=== PATIENT | male | born 1980 | race Caucasian/White ===

== ENCOUNTER 2019-04-18 05:38 | Outpatient (RCR) | payer MEDICARE, SELFPAY | END 2019-04-26 00:01 | LOC: ONCMED 05:38 | PROVIDERS: Family Provider Nurse Practitioner; Visit Provider Internal Medicine Hematology & Oncology | DX: C74.01 Malignant neoplasm of cortex of right adrenal gland (principal); C79.51 Secondary malignant neoplasm of bone; C78.7 Secondary malignant neoplasm of liver and intrahepatic bile duct; E89.6 Postprocedural adrenocortical (-medullary) hypofunction; R93.0 Abnormal findings on diagnostic imaging of skull and head, not elsewhere classified; F17.200 Nicotine dependence, unspecified, uncomplicated; Z90.5 Acquired absence of kidney; Z91.19 Patient's noncompliance with other medical treatment and regimen; Z93.1 Gastrostomy status; Z79.899 Other long term (current) drug therapy ==

== ENCOUNTER 2019-05-14 11:19 | Emergency (ER) | payer MEDICARE, SELFPAY ==
[2019-05-14 11:23] VITALS: BP 124/81; PULSE 99; RESP 20; TEMP 36.4; O2SAT 97; BMI 25.3
--- NOTE | 2019-05-14 11:30 | ED_ITS ---
Entered by Francien Ordonez, acting as scribe for May 14, 2019 11:19 HPI - Fever General: Chief Complaint: Fever Stated Complaint: Fever Time Seen by Provider: 05/14/19 11:52 Source: patient Mode of arrival: ambulatory Limitations: no limitations History of Present Illness: HPI Narrative: 38 yo male presents with fever, cough and congestion. pt states this started 3 days ago. pt states he has cancer and is suppose to be seeing oncology and getting chemo treatments but he has refused till he went to [place]. pt states he now has a follow up at our oncolog ist office next week. pt states he just overall feels like crap . pt denies any other symptoms at this time. MD elicited complaint: fever, weakness (tingling in L hand) and other (chest pain) Onset (ago): day(s) (3 days ago) Context: other (cancer) Exacerbating factors: exertion and other (cough) Relieving factors: nothing Associated symptoms: Reports abdominal pain, chest pain, cough, nasal congestion and other (fever at home 101.9); Deny back/flank pain, confusion, dysuria, extremity pain, headache(s) or night sweats Treatments prior to arrival fever: none Review of Systems Const: Denies: malaise or night sweats Eyes: Denies: change in vision or blurry vision ENMT: Reports: nasal congestion Card: Reports: chest pain Resp: Denies: shortness of breath, productive cough, non-productive cough or wheezing GI: Reports: abdominal pain : Denies: flank pain, difficulty urinating, painful urination, urinary frequency, urinary urgency, urinary incontinence or blood in urine Musc: Denies: neck pain, back pain, extremity pain, extremity swelling, joint pain or joint swelling Skin/Breast: Denies: rash, itching or redness Neuro: Denies: headache, numbness in extremities, weakness in extremities, changes in sensation, lack of coordination, difficulty walking, frequent falls, dizziness, vertigo or confusion Psych: Denies: anxiety, depression, loss of interest, visual hallucinations, auditory hallucinations, suicidal ideation or homicidal ideation Endo: Denies: excessive urination, excessive thirst, tired all the time or cold intolerance Papo/Lymph: Denies: easy bruising, easy bleeding, petechiae, enlarged lymph nodes or tender lymph nodes PFSH ED PFSH: Statuses (acute, chronic, etc) shown below reflect problem list status as previously entered and may not be historically accurate Medical History Cancer (Acute) Social History Smoking and tobacco status: current every day smoker Physical Exam Const: COMMON NORMALS: average body habitus, oriented x3 and alert GENERAL APPEARANCE: cooperative, comfortable, well kempt and well developed NUTRITIONAL APPEARANCE: obese ORIENTATION/CONSCIOUSNESS: Yes awake, Yes oriented to person and Yes oriented to place HENMT: COMMON NORMALS: normocephalic, head/scalp atraumatic, EAC's normal, TM's normal bilaterally, external nose normal, moist oral mucous membranes and oropharynx normal HEAD & SCALP: normocephalic and atraumatic NOSE: external nose normal EXTERNAL AUDITORY CANAL: EAC's normal TYMPANIC MEMBRANE: TM's normal bilaterally MOUTH: oral and palatal mucosa normal, lip normal and tongue normal THROAT: posterior oropharynx normal and tonsils normal Eye: COMMON NORMALS: PERRL, EOMs intact bilaterally, conjunctivae normal and no scleral icterus CONJUNCTIVA: Yes conjunctivae normal PUPIL: Yes PERRL Neck/C-Spine: COMMON NORMALS: full ROM, no lymphadenopathy, supple, no meningeal signs and thyroid normal THYROID: thyroid normal and asymmetrical Lymph: LYMPHATIC: no lymphadenopathy noted Resp: COMMON NORMALS: normal respiratory effort, no retractions, no use of accessory muscles and clear to auscultation bilaterally AUSCULTATION: clear to auscultation bilaterally Cardio: COMMON NORMALS: regular rate and regular rhythm RATE: regular rate RHYTHM: regular rhythm HEART SOUNDS: no murmurs : COMMON NORMALS: Yes no CVA tenderness BLADDER/KIDNEY EXAM: Yes no CVA tenderness Back/Pelvis: COMMON NORMALS: no CVA tenderness LUMBAR SPINE/LOWER BACK: Yes normal to inspection Extremity: COMMON NORMALS: no clubbing, cyanosis or edema, no calf tenderness and no pedal edema Neuro: COMMON NORMALS: oriented x3 SENSORIUM/ORIENTATION: Yes alert, Yes oriented to person and Yes oriented to place MENINGEAL SIGNS: Yes no meningeal signs Psych: APPEARANCE: Yes well kempt Skin: COMMON NORMALS: no rashes or lesions noted and skin turgor normal GENERAL SKIN EXAM: no rashes or lesions noted and turgor normal Course Vital Signs: Vital signs: Vital Signs Temperature 97.5 F L 05/14/19 11:23 Pulse Rate 85 05/14/19 15:00 Respiratory Rate 18 05/14/19 15:00 Blood Pressure 127/88 05/14/19 15:00 Pulse Oximetry 96 05/14/19 15:00 MDM - Fever Lab Data: Labs: Lab Results 05/14/19 05/14/19 05/14/19 Range/Units 13:18 13:18 13:18 WBC 6.7 (4.0-10.0) 10^3/ uL RBC 3.76 L (4.1-5.3) 10^6/u L Hgb 11.0 L (11.7-16.6) g/dL Hct 34.0 L (42.0-52.0) % MCV 90.4 (80-94) fL MCH 29.3 (28.0-34.0) pg MCHC 32.4 (30.0-36.0) g/dL RDW 14.0 (12.1-15.1) % Plt Count 135 (130-400) 10^3/c mm MPV 9.7 (7.4-10.4) fL Neut % (Auto) 68.5 % Lymph % (Auto) 17.7 % Traill % (Auto) 6.9 % Eos % (Auto) 6.2 % Baso % (Auto) 0.5 % Neut # (Auto) 4.6 (1.8-7.7) 10^3/u L Lymph # (Auto) 1.2 (0.8-4.8) 10^3/u L Traill # (Auto) 0.5 (0.2-0.9) 10^3/u L Eos # (Auto) 0.4 (0.0-0.8) 10^3/u L Baso # (Auto) 0.0 (0.0-0.1) 10^3/u L Nucleated RBC % (a uto) 0 % Nucleated RBCs # 0.0 /100WBC Sodium 130 L (136-145) mmol/L Potassium 4.4 (3.5-5.1) mmol/L Chloride 99 (98-107) mmol/L Carbon Dioxide 19 L (22-29) mmol/L Anion Gap 16.4 (5-19) BUN 20 (6-20) mg/dL Creatinine 1.0 (0.7-1.2) mg/dL GFR Calculation 83.2 L (90-130) mL/min Glucose 118 H (74-109) mg/dL Calcium 7.4 L (8.6-10.0) mg/Dl Total Bilirubin 0.2 (0.15-1.2) mg/dL AST 119 H (0-40) U/L ALT 58 H (0-41) U/L Alkaline Phosphata se 187 H (40-130) IU/L Total Protein 6.9 (6.6-8.7) g/dL Albumin 3.4 L (3.5-5.2) g/dL Globulin 3.5 (1.3-4.6) g/dL Lipase 32 (13-60) U/L Urine Color (Yellow) Urine Appearance (CLEAR) Urine pH (5-7) Ur Specific Gravit y (1.005-1.030) Urine Protein (Negative) Urine Glucose (UA) (Normal) Urine Ketones (Negative) Urine Occult Blood (Negative) Urine Nitrate (Negative) Urine Bilirubin (NEGATIVE) Urine Urobilinogen (Negative) mg/dL Ur Leukocyte Jesi ase (Negative) Urine RBC (0-2) /hpf Urine WBC (0-5) /hpf Ur Squamous Epith Cells (0-5) Amorphous Sediment Urine Bacteria (NONE) Hyaline Casts Coarse Granular Ca sts /lpf Urine Mucus Influenza Type A A g (Negative) POC Influenza B Ag (Negative) 05/14/19 05/14/19 Range/Units 13:23 13:43 WBC (4.0-10.0) 10^3/ uL RBC (4.1-5.3) 10^6/u L Hgb (11.7-16.6) g/dL Hct (42.0-52.0) % MCV (80-94) fL MCH (28.0-34.0) pg MCHC (30.0-36.0) g/dL RDW (12.1-15.1) % Plt Count (130-400) 10^3/c mm MPV (7.4-10.4) fL Neut % (Auto) % Lymph % (Auto) % Traill % (Auto) % Eos % (Auto) % Baso % (Auto) % Neut # (Auto) (1.8-7.7) 10^3/u L Lymph # (Auto) (0.8-4.8) 10^3/u L Traill # (Auto) (0.2-0.9) 10^3/u L Eos # (Auto) (0.0-0.8) 10^3/u L Baso # (Auto) (0.0-0.1) 10^3/u L Nucleated RBC % (a uto) % Nucleated RBCs # /100WBC Sodium (136-145) mmol/L Potassium (3.5-5.1) mmol/L Chloride (98-107) mmol/L Carbon Dioxide (22-29) mmol/L Anion Gap (5-19) BUN (6-20) mg/dL Creatinine (0.7-1.2) mg/dL GFR Calculation (90-130) mL/min Glucose (74-109) mg/dL Calcium (8.6-10.0) mg/Dl Total Bilirubin (0.15-1.2) mg/dL AST (0-40) U/L ALT (0-41) U/L Alkaline Phosphata se (40-130) IU/L Total Protein (6.6-8.7) g/dL Albumin (3.5-5.2) g/dL Globulin (1.3-4.6) g/dL Lipase (13-60) U/L Urine Color Yellow (Yellow) Urine Appearance Sl hazy (CLEAR) Urine pH 5 (5-7) Ur Specific Gravit y 1.020 (1.005-1.030) Urine Protein 1+ H (Negative) Urine Glucose (UA) Norm (Normal) Urine Ketones 1+ H (Negative) Urine Occult Blood 2+ H (Negative) Urine Nitrate Negative (Negative) Urine Bilirubin 1+ H (NEGATIVE) Urine Urobilinogen 4 H (Negative) mg/dL Ur Leukocyte Jesi ase Negative (Negative) Urine RBC 5-10 H (0-2) /hpf Urine WBC 10-15 H (0-5) /hpf Ur Squamous Epith Cells 10-15 H (0-5) Amorphous Sediment Trace Urine Bacteria 1+ H (NONE) Hyaline Casts 5-10 H Coarse Granular Ca sts 5-10 H /lpf Urine Mucus Trace Influenza Type A A g Positive H (Negative) POC Influenza B Ag Negative (Negative) Imaging Data^: CT Abd/Pel: Radiologist's impression: PROCEDURE INFORMATION: Exam: CT Abdomen And Pelvis With Contrast Exam date and time: 05/14/2019 1:04 PM Age: 38 years old Clinical indication: Abdominal pain, fever TECHNIQUE: Imaging protocol: Computed tomography of the abdomen and pelvis with intravenous contrast. Total DLP: 683.12 mGy-cm Radiation optimization: All CT scans at this facility use at least one of these dose optimization techniques: automated exposure control; mA and/or kV adjustment per patient size (includes targeted exams where dose is matched to clinical indication); or iterative reconstruction. Contrast material: VISIPAQUE; Contrast volume: 75 ml; Contrast route: IV; COMPARISON: CT ABDOMEN/PELVIS 12/14/2018 9:28 PM FINDINGS: Lungs: Calcified pulmonary granuloma in the right lower lobe. Minimal scarring or atelectasis in the left lower lobe. Liver: Multiple somewhat ill-defined, low-attenuation mass lesions are present in the liver compatible with metastatic disease. The largest appears to be in segment 1 and appears to have increased slightly in size, currently measuring approximately 5.3 cm worse previously it measured 5 cm in size. Gallbladder and bile ducts: Prior cholecystectomy. No biliary ductal dilatation allowing for that. Pancreas: No change since the prior exam. Spleen: Calcified granulomas present in a nonenlarged spleen. Adrenals: No left adrenal mass. A normal right adrenal gland is not visualized. This may have been removed given the fact that there are multiple clips in that location, but there is also a soft tissue mass in the typical location of the adrenal gland and therefore this may be an adrenal metastatic lesion versus local recurrence of malignancy. Correlate with whether not the patient has had a prior right adrenalectomy in the patient's surgical record. Kidneys and ureters: Prior right nephrectomy. No left renal mass, calculus, or hydronephrosis. Stomach and bowel: No acute osseous abnormality. Appendix: No ascites or pneumoperitoneum. Intraperitoneal space: No ascites or pneumoperitoneum. No abscess. Vasculature: No abdominal aortic aneurysm. No iliac or common femoral artery aneurysm. The mesenteric arteries are patent. There is mass effect upon the main portal vein, and near complete compression of the left portal vein, by the dominant metastatic deposit in segment 1. Lymph nodes: No enlarged lymph nodes. Bladder: The urinary bladder is small in volume. No bladder calculus. Reproductive: Unremarkable as visualized. Bones/joints: Lytic osseous metastatic deposits are present in the anterior right acetabulum and adjacent superior pubic ramus, posterior medial right ilium, and L4 vertebral body where the patient has had prior vertebral augmentation. No sign of progression of the osseous metastatic deposits. No change in a nonspecific sclerotic focus in the medial left ilium. Soft tissues: There is a soft tissue mass adjacent to the inferior margin of the left lobe of the liver. This mass currently measures approximately 7.9 cm in size whereas previously it measured 7 cm in size. This is compatible with enlargement of a neoplastic deposit. There is a partially calcified soft tissue mass and thickening of the adjacent posterior inferior diaphragm on the right. This is unchanged. This is likely related to neoplasm. CT/CT abdomen pelvis w con* [id number] IMPRESSION: 1. Progression of malignancy involving the liver, and left subhepatic space. 2. Osseous metastatic deposits appears stable. 3. 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 Condition: Stable Prescriptions: New Tamiflu 75 mg capsule 75 mg PO BID 5 Days Qty: 10 RF: 0 No Action Lysodren 500 mg tablet 2,500 mg PO BID RF: 0 alprazolam 1 mg tablet 1 mg PO BID RF: 0 morphine 30 mg tablet extended release 30 mg PO BID RF: 0 ondansetron 8 mg tablet,disintegrating 8 mg PO Q12H RF: 0 oxycodone-acetaminophen 10-325 mg tablet 1 tab PO Q6H PRN (Reason: Pain) RF: 0 morphine 15 mg tablet extended release 15 mg PO BID RF: 0 hydrocortisone 10 mg tablet 30 mg PO DAILY RF: 0 lorazepam 1 mg tablet 1 mg PO TID PRN (Reason: Nausea) RF: 0 sertraline 50 mg tablet 50 mg PO DAILY RF: 0 Discharge Orders: Discharge Order (Routine); Ordered 05/14/19 Ordered By: Chris Cisneros Referrals: Natividad Ying FNP [Primary Care Provider] - Activity Restrictions/Additional Instructions: Supportive care Tylenol and ibuprofen as needed follow-up with her oncologist as planned previously. Interventions: ED Discharge Assessment Last Done: 05/14/19 15:00 Discharge Date/Time: 05/14/19 14:55 Coding Level of Care Code ED [employer]ating Inspector for Chg Fwd Exam Problem Focused The documentation recorded by the José Luis green Bridget Annette, accurately reflects the service I personally performed and the decisions made by , Chris Cisneros, May 14, 2019 11:19
--- NOTE | 2019-05-14 12:46 | CTR_ITS ---
PROCEDURE INFORMATION: Exam: CT Abdomen And Pelvis With Contrast Exam date and time: 05/14/2019 1:04 PM Age: 38 years old Clinical indication: Abdominal pain, fever TECHNIQUE: Imaging protocol: Computed tomography of the abdomen and pelvis with intravenous contrast. Total DLP: 683.12 mGy-cm Radiation optimization: All CT scans at this facility use at least one of these dose optimization techniques: automated exposure control; mA and/or kV adjustment per patient size (includes targeted exams where dose is matched to clinical indication); or iterative reconstruction. Contrast material: VISIPAQUE; Contrast volume: 75 ml; Contrast route: IV; COMPARISON: CT ABDOMEN/PELVIS 12/14/2018 9:28 PM FINDINGS: Lungs: Calcified pulmonary granuloma in the right lower lobe. Minimal scarring or atelectasis in the left lower lobe. Liver: Multiple somewhat ill-defined, low-attenuation mass lesions are present in the liver compatible with metastatic disease. The largest appears to be in segment 1 and appears to have increased slightly in size, currently measuring approximately 5.3 cm worse previously it measured 5 cm in size. Gallbladder and bile ducts: Prior cholecystectomy. No biliary ductal dilatation allowing for that. Pancreas: No change since the prior exam. Spleen: Calcified granulomas present in a nonenlarged spleen. Adrenals: No left adrenal mass. A normal right adrenal gland is not visualized. This may have been removed given the fact that there are multiple clips in that location, but there is also a soft tissue mass in the typical location of the adrenal gland and therefore this may be an adrenal metastatic lesion versus local recurrence of malignancy. Correlate with whether not the patient has had a prior right adrenalectomy in the patient's surgical record. Kidneys and ureters: Prior right nephrectomy. No left renal mass, calculus, or hydronephrosis. Stomach and bowel: No acute osseous abnormality. Appendix: No ascites or pneumoperitoneum. Intraperitoneal space: No ascites or pneumoperitoneum. No abscess. Vasculature: No abdominal aortic aneurysm. No iliac or common femoral artery aneurysm. The mesenteric arteries are patent. There is mass effect upon the main portal vein, and near complete compression of the left portal vein, by the dominant metastatic deposit in segment 1. Lymph nodes: No enlarged lymph nodes. Bladder: The urinary bladder is small in volume. No bladder calculus. Reproductive: Unremarkable as visualized. Bones/joints: Lytic osseous metastatic deposits are present in the anterior right acetabulum and adjacent superior pubic ramus, posterior medial right ilium, and L4 vertebral body where the patient has had prior vertebral augmentation. No sign of progression of the osseous metastatic deposits. No change in a nonspecific sclerotic focus in the medial left ilium. Soft tissues: There is a soft tissue mass adjacent to the inferior margin of the left lobe of the liver. This mass currently measures approximately 7.9 cm in size whereas previously it measured 7 cm in size. This is compatible with enlargement of a neoplastic deposit. There is a partially calcified soft tissue mass and thickening of the adjacent posterior inferior diaphragm on the right. This is unchanged. This is likely related to neoplasm. CT/CT abdomen pelvis w con* [id number] IMPRESSION: 1. Progression of malignancy involving the liver, and left subhepatic space. 2. Osseous metastatic deposits appears stable. 3. 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 Radiation Dose CTDIVOL = (mGy): DLP = 683.12 (mGy-cm)
[2019-05-14] MEDS: ondansetron 2 mg/ML SDV 2 mL 4 MG IVP (13:18)
[2019-05-14] MEDS: morphine 4 mg/mL SDV 1 mL IVP (13:18)
[2019-05-14 13:22] LABS: Basophils % 0.5 %; Eosinophils # 0.4 10^3/uL (0.0-0.8); Eosinophils % 6.2 %; Lymphocytes # 1.2 10^3/uL (0.8-4.8); Lymphocytes % 17.7 %; Mean Corpuscular HGB Conc 32.4 g/dL (30.0-36.0); Mean Corpuscular Hemoglobin 29.3 pg (28.0-34.0); Mean Corpuscular Volume 90.4 fL (80-94); Mean Platelet Volume 9.7 fL (7.4-10.4); Monocytes # 0.5 10^3/uL (0.2-0.9); Monocytes % 6.9 %; Neutrophils # 4.6 10^3/uL (1.8-7.7); Neutrophils % 68.5 %; Nucleated Red Blood Cells % 0 %; Platelet Count 135 10^3/cmm (130-400); Red Blood Count 3.76 10^6/uL (4.1-5.3); White Blood Count 6.7 10^3/uL (4.0-10.0)
[2019-05-14 13:32] VITALS: BP 123/83; PULSE 79; O2SAT 96
[2019-05-14 13:37] LABS: Alanine Aminotransferase 58 U/L (0-41); Albumin Level 3.4 g/dL (3.5-5.2); Alkaline Phosphatase 187 IU/L (40-130); Anion Gap 16.4 (5-19); Aspartate Amino Transferase 119 U/L (0-40); Blood Urea Nitrogen 20 mg/dL (6-20); Calcium 7.4 mg/Dl (8.6-10.0); Carbon Dioxide 19 mmol/L (22-29); Chloride 99 mmol/L (98-107); Globulin 3.5 g/dL (1.3-4.6); Glomerular Filtration Rate 83.2 mL/min (90-130); Glucose 118 mg/dL (74-109); Potassium 4.4 mmol/L (3.5-5.1); Sodium 130 mmol/L (136-145); Total Bilirubin 0.2 mg/dL (0.15-1.2); Total Protein 6.9 g/dL (6.6-8.7)
[2019-05-14] MEDS: iodixanol 320 mg/mL 100mL Btl IV (13:51)
--- NOTE | 2019-05-14 13:57 | PC.NURSE ---
pt transported to CT by stretcher with tech
--- NOTE | 2019-05-14 14:01 | XRR_ITS ---
PROCEDURE INFORMATION: Exam: XR Chest, 1 View Exam date and time: 05/14/2019 2:02 PM Age: 38 years old Clinical indication: Fever, HX cancer TECHNIQUE: Imaging protocol: XR of the chest Views: 1 view. COMPARISON: [place] Chest 1 [place] [id number] 02/26/2019 6:16 PM FINDINGS: Tubes, catheters and devices: There is a left jugular port present with the catheter tip at/near the cavoatrial junction. Lungs: No focal peripheral lung consolidation, air bronchogram formation, or silhouette sign. Pleural space: No pleural effusion or pneumothorax. Heart/Mediastinum: The heart is not enlarged. The mediastinal contours are normal. Bones/joints: No acute osseous abnormality. XR/XR chest 1V portable [id number] IMPRESSION: No pneumonia.
--- NOTE | 2019-05-14 14:08 | PC.NURSE ---
pt returned from CT
[2019-05-14 14:15] VITALS: RESP 18
[2019-05-14] MEDS: HYDROmorphone 1 mg/mL INJ 1 mL IVP (14:15)
[2019-05-14 14:16] LABS: Influenza A by IFA Positive (Negative); Influenza B by IFA Negative (Negative)
[2019-05-14 14:17] LABS: Lipase 32 U/L (13-60)
[2019-05-14 14:22] LABS: Bilirubin Urine 1+ (NEGATIVE); Blood Urine 2+ (Negative); Glucose Urine UA Norm (Normal); Ketones Urine 1+ (Negative); Nitrate Urine Negative (Negative); Protein Urine 1+ (Negative); Urine Appearance SL Hazy (CLEAR); Urine Color Yellow (Yellow); Urobilinogen Urine 4 mg/dL (Negative); pH Urine 5 (5-7)
[2019-05-14 14:23] LABS: Add Urine Microscopic? YES; Leukocyte Esterase Urine Negative (Negative)
[2019-05-14 14:36] LABS: Mucus Urine TRACE
[2019-05-14 14:38] LABS: Amorphous Sediment Urine TRACE; Bacteria Urine 1+
[2019-05-14 14:39] LABS: Add Urine Culture? No
[2019-05-14 15:00] VITALS: BP 127/88; PULSE 85; RESP 18; O2SAT 96
== END 2019-05-14 14:55 | disposition home or self-care (01) ==
PROVIDERS: Emergency Provider Family Medicine; Family Provider Nurse Practitioner; PCP Nurse Practitioner
DX: J11.1 Influenza due to unidentified influenza virus with other respiratory manifestations (principal); C74.90 Malignant neoplasm of unspecified part of unspecified adrenal gland; C79.9 Secondary malignant neoplasm of unspecified site; F17.210 Nicotine dependence, cigarettes, uncomplicated
CPT/HCPCS: 36591; 71045; 74177; 80053; 81003; 83690; 85025; 87804; 96374; 99282; J1170; J1642; J2270; J2405; Q9967

== ENCOUNTER 2019-05-22 10:06 | Inpatient (IN) | payer MEDICARE, SELFPAY ==
[2019-05-22] VITALS (47 sets, daily range): BP systolic 91–109; BP diastolic 47–72; PULSE 88–125; RESP 20–40; TEMP 36.7–37.1; O2SAT 91–98; BMI 22.8
--- NOTE | 2019-05-22 10:08 | ED_ITS ---
Entered by Gómez Rivera, acting as scribe for Ute Webb HPI - SOB/Dyspnea General: Chief Complaint: Shortness of Breath/Dyspnea Stated Complaint: SOB; HX OF CA Time Seen by Provider: 05/22/19 10:07 History of Present Illness: HPI Narrative: 38 yo male presents with shortness of breath. Pt has a history of cancer. Pts o2 sats are staying in the low 90s even on 4 liters of o2. He states he woke up this way. He felt fine yesterday. Patient is a poor historian secondary to effort. He denies any other symptoms such as chest pain, abdominal pain or fever. MD elicited complaint: shortness of breath Pertinent past history: other (renal cancer) Onset (ago): day(s) Timing: constant Severity: moderate Exacerbating factors: exertion Relieving factors: nothing Known history of: other Associated symptoms: Deny abdominal pain, chest congestion, chest pain, diaphoresis, dizziness, extremity pain, fever(s), hemoptysis, nausea, orthopnea, palpitations, polydipsia, syncope or vomiting Treatment prior to arrival: oxygen and other (breathing treatments) Review of Systems General: Reports: other (negative unless marked) Const: Reports: malaise; Denies: fever, chills, body aches, fatigue or diaphoresis Eyes: Denies: change in vision or blurry vision ENMT: Denies: throat pain, painful swallowing, hoarseness, ear pain, ear discharge, Change in hearing or nasal discharge Card: Denies: chest pain, palpitations, irregular heart rhythm, syncope, pre- syncope, shortness of breath on exertion or shortness of breath when lying down Resp: Reports: shortness of breath, non-productive cough and wheezing; Denies: productive cough, coughing up blood or chest congestion GI: Denies: abdominal pain, nausea, vomiting, vomiting blood, coffee grounds in vomit, diarrhea, constipation, cramping, blood in stool or black tarry stool : Denies: flank pain, difficulty urinating, painful urination, urinary frequency, urinary urgency, decreased urine ouput, urinary incontinence or blood in urine Musc: Denies: neck pain, back pain, extremity pain, extremity swelling, joint pain, joint swelling, joint warmth or joint stiffness Skin/Breast: Denies: rash, skin tenderness or yellow skin Neuro: Denies: headache, numbness in extremities, weakness in extremities, changes in sensation, lack of coordination, difficulty walking, dizziness, vertigo or confusion Endo: Denies: excessive thirst, tired all the time, cold intolerance, excessive sweating, flushing or hot flashes Papo/Lymph: Denies: easy bruising, easy bleeding, petechiae or enlarged lymph nodes All/Imm: Denies: hives, throat swelling, tongue swelling, facial swelling or acute wheezing PFSH ED PFSH: Statuses (acute, chronic, etc) shown below reflect problem list status as previously entered and may not be historically accurate Medical History Adrenal insufficiency (Acute) Cancer (Acute) Social History Smoking and tobacco status: current every day smoker Physical Exam Const: COMMON NORMALS: no apparent distress, oriented x3, no limitations, healthy appearing and well nourished EXAM LIMITATIONS: no altered mental status GENERAL APPEARANCE: cooperative, well kempt and well developed ORIENTATION/CONSCIOUSNESS: Yes awake HENMT: COMMON NORMALS: normocephalic, head/scalp atraumatic, hearing grossly normal bilaterally, external ears normal, EAC's normal, external nose normal and moist oral mucous membranes HEAD & SCALP: normal to inspection, normocephalic and atraumatic FACE & SINUS: normal facial exam and face symmetric NOSE: external nose normal and nares normal EXTERNAL EAR: Yes external ears normal EXTERNAL AUDITORY CANAL: EAC's normal MOUTH: oral and palatal mucosa normal and tongue normal Eye: COMMON NORMALS: PERRL, EOMs intact bilaterally, conjunctivae normal and no scleral icterus GENERAL EYE: normal appearance of both eyes and normal light reflex CONJUNCTIVA: Yes conjunctivae normal SCLERA: sclerae normal CORNEA: Yes corneas normal PUPIL: Yes PERRL DIRECT OPHTHALMOSCOPY: Yes normal light reflex Neck/C-Spine: COMMON NORMALS: full ROM, no lymphadenopathy, supple, no meningeal signs and no JVD GENERAL: Yes normal visual inspection and Yes trachea midline CERVICAL SPINE: Yes cervical ROM normal Chest: COMMONS NORMALS: inspection of chest normal and palpation of chest normal Resp: COMMON NORMALS: normal respiratory effort, no retractions, no use of accessory muscles and clear to auscultation bilaterally EFFORT & INSPECTION: Yes able to speak in complete sentences AUSCULTATION: clear to auscultation bilaterally Cardio: COMMON NORMALS: no JVD, regular rate, regular rhythm, S1 normal heart sound, S2 normal heart sound, no gallops, no clicks, no murmurs and no rub JUGULAR VENOUS DISTENTION: no JVD RATE: regular rate RHYTHM: regular rhythm HEART SOUNDS: S1 normal and S2 normal GI: COMMON NORMALS: soft to palpation, non-tender, no hepatosplenomegaly and no masses INSPECTION: Yes normal to inspection PALPATION: Yes soft and Yes no hepatosplenomegaly : COMMON NORMALS: Yes no CVA tenderness BLADDER/KIDNEY EXAM: Yes no CVA tenderness Back/Pelvis: COMMON NORMALS: no CVA tenderness, thoracic and lumbar spine normal to inspection, no thoracic nor lumbar tenderness and thoraco-lumbar ROM normal Extremity: COMMON NORMALS: normal to inspection, full ROM, normal capillary refill, no joint enlargement, no clubbing, cyanosis or edema and no calf tenderness Neuro: COMMON NORMALS: oriented x3, CN's II-XII intact bilaterally, moves all extremities, no focal motor deficits and no sensory deficits noted MENINGEAL SIGNS: Yes no meningeal signs Psych: COMMON NORMALS: mental status grossly normal, thought process normal, cooperative, affect normal, speech normal and activity/motor behavior normal APPEARANCE: Yes well kempt SPEECH: Yes normal speech THOUGHT PROCESS: normal thought process Skin: COMMON NORMALS: no rashes or lesions noted, skin turgor normal, no jaundice, no petechiae and no mottling GENERAL SKIN EXAM: no rashes or lesions noted and turgor normal Course Vital Signs: Vital signs: Vital Signs Pulse Rate 113 H 05/22/19 10:40 Respiratory Rate 26 H 05/22/19 10:26 Blood Pressure 91/47 05/22/19 10:07 Pulse Oximetry 97 05/22/19 10:48 MDM - SOB/Dyspnea MDM Narrative: Medical decision making narrative: Soledad Duong is a 38-year-old male who comes in with the complaint of shortness of breath. It is noted that he is tachycardic and hypotensive and he feels febrile although he is not febrile my measurement. Patient states he was in normal state of health yesterday. Patient has known adrenal cancer is unclear what his last treatment was he is on sure. Patient has known adrenal insufficiency. Differentials long would include adrenal crisis, infection, pulmonary realism, pneumothorax, pneumonia among others. Differentials quite extensive. We will institute therapy with IV fluids and stabilization of his blood pressure as well as try to establish a definitive cause. Discharge -patient comes in hypotensive and tachycardic. His CT scan shows no sign of PE. I have replaced his magnesium and his calcium. He has had replacement of his fluids with saline. He is currently on Levophed but his heart rate is improved and his blood pressure is improved. The case was reviewed with Dr. Santos and he is agreeable to admission. Further care be d ictated by him. Lab Data: Attestation: I reviewed the patient's lab results. Labs: Lab Results 05/22/19 05/22/19 05/22/19 Range/Units 10:18 10:24 10:24 WBC 13.4 H (4.0-10.0) 10^3/ uL RBC 3.89 L (4.1-5.3) 10^6/u L Hgb 11.5 L (11.7-16.6) g/dL Hct 34.4 L (42.0-52.0) % MCV 88.4 (80-94) fL MCH 29.6 (28.0-34.0) pg MCHC 33.4 (30.0-36.0) g/dL RDW 13.7 (12.1-15.1) % Plt Count 248 (130-400) 10^3/c mm MPV 8.8 (7.4-10.4) fL Neut % (Auto) 74.3 % Lymph % (Auto) 19.0 % Lincoln % (Auto) 3.9 % Eos % (Auto) 2.1 % Baso % (Auto) 0.1 % Neut # (Auto) 9.9 H (1.8-7.7) 10^3/u L Lymph # (Auto) 2.5 (0.8-4.8) 10^3/u L Lincoln # (Auto) 0.5 (0.2-0.9) 10^3/u L Eos # (Auto) 0.3 (0.0-0.8) 10^3/u L Baso # (Auto) 0.0 (0.0-0.1) 10^3/u L Nucleated RBC % (a uto) 0 % Nucleated RBCs # 0.0 /100WBC PT 15.10 H (10.5-13.3) SECO NDS INR 1.15 (0.8-1.2) APTT 34.3 (23.9-36.7) SECO NDS Specimen Type Arterial Sample Site Radial, right ABG pH 7.41 (7.35-7.45) ABG pCO2 26.1 L (35-45) mmHg ABG pO2 58.1 L (80.0-100.0) mmH g ABG HCO3 16.6 L (22-26) mmol/L ABG Base Excess -6.6 L (-2.0-2.0) mmol/ L Angel Test N/a Hematocrit 36.8 L (42-52) % O2 Delivery Device Nc O2 Liters/Min 4.0 % Roll Up Machine Operator ID monro Sodium (136-145) mmol/L Potassium (3.5-5.1) mmol/L Chloride (98-107) mmol/L Carbon Dioxide (22-29) mmol/L Anion Gap (5-19) BUN (6-20) mg/dL Creatinine (0.7-1.2) mg/dL GFR Calculation (90-130) mL/min Glucose (74-109) mg/dL Lactic Acid (0.5-2.2) mmol/L Calcium (8.5-10.5) mg/dL Magnesium (1.7-2.3) mg/dL Total Bilirubin (0.15-1.2) mg/dL AST (0-40) U/L ALT (0-41) U/L Alkaline Phosphata se (40-130) IU/L Troponin T Baselin e (0-15) ng/mL Troponin T 120 Min [place] (0-15) ng/mL Delta Troponin T (0-10) ABS# Total Protein (6.6-8.7) g/dL Albumin (3.5-5.2) g/dL Globulin (1.3-4.6) g/dL Urine Color (Yellow) Urine Appearance (CLEAR) Urine pH (5-7) Ur Specific Gravit y (1.005-1.030) Urine Protein (Negative) Urine Glucose (UA) (Normal) Urine Ketones (Negative) Urine Occult Blood (Negative) Urine Nitrate (Negative) Urine Bilirubin (NEGATIVE) Urine Urobilinogen (Negative) mg/dL Ur Leukocyte Jesi ase (Negative) Urine RBC (0-2) /hpf Urine WBC (0-5) /hpf Ur Squamous Epith Cells (0-5) Urine Bacteria (NONE) Hyaline Casts Urine Mucus Influenza Type A A g (Negative) POC Influenza B Ag (Negative) 05/22/19 05/22/19 05/22/19 Range/Units 10:24 10:24 10:24 WBC (4.0-10.0) 10^3/ uL RBC (4.1-5.3) 10^6/u L Hgb (11.7-16.6) g/dL Hct (42.0-52.0) % MCV (80-94) fL MCH (28.0-34.0) pg MCHC (30.0-36.0) g/dL RDW (12.1-15.1) % Plt Count (130-400) 10^3/c mm MPV (7.4-10.4) fL Neut % (Auto) % Lymph % (Auto) % Lincoln % (Auto) % Eos % (Auto) % Baso % (Auto) % Neut # (Auto) (1.8-7.7) 10^3/u L Lymph # (Auto) (0.8-4.8) 10^3/u L Lincoln # (Auto) (0.2-0.9) 10^3/u L Eos # (Auto) (0.0-0.8) 10^3/u L Baso # (Auto) (0.0-0.1) 10^3/u L Nucleated RBC % (a uto) % Nucleated RBCs # /100WBC PT (10.5-13.3) SECO NDS INR (0.8-1.2) APTT (23.9-36.7) SECO NDS Specimen Type Sample Site ABG pH (7.35-7.45) ABG pCO2 (35-45) mmHg ABG pO2 (80.0-100.0) mmH g ABG HCO3 (22-26) mmol/L ABG Base Excess (-2.0-2.0) mmol/ L Angel Test Hematocrit (42-52) % O2 Delivery Device O2 Liters/Min % Roll Up Machine Operator ID Sodium 131 L (136-145) mmol/L Potassium 3.6 (3.5-5.1) mmol/L Chloride 99 (98-107) mmol/L Carbon Dioxide 16 L (22-29) mmol/L Anion Gap 19.6 H (5-19) BUN 17 (6-20) mg/dL Creatinine 1.8 H (0.7-1.2) mg/dL GFR Calculation 42.2 L (90-130) mL/min Glucose 79 (74-109) mg/dL Lactic Acid (0.5-2.2) mmol/L Calcium 7.2 L (8.5-10.5) mg/dL Magnesium 1.1 L (1.7-2.3) mg/dL Total Bilirubin 1.4 H (0.15-1.2) mg/dL AST 32 (0-40) U/L ALT 12 (0-41) U/L Alkaline Phosphata se 194 H (40-130) IU/L Troponin T Baselin e 11 (0-15) ng/mL Troponin T 120 Min [place] (0-15) ng/mL Delta Troponin T (0-10) ABS# Total Protein 7.2 (6.6-8.7) g/dL Albumin 3.6 (3.5-5.2) g/dL Globulin 3.6 (1.3-4.6) g/dL Urine Color (Yellow) Urine Appearance (CLEAR) Urine pH (5-7) Ur Specific Gravit y (1.005-1.030) Urine Protein (Negative) Urine Glucose (UA) (Normal) Urine Ketones (Negative) Urine Occult Blood (Negative) Urine Nitrate (Negative) Urine Bilirubin (NEGATIVE) Urine Urobilinogen (Negative) mg/dL Ur Leukocyte Jesi ase (Negative) Urine RBC (0-2) /hpf Urine WBC (0-5) /hpf Ur Squamous Epith Cells (0-5) Urine Bacteria (NONE) Hyaline Casts Urine Mucus Influenza Type A A g (Negative) POC Influenza B Ag (Negative) 05/22/19 05/22/19 05/22/19 Range/Units 10:24 10:45 12:21 WBC (4.0-10.0) 10^3/ uL RBC (4.1-5.3) 10^6/u L Hgb (11.7-16.6) g/dL Hct (42.0-52.0) % MCV (80-94) fL MCH (28.0-34.0) pg MCHC (30.0-36.0) g/dL RDW (12.1-15.1) % Plt Count (130-400) 10^3/c mm MPV (7.4-10.4) fL Neut % (Auto) % Lymph % (Auto) % Lincoln % (Auto) % Eos % (Auto) % Baso % (Auto) % Neut # (Auto) (1.8-7.7) 10^3/u L Lymph # (Auto) (0.8-4.8) 10^3/u L Lincoln # (Auto) (0.2-0.9) 10^3/u L Eos # (Auto) (0.0-0.8) 10^3/u L Baso # (Auto) (0.0-0.1) 10^3/u L Nucleated RBC % (a uto) % Nucleated RBCs # /100WBC PT (10.5-13.3) SECO NDS INR (0.8-1.2) APTT (23.9-36.7) SECO NDS Specimen Type Sample Site ABG pH (7.35-7.45) ABG pCO2 (35-45) mmHg ABG pO2 (80.0-100.0) mmH g ABG HCO3 (22-26) mmol/L ABG Base Excess (-2.0-2.0) mmol/ L Angel Test Hematocrit (42-52) % O2 Delivery Device O2 Liters/Min % Roll Up Machine Operator ID Sodium (136-145) mmol/L Potassium (3.5-5.1) mmol/L Chloride (98-107) mmol/L Carbon Dioxide (22-29) mmol/L Anion Gap (5-19) BUN (6-20) mg/dL Creatinine (0.7-1.2) mg/dL GFR Calculation (90-130) mL/min Glucose (74-109) mg/dL Lactic Acid 2.1 (0.5-2.2) mmol/L Calcium (8.5-10.5) mg/dL Magnesium (1.7-2.3) mg/dL Total Bilirubin (0.15-1.2) mg/dL AST (0-40) U/L ALT (0-41) U/L Alkaline Phosphata se (40-130) IU/L Troponin T Baselin e (0-15) ng/mL Troponin T 120 Min [place] 13.14 (0-15) ng/mL Delta Troponin T 2.14 (0-10) ABS# Total Protein (6.6-8.7) g/dL Albumin (3.5-5.2) g/dL Globulin (1.3-4.6) g/dL Urine Color (Yellow) Urine Appearance (CLEAR) Urine pH (5-7) Ur Specific Gravit y (1.005-1.030) Urine Protein (Negative) Urine Glucose (UA) (Normal) Urine Ketones (Negative) Urine Occult Blood (Negative) Urine Nitrate (Negative) Urine Bilirubin (NEGATIVE) Urine Urobilinogen (Negative) mg/dL Ur Leukocyte Jesi ase (Negative) Urine RBC (0-2) /hpf Urine WBC (0-5) /hpf Ur Squamous Epith Cells (0-5) Urine Bacteria (NONE) Hyaline Casts Urine Mucus Influenza Type A A g Negative (Negative) POC Influenza B Ag Negative (Negative) 05/22/19 Range/Units 12:45 WBC (4.0-10.0) 10^3/ uL RBC (4.1-5.3) 10^6/u L Hgb (11.7-16.6) g/dL Hct (42.0-52.0) % MCV (80-94) fL MCH (28.0-34.0) pg MCHC (30.0-36.0) g/dL RDW (12.1-15.1) % Plt Count (130-400) 10^3/c mm MPV (7.4-10.4) fL Neut % (Auto) % Lymph % (Auto) % Lincoln % (Auto) % Eos % (Auto) % Baso % (Auto) % Neut # (Auto) (1.8-7.7) 10^3/u L Lymph # (Auto) (0.8-4.8) 10^3/u L Lincoln # (Auto) (0.2-0.9) 10^3/u L Eos # (Auto) (0.0-0.8) 10^3/u L Baso # (Auto) (0.0-0.1) 10^3/u L Nucleated RBC % (a uto) % Nucleated RBCs # /100WBC PT (10.5-13.3) SECO NDS INR (0.8-1.2) APTT (23.9-36.7) SECO NDS Specimen Type Sample Site ABG pH (7.35-7.45) ABG pCO2 (35-45) mmHg ABG pO2 (80.0-100.0) mmH g ABG HCO3 (22-26) mmol/L ABG Base Excess (-2.0-2.0) mmol/ L Angel Test Hematocrit (42-52) % O2 Delivery Device O2 Liters/Min % Roll Up Machine Operator ID Sodium (136-145) mmol/L Potassium (3.5-5.1) mmol/L Chloride (98-107) mmol/L Carbon Dioxide (22-29) mmol/L Anion Gap (5-19) BUN (6-20) mg/dL Creatinine (0.7-1.2) mg/dL GFR Calculation (90-130) mL/min Glucose (74-109) mg/dL Lactic Acid (0.5-2.2) mmol/L Calcium (8.5-10.5) mg/dL Magnesium (1.7-2.3) mg/dL Total Bilirubin (0.15-1.2) mg/dL AST (0-40) U/L ALT (0-41) U/L Alkaline Phosphata se (40-130) IU/L Troponin T Baselin e (0-15) ng/mL Troponin T 120 Min [place] (0-15) ng/mL Delta Troponin T (0-10) ABS# Total Protein (6.6-8.7) g/dL Albumin (3.5-5.2) g/dL Globulin (1.3-4.6) g/dL Urine Color Straw (Yellow) Urine Appearance Clear (CLEAR) Urine pH 5 (5-7) Ur Specific Gravit y 1.005 (1.005-1.030) Urine Protein Neg (Negative) Urine Glucose (UA) Norm (Normal) Urine Ketones Negative (Negative) Urine Occult Blood Neg (Negative) Urine Nitrate Negative (Negative) Urine Bilirubin Neg (NEGATIVE) Urine Urobilinogen Norm (Negative) mg/dL Ur Leukocyte Jesi ase Negative (Negative) Urine RBC None (0-2) /hpf Urine WBC None (0-5) /hpf Ur Squamous Epith Cells 5-10 H (0-5) Urine Bacteria None (NONE) Hyaline Casts 0-4 H Urine Mucus 1+ Influenza Type A A g (Negative) POC Influenza B Ag (Negative) Imaging Data^: CT Chest: Radiologist's impression: [address] [address] [address] Scan Report Signed Patient: Lit Souza Unit #: [id number] : 1980 Age/Sex: 38 / M ADM Date: 05/22/19 Loc: ER Room/Bed: Attending Dr: Ordering Provider/Ordering MD: Ute Webb DO Date of Service: 05/22/19 Procedure(s): CT angio chest PE prot [id number] Accession Number(s): [id number] Report Number: [id number] PROCEDURE INFORMATION: Exam: CT Angiography Chest With Contrast Exam date and time: 05/22/2019 10:17 AM Age: 38 years old Clinical indication: Shortness of breath; Chest pain; Type not specified; Prior surgery; Surgery date: 1-6 months; Surgery type: Port; Additional info: Dyspnea/renal ca/pleuritic cp TECHNIQUE: Imaging protocol: Computed tomographic angiography of the chest with intravenous contrast. 3D rendering: MIP and/or 3D reconstructed images were created by the technologist. Total DLP: 658.52 mGy-cm Radiation optimization: All CT scans at this facility use at least one of these dose optimization techniques: automated exposure control; mA and/or kV adjustment per patient size (includes targeted exams where dose is matched to clinical indication); or iterative reconstruction. Contrast material: Omnipaque 350; Contrast volume: 95 ml; Contrast route: IV; COMPARISON: CT chest w con* [id number] 08/25/2017 11:[address] abdomen pelvis w con* [id number] 05/14/2019 2:16:14 PM FINDINGS: Tubes, catheters and devices: The RIGHT internal jugular venous portacatheter tip is in the mid SVC. Pulmonary arteries: Normal. No pulmonary emboli. Aorta: Unremarkable. No aortic aneurysm. No aortic dissection. Thyroid: The bilateral thyroid lobes are unremarkable. Lungs: Occluded left lower lobe bronchus. Left lower lobe medial and posterior basilar segment consolidation. Endobronchial mucous plugging of the right lower lobe posterior basilar segment. RIGHT middle and lower lobe, left upper lobe calcified pulmonary parenchymal granulomas. Pleural space: Unremarkable. No pneumothorax. No pleural effusion. Heart: Normal. No pericardial effusion. Mediastinum: Subcarinal and right hilar granulomatous kelley calcifications are present. Liver: Left and right lobe intrahepatic masses, stable. Mild geographic hypoattenuation of the right lobe of the liver is present consistent with hepatic steatosis. Adrenals: Soft tissue mass right adrenal fossa appears comparable to prior chest CT study. Kidneys and ureters: Additional soft tissue mass right renal fossa partially imaged, comparable to prior CT abdomen study. Stomach and bowel: Moderate ascending colonic wall thickening. Intraperitoneal space: Subhepatic/omental mass, stable. Lymph nodes: Left pulmonary hilar lymph nodes measuring up to 9.6 mm short axis, previously 8.7 mm. Right pulmonary hilar lymph node measuring 9.4 mm short axis, stable. Left abdominal para-aortic lymphadenopathy, stable. Bones/joints: Healed right posterior 10th rib fracture. Lateral resection right 11th rib. Degenerative disk disease is present at lower thoracic spine disk levels. Soft tissues: Moderate bilateral gynecomastia. Other findings: Cam hepatis mass, stable. CT/CT angio chest PE protcl [id number] IMPRESSION: 1. Occluded left lower lobe bronchus. This could represent bronchial mucus plugging or neoplasia. Bronchoscopy recommended. 2. Left lower lobe medial and posterior basilar segment consolidation (postobstructive). Pneumonitis is difficult to exclude. Clinical correlation is recommended. 3. No pulmonary embolism identified. 4. No thoracic aortic aneurysm or dissection identified. 5. Endobronchial mucous plugging right lower lobe posterior basilar segment. 6. Moderate ascending colonic wall thickening. The finding is consistent with nonspecific colitis. Clinical correlation with the patient's specific symptomatology is recommended. 7. Soft tissue mass right adrenal fossa appears comparable to prior chest CT study. 8. Additional soft tissue mass right renal fossa partially imaged, comparable to prior CT abdomen study. 9. Subhepatic/omental mass, stable. 10. Left abdominal para-aortic lymphadenopathy, stable. 11. Cam hepatis mass, stable. 12. Left and right lobe intrahepatic masses, stable. 13. Fatty infiltration of the liver. Radiation Dose CTDIVOL = (mGy): DLP = 658.52 (mGy-cm) Dictated By: Geoffrey Montes MD Signed By: Geoffrey Montes MD Signed Date/Time: 05/22/19 1245 DD/ 1244 EKG Data^: EKG 1: EKG Interpretation Date: 05/22/19 EKG interpretation time: 10:49 Interpretation: Normal sinus rhythm at 100 low beats a minute, nonspecific ST and T wave changes, normal MT, normal QTC. Discharge Plan Discharge Admit Provider: Ariel Lopez Coding Level of Care Code ED Baler Operator for Chg Fwd Exam Problem Focused The documentation recorded by the Miguel green Kialy, accurately reflects the service I personally performed and the decisions made by Jon lind Eli N
--- NOTE | 2019-05-22 10:11 | CTR_ITS ---
PROCEDURE INFORMATION: Exam: CT Angiography Chest With Contrast Exam date and time: 05/22/2019 10:17 AM Age: 38 years old Clinical indication: Shortness of breath; Chest pain; Type not specified; Prior surgery; Surgery date: 1-6 months; Surgery type: Port; Additional info: Dyspnea/renal ca/pleuritic cp TECHNIQUE: Imaging protocol: Computed tomographic angiography of the chest with intravenous contrast. 3D rendering: MIP and/or 3D reconstructed images were created by the technologist. Total DLP: 658.52 mGy-cm Radiation optimization: All CT scans at this facility use at least one of these dose optimization techniques: automated exposure control; mA and/or kV adjustment per patient size (includes targeted exams where dose is matched to clinical indication); or iterative reconstruction. Contrast material: Omnipaque 350; Contrast volume: 95 ml; Contrast route: IV; COMPARISON: CT chest w con* [id number] 08/25/2017 11:[address] abdomen pelvis w con* [id number] 05/14/2019 2:16:14 PM FINDINGS: Tubes, catheters and devices: The RIGHT internal jugular venous portacatheter tip is in the mid SVC. Pulmonary arteries: Normal. No pulmonary emboli. Aorta: Unremarkable. No aortic aneurysm. No aortic dissection. Thyroid: The bilateral thyroid lobes are unremarkable. Lungs: Occluded left lower lobe bronchus. Left lower lobe medial and posterior basilar segment consolidation. Endobronchial mucous plugging of the right lower lobe posterior basilar segment. RIGHT middle and lower lobe, left upper lobe calcified pulmonary parenchymal granulomas. Pleural space: Unremarkable. No pneumothorax. No pleural effusion. Heart: Normal. No pericardial effusion. Mediastinum: Subcarinal and right hilar granulomatous kelley calcifications are present. Liver: Left and right lobe intrahepatic masses, stable. Mild geographic hypoattenuation of the right lobe of the liver is present consistent with hepatic steatosis. Adrenals: Soft tissue mass right adrenal fossa appears comparable to prior chest CT study. Kidneys and ureters: Additional soft tissue mass right renal fossa partially imaged, comparable to prior CT abdomen study. Stomach and bowel: Moderate ascending colonic wall thickening. Intraperitoneal space: Subhepatic/omental mass, stable. Lymph nodes: Left pulmonary hilar lymph nodes measuring up to 9.6 mm short axis, previously 8.7 mm. Right pulmonary hilar lymph node measuring 9.4 mm short axis, stable. Left abdominal para-aortic lymphadenopathy, stable. Bones/joints: Healed right posterior 10th rib fracture. Lateral resection right 11th rib. Degenerative disk disease is present at lower thoracic spine disk levels. Soft tissues: Moderate bilateral gynecomastia. Other findings: Cam hepatis mass, stable. CT/CT angio chest PE protcl [id number] IMPRESSION: 1. Occluded left lower lobe bronchus. This could represent bronchial mucus plugging or neoplasia. Bronchoscopy recommended. 2. Left lower lobe medial and posterior basilar segment consolidation (postobstructive). Pneumonitis is difficult to exclude. Clinical correlation is recommended. 3. No pulmonary embolism identified. 4. No thoracic aortic aneurysm or dissection identified. 5. Endobronchial mucous plugging right lower lobe posterior basilar segment. 6. Moderate ascending colonic wall thickening. The finding is consistent with nonspecific colitis. Clinical correlation with the patient's specific symptomatology is recommended. 7. Soft tissue mass right adrenal fossa appears comparable to prior chest CT study. 8. Additional soft tissue mass right renal fossa partially imaged, comparable to prior CT abdomen study. 9. Subhepatic/omental mass, stable. 10. Left abdominal para-aortic lymphadenopathy, stable. 11. Cam hepatis mass, stable. 12. Left and right lobe intrahepatic masses, stable. 13. Fatty infiltration of the liver. Radiation Dose CTDIVOL = (mGy): DLP = 658.52 (mGy-cm)
--- NOTE | 2019-05-22 10:11 | XRR_ITS ---
PROCEDURE INFORMATION: Exam: XR Chest, 1 View Exam date and time: 05/22/2019 11:20 AM Age: 38 years old Clinical indication: Prior surgery; Surgery date: 6+ months; Surgery type: Unsure of all surg HX; Patient HX: PT has a HX of renal CA, in extreme pain, HX from family, cough xseveral days, pain has increased today. TECHNIQUE: Imaging protocol: XR of the chest Views: Frontal portable upright view of the chest. COMPARISON: CR (CHEST, ) 05/14/2019 2:05 PM FINDINGS: Lungs: The lungs are clear bilaterally. The pulmonary vasculature is normal. Pleural space: No pleural effusion. No pneumothorax. Heart/Mediastinum: The heart is normal in size and contour. Mediastinum: Stable. Vasculature: The LEFT internal jugular venous portacatheter tip is in the cavoatrial junction. Bones/joints: Stable. Other findings: The gallbladder is likely surgically absent, with metallic clips overlying the gallbladder fossa. XR/XR chest 1V portable [id number] IMPRESSION: 1. No acute cardiopulmonary abnormality identified. 2. Prior cholecystectomy.
--- NOTE | 2019-05-22 10:12 | ECG_ITS ---
Measurements Intervals [place] Rate: 111 P: 35 ME: 113 QRS: 37 QRSD: 86 T: 61 QT: 390 QTc: 530 SINUS TACHYCARDIA WITH SHORT ME INTERVAL NONSPECIFIC ST & T-WAVE ABNORMALITY ABNORMAL RHYTHM ECG Compared to ECG 02/26/2019 18:34:09 Short ME interval now present T-wave abnormality now present Sinus rhythm no longer present Prolonged QT interval no longer present Electronically Signed On 05-22-2019 18:53:31 SENIOR SAFETY SUPPORT MANAGER by Yvonne Ann M.D. [id number]
[2019-05-22] MEDS: ipratropium-albuterol 3 mL Neb 9 ML INHALATION (10:25)
[2019-05-22 10:30] LABS: ABG PCO2 26.1 mmHg (35-45); ABG PH Result 7.41 (7.35-7.45); Arterial Blood Gas Hematocrit 36.8 % (42-52); Base Excess ABG -6.6 mmol/L (-2.0-2.0); Blood Gas Sample Type Arterial; HCO3 ABG 16.6 mmol/L (22-26); PO2 ABG 58.1 mmHg (80.0-100.0)
[2019-05-22 10:31] LABS: Blood Gas Sample Site Radial, right; Oxygen Device NC
[2019-05-22 10:34] LABS: Basophils % 0.1 %; Eosinophils # 0.3 10^3/uL (0.0-0.8); Eosinophils % 2.1 %; Hematocrit 34.4 % (42.0-52.0); Hemoglobin 11.5 g/dL (11.7-16.6); Lymphocytes # 2.5 10^3/uL (0.8-4.8); Mean Corpuscular HGB Conc 33.4 g/dL (30.0-36.0); Mean Corpuscular Hemoglobin 29.6 pg (28.0-34.0); Mean Corpuscular Volume 88.4 fL (80-94); Mean Platelet Volume 8.8 fL (7.4-10.4); Monocytes # 0.5 10^3/uL (0.2-0.9); Monocytes % 3.9 %; Neutrophils # 9.9 10^3/uL (1.8-7.7); Neutrophils % 74.3 %; Nucleated Red Blood Cells % 0 %; Platelet Count 248 10^3/cmm (130-400); Red Blood Count 3.89 10^6/uL (4.1-5.3); Red Cell Distribution Width 13.7 % (12.1-15.1); White Blood Count 13.4 10^3/uL (4.0-10.0)
[2019-05-22] MEDS: ondansetron 2 mg/ML SDV 2 mL 4 MG IVP ×2 (10:36→20:02)
[2019-05-22] MEDS: hydrocortisone 100 mg/2 mL SDV 150 MG IVP (10:37)
[2019-05-22 10:45] LABS: INR 1.15 (0.8-1.2)
[2019-05-22 10:46] LABS: Partial Thromboplastin Time 34.3 SECONDS (23.9-36.7)
[2019-05-22 10:56] LABS: Alanine Aminotransferase 12 U/L (0-41); Albumin Level 3.6 g/dL (3.5-5.2); Alkaline Phosphatase 194 IU/L (40-130); Anion Gap 19.6 (5-19); Aspartate Amino Transferase 32 U/L (0-40); Blood Urea Nitrogen 17 mg/dL (6-20); Calcium 7.2 mg/dL (8.5-10.5); Carbon Dioxide 16 mmol/L (22-29); Chloride 99 mmol/L (98-107); Globulin 3.6 g/dL (1.3-4.6); Glomerular Filtration Rate 42.2 mL/min (90-130); Glucose 79 mg/dL (74-109); Potassium 3.6 mmol/L (3.5-5.1); Sodium 131 mmol/L (136-145); Total Bilirubin 1.4 mg/dL (0.15-1.2); Total Protein 7.2 g/dL (6.6-8.7)
[2019-05-22 10:58] LABS: Troponin(5th) Baseline 11 ng/mL (0-15)
[2019-05-22] MEDS: iohexol 350 mg/mL 100 mL Btl IV (11:14)
[2019-05-22 11:30] LABS: Influenza A by IFA Negative (Negative); Influenza B by IFA Negative (Negative)
[2019-05-22 12:22] LABS: Magnesium 1.1 mg/dL (1.7-2.3)
[2019-05-22 12:43] LABS: Troponin 5 2HR 13.14 ng/mL (0-15); Troponin 5 2HR Delta 2.14 ABS# (0-10)
[2019-05-22 13:21] LABS: Bilirubin Urine Neg (NEGATIVE); Blood Urine Neg (Negative); Glucose Urine UA Norm (Normal); Ketones Urine Negative (Negative); Leukocyte Esterase Urine Negative (Negative); Nitrate Urine Negative (Negative); Protein Urine Neg (Negative); Specific Gravity, Urine 1.005 (1.005-1.030); Urine Appearance Clear (CLEAR); Urine Color Straw (Yellow); Urobilinogen Urine Norm (Negative); pH Urine 5 (5-7)
[2019-05-22 13:22] LABS: Add Urine Culture? No; Hyaline Casts Urine 0-4; Mucus Urine 1+
[2019-05-22 13:34] LABS: Lactic Sepsis W/Reflex 2.1 mmol/L (0.5-2.2)
--- NOTE | 2019-05-22 13:42 | P.HP_ITS ---
Providers/Chief Complaint Admitting Physician: Ariel Lopez Primary Care Provider: JASS Roblero Chief Complaint: sepsis History of Present Illness Lit Souza is a 38 year old male with metastatic adrenal cancer, status post right adrenalectomy and nephrectomy, with mets to right hip, with recent progression of metastatic disease in the liver, on chronic hydrocortisone due to adrenal insufficiency, was recently assessed in ER due to malaise, found to have influenza due to which was started on Tamiflu. He reportedly got somewhat better, then this morning was having quite a bit of trouble breathing, having diffuse body ache, became less alert, moaning in pain and so was brought for evaluation to emergency department. In ER he is hypotensive, 91/47, with sinus tachycardia of 113, leukocytosis of 13.4, tachypnea of 26, saturating 92% on 4 L nasal cannula, complaining of diffuse ache everywhere, worse all over his back. On my assessment he is mostly moaning, providing minimal history and answering few questions. His and daughter are providing most of the information. They report he has been having minimal cough. Has not had any recurrent fevers. There is been no nausea or vomiting, no diarrhea, no new rash. Due to hypotension with adrenal insufficiency he received 150 mg hydrocortisone. Received 30 mg/kg IV fluid bolus due to suspected septic shock. Lactic acid was 2. Blood cultures ordered. UA is unremarkable. Influenza reassessed and negative. CTA assessed due to hypoxia, without finding of PE, but with occluded left lower lobe bronchus, as well as endobronchial mucous plugging in right lower lobe posterior basilar segment. Concomitant left lower lobe consolidation posterior basilar segment of left lower lobe, suspected postobstructive. Moderate ascending colonic wall thickening possibly due to nonspecific colitis, although he has had no GI symptoms, and per discussion with family does appear to be a chronic finding. Incidentally noted soft tissue mass right adrenal fossa comparable to prior chest CT. Mass of right renal fossa comparable to prior. Subhepatic/omental mass stable. Left abdominal periaortic lymp hadenopathy, mass compressing left alex hepatis vein also seen on prior CT present again. Left and right lobe intrahepatic masses. Incidental fatty infiltration of the liver. Due to concern for postobstructive pneumonia, possibly with metastatic disease imaging was discussed with pulmonology by ER physician, with findings thought to be secondary to pneumonia, endobronchial mucous plugging, without metastatic disease at this time. Treatment of pneumonia, chest physical therapy and pulmonary toilet were recommended. He is started on vancomycin and Primaxin. Blood pressure still soft despite fluid resuscitation, hydrocortisone. Received replacement for hypomagnesemia and hypocalcemia. Continue to monitor in intensive care unit, so far has not yet started on pressors. Review of Systems Const: Reports: malaise and other (Diffuse body ache); Denies: fever, chills or body aches Eyes: Denies: change in vision or eye redness ENMT: Denies: throat pain, oral sores/lesions or ear pain Card: Denies: chest pain, edema, pre-syncope or shortness of breath on exertion Resp: Reports: shortness of breath and non-productive cough; Denies: productive cough, change in phlegm color or coughing up blood GI: Reports: other (Last BM yesterday, normal); Denies: abdominal pain, nausea, vomiting, diarrhea, constipation, blood in stool or black tarry stool : Denies: flank pain, difficulty urinating, urinary frequency or blood in urine Musc: Denies: back pain, joint swelling or redness Skin/Breast: Denies: rash, sores or new lesion Neuro: Denies: headache, numbness in extremities, weakness in extremities, dizziness, confusion or seizure-like activity Endo: Denies: excessive urination or excessive thirst Papo/Lymph: Denies: easy bleeding or purpura All/Imm: Denies: hives, throat swelling or tongue swelling Medications/Allergies Home Medications Medication Instructions Recorded Confirmed Last Taken Type pantoprazole 40 mg PO BID 05/22/19 05/22/19 Unknown History Allergies Allergy/AdvReac Type Severity Reaction Status Date / Time Penicillins Allergy Unknown Verified 05/22/19 13:43 PFSH Acute PFSH: Statuses (acute, chronic, etc) shown below reflect problem list status as previously entered and may not be historically accurate Medical History Adrenal insufficiency (Acute) Cancer (Acute) 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 (Acute) Smoking addiction (Acute) Surgical History History of right nephrectomy (Acute) Hx of cholecystectomy (Acute) Hx of total adrenalectomy (Acute) Family History Grandmother Kidney malignant neoplasm Social History Smoking and tobacco status: current every day smoker cigarettes Packs smoked per day: 1 Alcohol intake: never Substance/Drug Use: current Substance/Drug use type: Marijuana Household members: spouse and children Marital status: Current occupational status: disabled Vitals/I&O/Wt Last Vital Signs Pulse 113 H 05/22/19 10:40 Resp 26 H 05/22/19 10:26 BP 91/47 05/22/19 10:07 Pulse Ox 97 05/22/19 10:48 Weight last 48 hrs Weight 76.204 kg Physical Exam Const: COMMON NORMALS: oriented x3 OTHER: In moderate to severe distress, moaning, providing very limited history, answering limited questions. and daughter at bedside. He is diffusely tender. HENMT: COMMON NORMALS: oropharynx normal Neck/C-Spine: COMMON NORMALS: no JVD Resp: EFFORT & INSPECTION: Yes labored AUSCULTATION: rhonchi Cardio: COMMON NORMALS: no JVD, regular rhythm, S1 normal heart sound, S2 normal heart sound and no murmurs RATE: tachycardic RHYTHM: regular rhythm HEART SOUNDS: S1 normal and S2 normal GI: COMMON NORMALS: normal to inspection, nondistended, normoactive bowel sounds, soft to palpation and non-tender PALPATION: Yes soft and Yes tender (Diffusely, but he is also tender all over) Extremity: COMMON NORMALS: no joint enlargement and no pedal edema Neuro: COMMON NORMALS: oriented x3 and moves all extremities Skin: COMMON NORMALS: no rashes or lesions noted GENERAL SKIN EXAM: no rashes or lesions noted OTHER: Multiple tattoos. Data : 05/22/19 10:24 05/22/19 10:24 Micro: Microbiology 05/22/19 10:27 Blood Culture - Preliminary Blood SPECIMEN COLLECTED 05/22/19 10:24 Blood Culture - Preliminary Blood SPECIMEN COLLECTED A&P Assessment and plan (1) Septic shock: Severe sepsis with leukocytosis of 13.4, sinus tachycardia 113, tachypnea 26, pulmonary source. Some thickening of ascending colon, however, no GI symptoms, and per discussion with family this finding is chronic. Lactic acid is 2.1. Septic shock with hypotension despite initial fluid resuscitation. Continue renally dose Primaxin, vancomycin. Follow blood cultures. Maintain mean arterial pressure 65 mmHg or above. Pressors as needed. Discussed with patient family they are okay with him being admitted currently to our ICU. Continue hydrocortisone. Status: Acute Code(s): A41.9 - Sepsis, unspecified organism; R65.21 - Severe sepsis with septic shock (2) Adrenal insufficiency: Received 150 mg hydrocortisone. Continue 75 mg every 6 hours. Wean down once hemodynamically stable. At home takes 30 mg hydrocortisone daily. Status: Acute Code(s): E27.40 - Unspecified adrenocortical insufficiency (3) Acute kidney injury: At noon 1.8. Recently normal baseline. Hypotensive on presentation, suspect prerenal injury, versus now possibly ATN. Monitor I&O. Maintain blood pressure. reports he occasionally takes ibuprofen, although he denies taking any recently. Status: Acute Code(s): N17.9 - Acute kidney failure, unspecified (4) Postobstructive pneumonia: With occluded left lower lobe bronchus, suspected secondary to mucous plugging per discussion of ER physician with pulmonology, with resultant left lower lobe medial and posterior basilar consolidation, postobstructive pneumonia. Similarly endobronchial mucous plugging right lower lobe posterior basilar segment. No obvious appearance of metastatic disease there. Suspected bacterial superinfection after recent influenza A infection for which he says he completed a course of Tamiflu. Vancomycin, Primaxin. Collect sputum cultures if possible. Chest PT, pulmonary toilet. Status: Acute Code(s): J18.9 - Pneumonia, unspecified organism (5) Hypomagnesemia: Received replacement. Recheck, replace as needed. Status: Acute Code(s): E83.42 - Hypomagnesemia (6) Hypocalcemia: Received replacement, recheck, replace as needed. Status: Acute Code(s): E83.51 - Hypocalcemia (7) Generalized pain: Suspected secondary to adrenal crisis, septic shock, as well as metastatic malignancy. Will check CK. Status: Acute Code(s): R52 - Pain, unspecified (8) 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: 2 weeks ago was seen by oncologist and [place]. It appears due to increase in size of cancer, recently with progression of metastatic disease previous chemotherapy was deemed not effective, and they will be looking into other options. Continue follow-up. Status: Acute Code(s): C79.70 - Secondary malignant neoplasm of unspecified adrenal gland (9) Smoking addiction: Currently smokes about 1 pack/day. We will add nicotine patch, gum for cravings. Discussed smoking cessation once he is more stable. Status: Acute Code(s): F17.200 - Nicotine dependence, unspecified, uncomplicated Additional A&P Information Recent influenza A infection: On 05/14. Had a course of Tamiflu. Noted transient improvement before current episode of illness. Port in left chest Attestations Medical Necessity Statement*: Admission of over 2 midnights is continued for assessment of management of septic shock, postobstructive pneumonia, acute kidney injury, electrolyte normalities, with adrenal insufficiency, in a patient with metastatic malignancy. Critical Care Time: In addition to noncritical issues 25 minutes critical care time spent on assessment and management of severe sepsis and septic shock, adrenal insufficiency, acute kidney injury, electrolyte abnormality. Goals of care discussed, and at this time patient is okay for intubation and other aggressive interventions if needed. Critical Care Time (min): 25 Coding Level of Care Code Acute Density Control Puncher for [facility] Fwd Diagnoses Septic shock A41.9; R65.21 Adrenal insufficiency E27.40 Acute kidney injury N17.9 Postobstructive pneumonia J18.9 Hypomagnesemia E83.42 Hypocalcemia E83.51 Generalized pain R52 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 C79.70 Smoking addiction F17.200
[2019-05-22] MEDS: magnesium sulfate premix 2 GM/50 ML PIGGYBACK IV (13:54)
[2019-05-22 14:13] LABS: Creatine Phosphokinase 85 U/L (39-308)
[2019-05-22 14:52] LABS: Acetaminophen < 5.0 ug/mL (10-30)
[2019-05-22 14:54] LABS: Barbiturates Screen Urine Negative (Negative); Benzodiazepines Screen Urine Negative (Negative); Cocaine Screen Urine Negative (Negative); PCP Screen Urine Negative (Negative); THC Screen Urine Negative (Negative)
[2019-05-22 15:05] LABS: Reflex Lactate Order REFLEX LACTIC ORDERD
[2019-05-22] MEDS: sodium chloride 0.9% 1,000 ML 150 ML IV (15:16)
[2019-05-22] MEDS: enoxaparin 40 mg/0.4 mL Syringe SUBCUT (15:17)
[2019-05-22] MEDS: nicotine 21 mg Patch 1 PATCH TRANSDERMA (15:17)
[2019-05-22] MEDS: hydrocortisone 100 mg/2 mL SDV 75 MG IVP ×2 (15:31→21:36)
[2019-05-22 15:54] LABS: Amphetamines Screen Urine Positive (Negative)
--- NOTE | 2019-05-22 16:12 | ECG_ITS ---
Measurements Intervals [place] Rate: 107 P: [place]: 0 QRS: 52 QRSD: 93 T: 59 QT: 405 QTc: 541 SINUS TACHYCARDIA NONSPECIFIC T-WAVE ABNORMALITY ABNORMAL RHYTHM ECG Compared to ECG 02/26/2019 18:34:09 T-wave abnormality now present Sinus rhythm no longer present Prolonged QT interval no longer present Electronically Signed On 05-22-2019 18:55:57 SWATCH FOLDER by Yvonne Ann M.D. [id number]
--- NOTE | 2019-05-22 16:22 | PC.NURSE ---
Levophed weaned down and turned off at 1600. 1615 vitals are: 102/57, MAP 72, 101 HR, 96%. Will monitor closely.
[2019-05-22] MEDS: morphine 4 mg/mL SDV 1 mL IVP (20:03)
[2019-05-23] VITALS (26 sets, daily range): BP systolic 91–110; BP diastolic 49–72; PULSE 91–104; RESP 17–32; TEMP 36.7–37.3; O2SAT 94–100
[2019-05-23] MEDS: sodium chloride 0.9% 1,000 ML 150 ML IV ×4 (00:02→20:28)
[2019-05-23] MEDS: morphine 4 mg/mL SDV 1 mL IVP ×3 (02:12→19:39)
[2019-05-23 04:43] LABS: Basophils % 0.2 %; Hematocrit 28.5 % (42.0-52.0); Hemoglobin 9.4 g/dL (11.7-16.6); Lymphocytes # 1.5 10^3/uL (0.8-4.8); Lymphocytes % 6.1 %; Mean Corpuscular Hemoglobin 29.7 pg (28.0-34.0); Mean Corpuscular Volume 89.9 fL (80-94); Mean Platelet Volume 9.4 fL (7.4-10.4); Monocytes % 4.2 %; Neutrophils # 20.2 10^3/uL (1.8-7.7); Neutrophils % 84.7 %; Nucleated Red Blood Cells % 0 %; Platelet Count 210 10^3/cmm (130-400); Red Blood Count 3.17 10^6/uL (4.1-5.3); Red Cell Distribution Width 14.2 % (12.1-15.1); White Blood Count 23.8 10^3/uL (4.0-10.0)
[2019-05-23 05:00] LABS: INR 1.38 (0.8-1.2)
[2019-05-23] MEDS: hydrocortisone 100 mg/2 mL SDV 75 MG IVP ×4 (05:06→22:19)
[2019-05-23 05:10] LABS: Alanine Aminotransferase 19 U/L (0-41); Albumin Level 2.7 g/dL (3.5-5.2); Alkaline Phosphatase 210 IU/L (40-130); Anion Gap 17.2 (5-19); Aspartate Amino Transferase 442 U/L (0-40); Blood Urea Nitrogen 14 mg/dL (6-20); Calcium 6.3 mg/dL (8.5-10.5); Carbon Dioxide 17 mmol/L (22-29); Chloride 104 mmol/L (98-107); Globulin 3.6 g/dL (1.3-4.6); Glomerular Filtration Rate 61.5 mL/min (90-130); Glucose 102 mg/dL (74-109); Magnesium 1.4 mg/dL (1.7-2.3); Potassium 5.2 mmol/L (3.5-5.1); Sodium 133 mmol/L (136-145); Total Bilirubin 1.4 mg/dL (0.15-1.2); Total Protein 6.3 g/dL (6.6-8.7)
--- NOTE | 2019-05-23 06:00 | US_ITS ---
WS: [id number] RIGHT UPPER QUADRANT ULTRASOUND Liver Doppler analysis. HISTORY: Duplex portal vein, mesenteric veins. (Portal vein compress) COMPARISON: CT 05/22/2019 Liver: 15.8 cm in length. Heterogeneous appearance of the liver. There are multiple hypoechoic masses throughout the liver. These masses or adenopathy are hypoechoic but there are some areas of increase d echogenicity also. These are better seen on the CT but the largest of variable echogenicity is in t he caudate lobe measuring 6.0 x 7.4 cm. No bile duct dilatation. Gallbladder: Prior cholecystectomy. CBD: 6.3 mm Pancreas: Normal size and echogenicity. Right kidney: Prior RIGHT nephrectomy. Aorta and IVC: Unremarkable. No ascites. Portal vein is patent with normal monophasic flow. Hepatic veins are also patent. Only very limited e valuation of the hepatic veins. Monophasic flow also within the splenic vein. US/US abdomen limited [id number] IMPRESSION: 1. Prior cholecystectomy. 2. Diffuse hepatic metastasis. 3. Limited evaluation of the portal and hepatic veins. Normal wave flows and p atent veins as visualized.
[2019-05-23] MEDS: ondansetron 2 mg/ML SDV 2 mL 4 MG IVP ×2 (06:40→20:40)
[2019-05-23] MEDS: nicotine 21 mg Patch 1 PATCH TRANSDERMA (09:31)
[2019-05-23] MEDS: magnesium sulfate premix 2 GM/50 ML PIGGYBACK IV (09:31)
[2019-05-23] MEDS: sertraline 50 mg Tablet 25 MG PO (09:32)
[2019-05-23] MEDS: pantoprazole DR 40 mg Tablet PO ×2 (09:32→17:30)
[2019-05-23] MEDS: morphine ER (12 HR) 30 mg tablet PO (09:33)
[2019-05-23] MEDS: enoxaparin 40 mg/0.4 mL Syringe SUBCUT (14:50)
--- NOTE | 2019-05-23 18:14 | PC.RESP ---
Patient given Smoking Cessation information.
--- NOTE | 2019-05-23 19:02 | PM.PN ---
Subjective Subjective: Interval history: Today he is feeling better. He is more alert. This morning denies any pain apart from some discomfort in epigastrium. He denies overdosing with his hydrocodone. Reports that he normally hides his pills since they get stolen. He says that he only has been taking about 1 a day. Reports that other pills are hidden. Does admit to smoking methamphetamine several days ago, regretting his choice, stating I do not know what I was thinking . Vitals/I&O/Wt Last Vital Signs Temp 99.0 F 05/23/19 14:00 Pulse 97 05/23/19 18:00 Resp 17 05/23/19 18:00 BP 109/58 05/23/19 18:00 Pulse Ox 97 05/23/19 18:00 05/23/19 05/23/19 05/23/19 06:59 14:59 22:59 Intake Total 1000 / 2150 1100 / 1100 222 / 1322 Output Total 1200 / 1650 1999 / 1999 Balance -200 / 500 1100 / 1100 -1778 / -678 Weight last 48 hrs Weight 83.461 kg Weight 76.204 kg Physical Exam Const: COMMON NORMALS: oriented x3 OTHER: In moderate to severe distress, moaning, providing very limited history, answering limited questions. and daughter at bedside. He is diffusely tender. HENMT: COMMON NORMALS: oropharynx normal Neck/C-Spine: COMMON NORMALS: no JVD Resp: EFFORT & INSPECTION: Yes labored AUSCULTATION: rhonchi Cardio: COMMON NORMALS: no JVD, regular rhythm, S1 normal heart sound, S2 normal heart sound and no murmurs RATE: tachycardic RHYTHM: regular rhythm HEART SOUNDS: S1 normal and S2 normal GI: COMMON NORMALS: normal to inspection, nondistended, normoactive bowel sounds, soft to palpation and non-tender PALPATION: Yes soft and Yes tender (Diffusely, but he is also tender all over) Extremity: COMMON NORMALS: no joint enlargement and no pedal edema Neuro: COMMON NORMALS: oriented x3 and moves all extremities Skin: COMMON NORMALS: no rashes or lesions noted GENERAL SKIN EXAM: no rashes or lesions noted OTHER: Multiple tattoos. Data : 05/23/19 03:53 05/23/19 03:53 Micro: Microbiology 05/22/19 10:27 Blood Culture - Preliminary Blood NEGATIVE TO DATE 05/22/19 10:24 Blood Culture - Preliminary Blood NEGATIVE TO DATE A&P Assessment and plan (1) Septic shock: Requiring temporary pressor support yesterday, weaned off soon after arrival in the ICU. Blood pressure soft, however, above 60 mmHg mean. Continues on scheduled hydrocortisone. Discussed imaging with pulmonology, mucous plugging too distal for access by bronchoscopy. Continue treatment of pneumonia, chest physical therapy. On review of imaging there is concern for aspiration, which he would be at risk of given his initial encephalopathy, as well as significant doses of morphine and amphetamine use several days ago. At this time continue Primaxin, vancomycin. Continue chest PT. Monitor blood pressures, maintain mean arterial pressure above 65 mmHg. With acute liver injury secondary to hypotension. Due to consideration of hydrocodone use is started on N-acetylcysteine. Status: Acute Code(s): A41.9 - Sepsis, unspecified organism; R65.21 - Severe sepsis with septic shock (2) Adrenal insufficiency: Received 150 mg hydrocortisone. Continue 75 mg every 6 hours. Wean down once hemodynamically stable. At home takes 30 mg hydrocortisone daily. Status: Acute Code(s): E27.40 - Unspecified adrenocortical insufficiency (3) Acute kidney injury: Creatinine today is better, up to 1.3. Suspected secondary to hypotension prior to admission. At noon 1.8. Recently normal baseline. Hypotensive on presentation, suspect prerenal injury, versus now possibly ATN. Monitor I&O. Maintain blood pressure. reports he occasionally takes ibuprofen, although he denies taking any recently. Status: Acute Code(s): N17.9 - Acute kidney failure, unspecified (4) Postobstructive pneumonia: With occluded left lower lobe bronchus, suspected secondary to mucous plugging per discussion of ER physician with pulmonology, with resultant left lower lobe medial and posterior basilar consolidation, postobstructive pneumonia. Similarly endobronchial mucous plugging right lower lobe posterior basilar segment. Per discussion with pulmonology today on review of images this is too distal to axis by bronchoscopy. No obvious appearance of metastatic disease there. Suspected bacterial superinfection after recent influenza A infection for which he says he completed a course of Tamiflu. Vancomycin, Primaxin. Collect sputum cultures if possible. Chest PT, pulmonary toilet. Status: Acute Code(s): J18.9 - Pneumonia, unspecified organism (5) Hypomagnesemia: Received replacement. Replace as needed. Status: Acute Code(s): E83.42 - Hypomagnesemia (6) Hypocalcemia: Received replacement. Replace as needed. Status: Acute Code(s): E83.51 - Hypocalcemia (7) Generalized pain: Suspected secondary to adrenal crisis, septic shock, as well as metastatic malignancy. CK not elevated. 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 It appears due to increase in size of cancer, recently with progression of metastatic disease previous chemotherapy was deemed not effective, and they will be looking into other options. Continue follow-up. Status: Acute Code(s): C79.70 - Secondary malignant neoplasm of unspecified adrenal gland (9) Smoking addiction: Currently smokes about 1 pack/day. We will add nicotine patch, gum for cravings. Discuss smoking cessation once he is more stable. Status: Acute Code(s): F17.200 - Nicotine dependence, unspecified, uncomplicated (10) Hyperkalemia: Mild hyperkalemia today, 5.3. Recheck this evening. Change diet to low potassium. Monitor renal function. This is been improving. Status: Acute Code(s): E87.5 - Hyperkalemia (11) Shock liver: With worsening AST today. INR up to 1.38, worse compared to yesterday. Suspect discharge liver secondary to hypotension on presentation, septic shock, adrenal crisis. Due to him taking chronic hydrocodone at home started on N-acetylcysteine. Today also admitted to smoking methamphetamine several days ago. We will reassess liver parameters. Status: Acute Code(s): K72.00 - Acute and subacute hepatic failure without coma Additional A&P Information Recent influenza A infection: On 05/14. Had a course of Tamiflu. Noted transient improvement before current episode of illness. Port in left chest Methamphetamine abuse: Counseled against further use. Patient verbalized understanding. Monitor for withdrawal symptoms. Attestations Medical Necessity Statement*: Continue admission versus management of septic shock, adrenal crisis, postobstructive pneumonia, acute kidney injury, acute liver injury. 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
[2019-05-23 20:32] LABS: Alanine Aminotransferase 11 U/L (0-41); Albumin Level 2.4 g/dL (3.5-5.2); Alkaline Phosphatase 138 IU/L (40-130); Anion Gap 16.9 (5-19); Aspartate Amino Transferase 109 U/L (0-40); Blood Urea Nitrogen 16 mg/dL (6-20); Calcium 6.1 mg/dL (8.5-10.5); Carbon Dioxide 16 mmol/L (22-29); Chloride 105 mmol/L (98-107); Globulin 3.6 g/dL (1.3-4.6); Glomerular Filtration Rate 74.5 mL/min (90-130); Glucose 162 mg/dL (74-109); Potassium 3.9 mmol/L (3.5-5.1); Sodium 134 mmol/L (136-145); Total Bilirubin 0.6 mg/dL (0.15-1.2)
[2019-05-23 23:46] LABS: Vancomycin Trough 11.6 ug/mL (10-15)
[2019-05-24] VITALS (17 sets, daily range): BP systolic 93–106; BP diastolic 52–73; PULSE 77–92; RESP 12–29; TEMP 36.8–36.9; O2SAT 93–99
[2019-05-24] MEDS: morphine 4 mg/mL SDV 1 mL IVP ×4 (04:16→19:34)
[2019-05-24 05:11] LABS: Basophils % 0.1 %; Hematocrit 24.3 % (42.0-52.0); Lymphocytes # 0.9 10^3/uL (0.8-4.8); Lymphocytes % 5.9 %; Mean Corpuscular HGB Conc 32.9 g/dL (30.0-36.0); Mean Corpuscular Hemoglobin 30.4 pg (28.0-34.0); Mean Corpuscular Volume 92.4 fL (80-94); Mean Platelet Volume 9.6 fL (7.4-10.4); Monocytes # 0.5 10^3/uL (0.2-0.9); Monocytes % 3.1 %; Neutrophils # 13.1 10^3/uL (1.8-7.7); Nucleated Red Blood Cells % 0 %; Platelet Count 139 10^3/cmm (130-400); Red Blood Count 2.63 10^6/uL (4.1-5.3); Red Cell Distribution Width 14.2 % (12.1-15.1)
[2019-05-24] MEDS: hydrocortisone 100 mg/2 mL SDV 75 MG IVP ×4 (05:19→21:48)
[2019-05-24 05:20] LABS: INR 1.47 (0.8-1.2)
[2019-05-24] MEDS: sodium chloride 0.9% 1,000 ML 150 ML IV ×3 (05:20→17:55)
[2019-05-24 05:32] LABS: Alanine Aminotransferase 10 U/L (0-41); Albumin Level 2.2 g/dL (3.5-5.2); Alkaline Phosphatase 134 IU/L (40-130); Anion Gap 14.8 (5-19); Aspartate Amino Transferase 67 U/L (0-40); Blood Urea Nitrogen 12 mg/dL (6-20); Carbon Dioxide 17 mmol/L (22-29); Chloride 105 mmol/L (98-107); Globulin 3.5 g/dL (1.3-4.6); Glomerular Filtration Rate 83.2 mL/min (90-130); Glucose 130 mg/dL (74-109); Potassium 3.8 mmol/L (3.5-5.1); Sodium 133 mmol/L (136-145); Total Bilirubin 0.5 mg/dL (0.15-1.2); Total Protein 5.7 g/dL (6.6-8.7)
[2019-05-24 05:33] LABS: Calcium 5.8 mg/dL (8.5-10.5)
--- NOTE | 2019-05-24 06:20 | PC.NURSE ---
SHIFT SUMMARY PT HAS REMAINED ALERT AND ORIENTATED. PT HAS RECEIVED MORPHINE 2X 4 MG. PT COMPLAINS OF PAIN ALL OVER. PT SEEMED TO REST MOST OF THE NIGHT, RESPIRATIONS EVEN AND UNLABORED. PT HAS HAD ADEQUATE URINE OUTPUT. IV REMAINS PATENT. DR MONTALVO WAS MADE AWARE OF CALCIUM LEVEL THIS MORNING.
[2019-05-24] MEDS: morphine ER (12 HR) 30 mg tablet PO (07:52)
[2019-05-24] MEDS: ondansetron 2 mg/ML SDV 2 mL 4 MG IVP ×3 (07:53→22:02)
[2019-05-24] MEDS: pantoprazole DR 40 mg Tablet PO (08:20)
[2019-05-24] MEDS: sertraline 50 mg Tablet 25 MG PO (08:20)
[2019-05-24] MEDS: nicotine 21 mg Patch 1 PATCH TRANSDERMA (08:20)
--- NOTE | 2019-05-24 13:31 | PM.PN ---
Subjective Subjective: Interval history: Complain of pain again, mostly gastric, but also pain all over. Vitals/I&O/Wt Last Vital Signs Temp 98.2 F 05/24/19 08:00 Pulse 92 05/24/19 12:00 Resp 19 H 05/24/19 12:00 BP 101/66 05/24/19 12:00 Pulse Ox 98 05/24/19 12:00 05/23/19 05/24/19 05/24/19 22:59 06:59 14:59 Intake Total 1562 / 2662 2391.5 / 5053.5 900 / 900 Output Total 1999 1900 / 3900 Balance -438 / 662 491.5 / 1153.5 900 / 900 Weight last 48 hrs Weight 83.461 kg Weight 83.461 kg Weight 83.461 kg Physical Exam Const: COMMON NORMALS: oriented x3 OTHER: Not in distress. Diffuse tenderness. HENMT: COMMON NORMALS: oropharynx normal Neck/C-Spine: COMMON NORMALS: no JVD Resp: EFFORT & INSPECTION: Yes labored AUSCULTATION: rhonchi Cardio: COMMON NORMALS: no JVD, regular rhythm, S1 normal heart sound, S2 normal heart sound and no murmurs RATE: tachycardic RHYTHM: regular rhythm HEART SOUNDS: S1 normal and S2 normal GI: COMMON NORMALS: normal to inspection, nondistended, normoactive bowel sounds and soft to palpation PALPATION: Yes soft and Yes tender (Epigastrium) Extremity: COMMON NORMALS: no joint enlargement and no pedal edema Neuro: COMMON NORMALS: oriented x3 and moves all extremities Skin: COMMON NORMALS: no rashes or lesions noted GENERAL SKIN EXAM: no rashes or lesions noted OTHER: Multiple tattoos. Data : 05/24/19 04:28 05/24/19 04:28 Micro: Microbiology 05/22/19 10:27 Blood Culture - Preliminary Blood NEGATIVE TO DATE 05/22/19 10:24 Blood Culture - Preliminary Blood NEGATIVE TO DATE A&P Assessment and plan (1) Septic shock: Has been off pressors, blood pressure still soft, but proving. Perhaps may be able to wean down hydrocortisone soon. Chest physical therapy was attempted, however, in too much discomfort, so did not write well. Requested flutter valve instead. Continue to encourage cough. On review of imaging there is concern for aspiration, which he would be at risk of given his initial encephalopathy, as well as significant doses of morphine and amphetamine use several days ago. Continue Primaxin, vancomycin. With acute liver injury secondary to hypotension. Due to consideration of hydrocodone use receiving N-acetylcysteine. Status: Acute Code(s): A41.9 - Sepsis, unspecified organism; R65.21 - Severe sepsis with septic shock (2) Adrenal insufficiency: Received 150 mg hydrocortisone. Continue 75 mg every 6 hours. Wean down once hemodynamically stable. At home takes 30 mg hydrocortisone daily. Status: Acute Code(s): E27.40 - Unspecified adrenocortical insufficiency (3) Acute kidney injury: Acute kidney injury resolving. Suspected secondary to hypotension prior to admission. Recently normal baseline. Monitor I&O. Maintain blood pressure. reports he occasionally takes ibuprofen, although he denied taking any recently. Status: Acute Code(s): N17.9 - Acute kidney failure, unspecified (4) Postobstructive pneumonia: With occluded left lower lobe bronchus, suspected secondary to mucous plugging, postobstructive pneumonia. Similarly endobronchial mucous plugging right lower lobe posterior basilar segment. Per discussion with pulmonology on review of images this is too distal to axis by bronchoscopy. No obvious appearance of metastatic disease there. Suspected bacterial superinfection after recent influenza A infection for which he says he completed a course of Tamiflu. Vancomycin, Primaxin. Collect sputum cultures if possible. Did not tolerate vest chest PT. Ordered flutter valve. Status: Acute Code(s): J18.9 - Pneumonia, unspecified organism (5) Hypomagnesemia: Received replacement. Replace as needed. Status: Acute Code(s): E83.42 - Hypomagnesemia (6) Hypocalcemia: Received additional replacement. Level also apparently lowered due to hypoalbuminemia. Doubt TLS. Will check phosphorus. Status: Acute Code(s): E83.51 - Hypocalcemia (7) Generalized pain: Suspected secondary to adrenal crisis, septic shock, as well as metastatic malignancy. We will recheck CK. His pain appears to be focused in epigastrium. Will check lipase, troponin series. 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 It appears due to increase in size of cancer, recently with progression of metastatic disease previous chemotherapy was deemed not effective, and they will be looking into other options. Continue follow-up. Status: Acute Code(s): C79.70 - Secondary malignant neoplasm of unspecified adrenal gland (9) Smoking addiction: Currently smokes about 1 pack/day. We will add nicotine patch, gum for cravings. Discuss smoking cessation once he is more stable. Status: Acute Code(s): F17.200 - Nicotine dependence, unspecified, uncomplicated (10) Hyperkalemia: Resolved. Denies changed to low potassium. Monitor renal function. Status: Acute Code(s): E87.5 - Hyperkalemia (11) Shock liver: Liver parameters improved, however, INR still elevated, and albumin is lower today. Complete N-acetylcysteine infusion due to hydrocodone use at home. Status: Acute Code(s): K72.00 - Acute and subacute hepatic failure without coma Additional A&P Information Recent influenza A infection: On 05/14. Had a course of Tamiflu. Noted transient improvement before current episode of illness. Port in left chest Methamphetamine abuse: Counseled against further use. Patient verbalized understanding. Monitor for withdrawal symptoms. Attestations Medical Necessity Statement*: Continue admission for assessment of adrenal insufficiency, sepsis, pneumonia, shock liver. Coding Level of Care Code Acute Blood Bank Technologist for [facility] Fwd Diagnoses Septic shock A41.9; R65.21 Adrenal insufficiency E27.40 Acute kidney injury N17.9 Postobstructive pneumonia J18.9 Hypomagnesemia E83.42 Hypocalcemia E83.51 Generalized pain R52 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 C79.70 Smoking addiction F17.200 Hyperkalemia E87.5 Shock liver K72.00
[2019-05-24 14:22] LABS: Creatine Phosphokinase 54 U/L (39-308); Lipase 29 U/L (13-60); Phosphorus 2.1 mg/dL (2.5-4.5)
[2019-05-24 14:29] LABS: Troponin(5th) Baseline 6 ng/mL (0-15)
[2019-05-24] MEDS: enoxaparin 40 mg/0.4 mL Syringe SUBCUT (14:46)
[2019-05-24 17:15] LABS: Troponin 5 2HR Delta 0 ABS# (0-10)
--- NOTE | 2019-05-24 19:33 | ECG_ITS ---
Measurements Intervals [place] Rate: 81 P: 37 [place]: 149 QRS: 20 QRSD: 106 T: 85 QT: 400 QTc: 467 SINUS RHYTHM NONSPECIFIC T-WAVE ABNORMALITY Compared to ECG 05/22/2019 12:31:49 Sinus tachycardia no longer present T-wave abnormality still present Electronically Signed On 05-24-2019 16:23:20 [employer] SALES CONSULTANT by Solomon Nunes M.D. [id number]
[2019-05-24 20:28] LABS: Troponin 5 6HR Delta 0 ng/L (0-12)
[2019-05-25] VITALS (19 sets, daily range): BP systolic 90–106; BP diastolic 53–69; PULSE 70–90; RESP 12–20; TEMP 36.4–36.9; O2SAT 93–100
[2019-05-25] MEDS: morphine 4 mg/mL SDV 1 mL IVP ×4 (00:21→19:41)
[2019-05-25] MEDS: sodium chloride 0.9% 1,000 ML 150 ML IV ×3 (00:22→21:03)
[2019-05-25] MEDS: hydrocortisone 100 mg/2 mL SDV 75 MG IVP ×2 (04:10→10:34)
[2019-05-25] MEDS: morphine ER (12 HR) 30 mg tablet PO ×2 (05:27→17:07)
[2019-05-25] MEDS: ondansetron 2 mg/ML SDV 2 mL 4 MG IVP ×3 (05:31→19:42)
--- NOTE | 2019-05-25 06:12 | PC.NURSE ---
SHIFT SUMMARY PT HAS BEEN ALERT AND ORIENTATED. PT LUNGS REMAIN COARSE. PT HAS RECEIVED PAIN MEDS THEY WERE AVAILABLE ALONG WITH [facility]. PT HAS REFUSED TO LET STAFF TURN THEM, PT STATES HE SHIFTS HIS WEIGHT. PT PORT REMAINS FLUSHABLE AND DRAWS BACK. PT HAS NOT HAD ANY OTHER COMPLAINTS, HAS HAD ADEQUATE URINE OUTPUT AND ORAL INTAKE.
[2019-05-25 06:21] LABS: Basophils % 0.2 %; Eosinophils % 0.1 %; Hematocrit 21.8 % (42.0-52.0); Lymphocytes # 1.1 10^3/uL (0.8-4.8); Lymphocytes % 8.9 %; Mean Corpuscular HGB Conc 32.1 g/dL (30.0-36.0); Mean Corpuscular Hemoglobin 29.2 pg (28.0-34.0); Mean Corpuscular Volume 90.8 fL (80-94); Mean Platelet Volume 9.6 fL (7.4-10.4); Monocytes # 0.4 10^3/uL (0.2-0.9); Monocytes % 3.1 %; Neutrophils # 10.1 10^3/uL (1.8-7.7); Neutrophils % 85.5 %; Nucleated Red Blood Cells % 0 %; Platelet Count 160 10^3/cmm (130-400); Red Cell Distribution Width 14.5 % (12.1-15.1); White Blood Count 11.9 10^3/uL (4.0-10.0)
[2019-05-25 06:29] LABS: INR 1.26 (0.8-1.2)
[2019-05-25 06:35] LABS: Alanine Aminotransferase 16 U/L (0-41); Albumin Level 1.9 g/dL (3.5-5.2); Alkaline Phosphatase 244 IU/L (40-130); Anion Gap 12.6 (5-19); Aspartate Amino Transferase 52 U/L (0-40); Blood Urea Nitrogen 10 mg/dL (6-20); Carbon Dioxide 19 mmol/L (22-29); Chloride 112 mmol/L (98-107); Globulin 3.7 g/dL (1.3-4.6); Glomerular Filtration Rate 83.2 mL/min (90-130); Glucose 103 mg/dL (74-109); Potassium 3.6 mmol/L (3.5-5.1); Sodium 140 mmol/L (136-145); Total Bilirubin 0.4 mg/dL (0.15-1.2); Total Protein 5.6 g/dL (6.6-8.7)
[2019-05-25 07:05] LABS: Calcium 5.6 mg/dL (8.5-10.5)
[2019-05-25] MEDS: pantoprazole DR 40 mg Tablet PO ×2 (08:47→17:07)
[2019-05-25] MEDS: nicotine 21 mg Patch 1 PATCH TRANSDERMA (08:47)
[2019-05-25] MEDS: sertraline 50 mg Tablet 25 MG PO (08:47)
--- NOTE | 2019-05-25 13:13 | PC.CHAP ---
Pastoral Care Encounter/Spiritual Assessment Type of Contact [] Declined shared services representative visit [] Patient/Family/Request visit [] Outpatient visit [] Follow-up visit [] Physician referral [] Code/Alert [x] Routine visit [] Staff referral [] Actively dying [] Patient sleeping [] Family support [] [] Out of room [] Palliative care [] [] Receiving care in room [] Pre-surgical visit [] Trauma [] Long length of stay [x] ICU visit [] Other: Relational/Emotional Strength [x] Patient feels connected with others/family/visitors/staff [] Distress [] Loneliness/isolation [] Abandonment Spirituality of Patient [x] Person of Shira [] Attends Druze of their Shira [x] Believes in Prayer [] Reads Bible or Baptism materials [] There are Spiritual issues to be addressed [employer] Operator Interventions [x] Prayer [x] Active listening [x] Non-anxious presence [x] Spiritual/emotional support [] Crisis/trauma care [] Spiritual counseling [] Bereavement support [] Provided bereavement packet [] Provided Bible/devotional materials [] Provided toy/stuffed animal, coloring book to patient or family member [] Completed spiritual assessment [] Provided Communion [] Anointing/[place] [] Salvation [] Other: Impact on Illness or Injury [] Angry [] Fearful [] Anxious [] Often cries [] Exhaustion [] Unable to work [] Unable to attend episcopal [] Unable to walk/stand [] Unable to read [] Unable to drive [] Unable to eat/drink [] Unable to sleep [] Unable to be with family [] Other: Summary The shared services representative visited the patient and prayed for him. Time spent with patient 10 mins.
--- NOTE | 2019-05-25 13:14 | PC.SOCIAL ---
Pg 2 of IMM Pg 2 of IMM was explained to and signed by patient, copy was provided, and form was placed in chart. He verbalized understanding and had no questions.
[2019-05-25] MEDS: enoxaparin 40 mg/0.4 mL Syringe SUBCUT (14:34)
--- NOTE | 2019-05-25 15:29 | P.PN_ITS ---
Subjective Subjective: Interval history: Complaining of some generalized ache. Abdominal pain on the right side, otherwise abdomen feels better. Vitals/I&O/Wt Last Vital Signs Temp 98.2 F 05/25/19 08:00 Pulse 70 05/25/19 14:00 Resp 12 05/25/19 14:34 BP 98/59 05/25/19 14:00 Pulse Ox 100 05/25/19 14:34 05/25/19 05/25/19 05/25/19 06:59 14:59 22:59 Intake Total 1307.5 / 3777.5 1820 / 1820 Output Total 900 / 1750 Balance 407.5 / 2027.5 1820 / 1820 Weight last 48 hrs Weight 83.461 kg Weight 83.461 kg Physical Exam Const: COMMON NORMALS: oriented x3 OTHER: Not in distress. Diffuse tenderness. HENMT: COMMON NORMALS: oropharynx normal Neck/C-Spine: COMMON NORMALS: no JVD Resp: EFFORT & INSPECTION: Yes labored AUSCULTATION: rhonchi Cardio: COMMON NORMALS: no JVD, regular rhythm, S1 normal heart sound, S2 normal heart sound and no murmurs RATE: tachycardic RHYTHM: regular rhythm HEART SOUNDS: S1 normal and S2 normal GI: COMMON NORMALS: normal to inspection, nondistended, normoactive bowel sounds and soft to palpation PALPATION: Yes soft and Yes tender (Epigastrium) Extremity: COMMON NORMALS: no joint enlargement and no pedal edema Neuro: COMMON NORMALS: oriented x3 and moves all extremities Skin: COMMON NORMALS: no rashes or lesions noted GENERAL SKIN EXAM: no rashes or lesions noted OTHER: Multiple tattoos. Data : 05/25/19 05:52 05/25/19 05:52 Micro: Microbiology 05/24/19 18:00 MRSA Culture - Final Nose A&P Assessment and plan (1) Septic shock: Resolving. Still on 25 mg every 6 hours hydrocortisone, blood pressures are better. Will attempt titration, decreased currently down to 50 mg every 6 hours. Continue to reassess. Off pressors. Perhaps may be able to wean down hydrocortisone soon. Continue antibiotics. With acute liver injury secondary to hypotension. Due to consideration of hydrocodone use receiving N-acetylcysteine. If blood pressures remain stable may transfer out of ICU. Status: Acute Code(s): A41.9 - Sepsis, unspecified organism; R65.21 - Severe sepsis with septic shock (2) Adrenal insufficiency: Received 150 mg hydrocortisone. Continue 75 mg every 6 hours. Wean down once hemodynamically stable. At home takes 30 mg hydrocortisone daily. Status: Acute Code(s): E27.40 - Unspecified adrenocortical insufficiency (3) Acute kidney injury: Acute kidney injury resolving. Suspected secondary to hypotension prior to admission. Recently normal baseline. Monitor I&O. Maintain blood pressure. reports he occasionally takes ibuprofen, although he denied taking any recently. Status: Acute Code(s): N17.9 - Acute kidney failure, unspecified (4) Postobstructive pneumonia: Improving. Chest physical therapy was attempted, however, in too much discomfort. Re quested flutter valve instead. Continue to encourage cough. Concern for aspiration, which he would be at risk of given his initial encephalopathy, as well as significant doses of morphine and amphetamine use several days prior to admission. With occluded left lower lobe bronchus, suspected secondary to mucous plugging, postobstructive pneumonia. Similarly endobronchial mucous plugging right lower lobe posterior basilar segment. Per discussion with pulmonology on review of images this is too distal to access by bronchoscopy. No obvious appearance of metastatic disease there. Suspected bacterial superinfection after recent influenza A infection for which he says he completed a course of Tamiflu. Continue Primaxin. MRSA negative by PCR. Will discontinue vancomycin. Collect sputum cultures if possible. Flutter valve. Status: Acute Code(s): J18.9 - Pneumonia, unspecified organism (5) Hypomagnesemia: Received replacement. Replace as needed. Status: Acute Code(s): E83.42 - Hypomagnesemia (6) Hypocalcemia: Received additional replacement. Level also apparently lowered due to hypoalbuminemia. Doubt TLS. Will check phosphorus. Status: Acute Code(s): E83.51 - Hypocalcemia (7) Generalized pain: Suspected secondary to adrenal crisis, septic shock, as well as metastatic malignancy. CK normal. Troponin unremarkable. Lipase is low. Right side abdominal pain suspected secondary to metastatic disease as well as acute liver injury secondary to shock liver. 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 It appears due to increase in size of cancer, recently with progression of metastatic disease previous chemotherapy was deemed not effective, and they will be looking into other options. Continue follow-up. Status: Acute Code(s): C79.70 - Secondary malignant neoplasm of unspecified adrenal gland (9) Smoking addiction: Currently smokes about 1 pack/day. We will add nicotine patch, gum for cravings. Discuss smoking cessation once he is more stable. Status: Acute Code(s): F17.200 - Nicotine dependence, unspecified, uncomplicated (10) Hyperkalemia: Resolved. Denies changed to low potassium. Monitor renal function. Status: Acute Code(s): E87.5 - Hyperkalemia (11) Shock liver: Liver parameters improved, however, INR still elevated, and albumin is lower today. Complete N-acetylcysteine infusion due to hydrocodone use at home. Status: Acute Code(s): K72.00 - Acute and subacute hepatic failure without coma Additional A&P Information Recent influenza A infection: On 05/14. Had a course of Tamiflu. Noted transient improvement before current episode of illness. Port in left chest Methamphetamine abuse: Counseled against further use. Patient verbalized understanding. Monitor for withdrawal symptoms. Attestations Medical Necessity Statement*: Continue admission for assessment management of adrenal insufficiency, aspiration pneumonia. Coding Level of Care Code Acute Dry Cell Battery Assembler for [facility] [facility] Diagnoses Septic shock A41.9; R65.21 Adrenal insufficiency E27.40 Acute kidney injury N17.9 Postobstructive pneumonia J18.9 Hypomagnesemia E83.42 Hypocalcemia E83.51 Generalized pain R52 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 C79.70 Smoking addiction F17.200 Hyperkalemia E87.5 Shock liver K72.00
[2019-05-25] MEDS: hydrocortisone 100 mg/2 mL SDV 50 MG IVP ×2 (17:07→23:09)
[2019-05-26] VITALS (22 sets, daily range): BP systolic 95–111; BP diastolic 57–69; PULSE 78–90; RESP 13–24; TEMP 36.6–37.2; O2SAT 91–98
[2019-05-26] MEDS: morphine 4 mg/mL SDV 1 mL IVP ×5 (04:01→23:47)
[2019-05-26] MEDS: sodium chloride 0.9% 1,000 ML 150 ML IV ×3 (04:16→23:43)
[2019-05-26 04:34] LABS: Basophils % 0.4 %; Eosinophils % 0.1 %; Hematocrit 22.1 % (42.0-52.0); Lymphocytes # 1.6 10^3/uL (0.8-4.8); Lymphocytes % 19.7 %; Mean Corpuscular HGB Conc 31.7 g/dL (30.0-36.0); Mean Corpuscular Hemoglobin 29.2 pg (28.0-34.0); Mean Corpuscular Volume 92.1 fL (80-94); Mean Platelet Volume 9.4 fL (7.4-10.4); Monocytes # 0.5 10^3/uL (0.2-0.9); Monocytes % 5.7 %; Neutrophils % 73.6 %; Nucleated Red Blood Cells % 0 %; Platelet Count 171 10^3/cmm (130-400); Red Cell Distribution Width 14.9 % (12.1-15.1); White Blood Count 8.1 10^3/uL (4.0-10.0)
[2019-05-26] MEDS: hydrocortisone 100 mg/2 mL SDV 50 MG IVP ×3 (04:41→20:12)
[2019-05-26 04:51] LABS: Alanine Aminotransferase 13 U/L (0-41); Albumin Level 1.8 g/dL (3.5-5.2); Alkaline Phosphatase 147 IU/L (40-130); Anion Gap 13.3 (5-19); Aspartate Amino Transferase 25 U/L (0-40); Blood Urea Nitrogen 7 mg/dL (6-20); Carbon Dioxide 20 mmol/L (22-29); Chloride 113 mmol/L (98-107); Globulin 3.6 g/dL (1.3-4.6); Glomerular Filtration Rate 93.9 mL/min (90-130); Glucose 107 mg/dL (74-109); Magnesium 1.5 mg/dL (1.7-2.3); Potassium 3.3 mmol/L (3.5-5.1); Sodium 143 mmol/L (136-145); Total Bilirubin 0.4 mg/dL (0.15-1.2); Total Protein 5.4 g/dL (6.6-8.7)
[2019-05-26 04:53] LABS: Calcium 5.8 mg/dL (8.5-10.5)
[2019-05-26] MEDS: magnesium sulfate premix 2 GM/50 ML PIGGYBACK IV (08:50)
[2019-05-26] MEDS: morphine ER (12 HR) 30 mg tablet PO (08:51)
[2019-05-26] MEDS: pantoprazole DR 40 mg Tablet PO ×2 (08:51→19:16)
[2019-05-26] MEDS: nicotine 21 mg Patch 1 PATCH TRANSDERMA (08:51)
--- NOTE | 2019-05-26 13:23 | PM.PN ---
Subjective Subjective: Interval history: Lit reported he was feeling a little bit better this morning. Still with pain but controlled. Medications: Reviewed: Yes Vitals/I&O/Wt Last Vital Signs Temp 97.9 F 05/26/19 04:00 Pulse 82 05/26/19 12:00 Resp 14 05/26/19 12:00 BP 109/69 05/26/19 12:00 Pulse Ox 95 05/26/19 12:00 05/25/19 05/26/19 05/26/19 22:59 06:59 14:59 Intake Total 1100 / 2920 2200 / 5120 240 / 240 Output Total 900 / 900 1800 / 2700 Balance 200 / 2020 400 / 2420 240 / 240 Weight last 48 hrs Weight 83.461 kg Physical Exam Narrative: EXAM NARRATIVE: General exam is a tired appearing white male Cardiovascular regular rate and rhythm without murmur Lungs clear Abdomen is soft, generalized tenderness. Positive bowel sounds Extremities no cyanosis clubbing or edema Data : 05/26/19 04:20 05/26/19 04:20 Micro: Microbiology 05/24/19 18:00 MRSA Culture - Final Nose A&P Assessment and plan (1) Septic shock: Significantly improved. Currently still on IV hydrocortisone as this may be consistent with adrenal crisis. Currently on Primaxin secondary to concern of pneumonia Received N-acetylcysteine secondary to possible hydrocodone use Status: Acute Code(s): A41.9 - Sepsis, unspecified organism; R65.21 - Severe sepsis with septic shock (2) Adrenal insufficiency: Reduce IV hydrocortisone. Consider transfer out of the ICU Status: Acute Code(s): E27.40 - Unspecified adrenocortical insufficiency (3) Acute kidney injury: Continues to improve Status: Acute Code(s): N17.9 - Acute kidney failure, unspecified (4) Postobstructive pneumonia: Improving. Currently on Primaxin. Recently had influenza, for which he received Tamiflu Status: Acute Code(s): J18.9 - Pneumonia, unspecified organism (5) Hypomagnesemia: Replaced Status: Acute Code(s): E83.42 - Hypomagnesemia (6) Hypocalcemia: Normal when corrected for albumin Status: Acute Code(s): E83.51 - Hypocalcemia (7) Generalized pain: Secondary to his underlying malignancy. This is been chronic when he is on morphine. 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 Will need outpatient oncology follow-up Status: Acute Code(s): C79.70 - Secondary malignant neoplasm of unspecified adrenal gland (9) Smoking addiction: Smoking cessation Status: Acute Code(s): F17.200 - Nicotine dependence, unspecified, uncomplicated (10) Hyperkalemia: Resolved. Mild hypokalemia currently. Status: Acute Code(s): E87.5 - Hyperkalemia (11) Shock liver: Completed N-acetylcysteine secondary to hydrocodone use at home Status: Acute Code(s): K72.00 - Acute and subacute hepatic failure without coma Additional A&P Information Port left chest Methamphetamine use Attestations Medical Necessity Statement*: Needs continued hospitalization for adjustment of medication, continued IV antibiotics secondary to pneumonia. Coding Level of Care Code Acute Manufacturing Engineer Machining for [facility] Diagnoses Septic shock A41.9; R65.21 Adrenal insufficiency E27.40 Acute kidney injury N17.9 Postobstructive pneumonia J18.9 Hypomagnesemia E83.42 Hypocalcemia E83.51 Generalized pain R52 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 C79.70 Smoking addiction F17.200 Hyperkalemia E87.5 Shock liver K72.00
[2019-05-26] MEDS: enoxaparin 40 mg/0.4 mL Syringe SUBCUT (14:42)
[2019-05-26] MEDS: ondansetron 2 mg/ML SDV 2 mL 4 MG IVP (17:59)
--- NOTE | 2019-05-26 18:29 | PC.NURSE ---
Transfer to floor Pt transferred via wheelchair by nurse. Pt oriented to room and call light within reach. All belongings sent with pt.
--- NOTE | 2019-05-26 18:36 | PC.NURSE ---
Prn transfer note Patient arrived via wheelchair from ICU. He denies needs at this time
[2019-05-26] MEDS: LORazepam 1 mg Tablet PO (19:21)
[2019-05-27] VITALS (12 sets, daily range): BP systolic 102–150; BP diastolic 62–80; PULSE 59–84; RESP 16–20; TEMP 36.7–37.2; O2SAT 78–98
[2019-05-27] MEDS: LORazepam 1 mg Tablet PO (02:55)
[2019-05-27] MEDS: hydrocortisone 100 mg/2 mL SDV 50 MG IVP ×2 (03:59→12:19)
[2019-05-27 07:13] LABS: Basophils % 0.5 %; Eosinophils # 0.1 10^3/uL (0.0-0.8); Eosinophils % 0.7 %; Hematocrit 24.1 % (42.0-52.0); Hemoglobin 7.7 g/dL (11.7-16.6); Lymphocytes # 1.9 10^3/uL (0.8-4.8); Lymphocytes % 22.3 %; Mean Corpuscular Hemoglobin 29.1 pg (28.0-34.0); Mean Corpuscular Volume 90.9 fL (80-94); Mean Platelet Volume 9.6 fL (7.4-10.4); Monocytes # 0.8 10^3/uL (0.2-0.9); Monocytes % 9.3 %; Neutrophils # 5.6 10^3/uL (1.8-7.7); Neutrophils % 66.6 %; Nucleated Red Blood Cells % 0 %; Platelet Count 181 10^3/cmm (130-400); Red Blood Count 2.65 10^6/uL (4.1-5.3); Red Cell Distribution Width 14.6 % (12.1-15.1); White Blood Count 8.5 10^3/uL (4.0-10.0)
[2019-05-27 07:30] LABS: Alanine Aminotransferase 10 U/L (0-41); Albumin Level 2.1 g/dL (3.5-5.2); Alkaline Phosphatase 173 IU/L (40-130); Anion Gap 13.2 (5-19); Aspartate Amino Transferase 18 U/L (0-40); Blood Urea Nitrogen 9 mg/dL (6-20); Carbon Dioxide 21 mmol/L (22-29); Chloride 112 mmol/L (98-107); Globulin 3.8 g/dL (1.3-4.6); Glomerular Filtration Rate 93.9 mL/min (90-130); Glucose 95 mg/dL (74-109); Magnesium 1.6 mg/dL (1.7-2.3); Potassium 3.2 mmol/L (3.5-5.1); Sodium 143 mmol/L (136-145); Total Bilirubin 0.3 mg/dL (0.15-1.2); Total Protein 5.9 g/dL (6.6-8.7)
[2019-05-27 07:47] LABS: Calcium 5.8 mg/dL (8.5-10.5); Phosphorus 0.8 mg/dL (2.5-4.5)
[2019-05-27] MEDS: morphine ER (12 HR) 30 mg tablet PO (08:53)
[2019-05-27] MEDS: morphine 4 mg/mL SDV 1 mL IVP ×4 (10:33→23:00)
--- NOTE | 2019-05-27 12:15 | PC.SOCIAL ---
IMM updated Pg 2 of IMM was updated with patient and copy was provided. He verbalized understanding and had no questions. Initialed, dated, and timed copy in chart.
[2019-05-27] MEDS: magnesium sulfate premix 2 GM/50 ML PIGGYBACK IV (12:23)
[2019-05-27] MEDS: ondansetron 2 mg/ML SDV 2 mL 4 MG IVP ×2 (12:26→22:20)
[2019-05-27] MEDS: sodium chloride 0.9% 1,000 ML 150 ML IV ×2 (12:50→23:04)
--- NOTE | 2019-05-27 14:03 | P.PN_ITS ---
Subjective Subjective: Interval history: Lit reports he is doing okay. He still feels pretty weak. Pain is about the same. He is able to tolerate some p.o. Medications: Reviewed: Yes Vitals/I&O/Wt Last Vital Signs Temp 98.5 F 05/27/19 10:25 Pulse 59 L 05/27/19 10:25 Resp 16 05/27/19 10:33 BP 114/75 05/27/19 10:25 Pulse Ox 98 05/27/19 10:33 05/26/19 05/27/19 05/27/19 22:59 06:59 14:59 Intake Total 1640 / 2980 1320 / 4300 120 / 120 Output Total 1900 / 1900 400 / 2300 475 / 475 Balance -260 / 1080 920 / 2000 -355 / -355 Weight last 48 hrs Weight 93.667 kg Weight 83.461 kg Physical Exam Narrative: EXAM NARRATIVE: General exam is a tired appearing white male. He awakens easily and makes conversation Cardiovascular regular rate and rhythm without murmur Lungs clear Abdomen is soft, generalized tenderness. Positive bowel sounds Extremities no cyanosis clubbing or edema Data : 05/27/19 06:46 05/27/19 06:46 Micro: Microbiology 05/22/19 10:27 Blood Culture - Final Blood NO GROWTH AFTER 5 DAYS 05/22/19 10:24 Blood Culture - Final Blood NO GROWTH AFTER 5 DAYS A&P Assessment and plan (1) Septic shock: Significantly improved. Currently still on IV hydrocortisone as this may be consistent with adrenal crisis. Transition to oral hydrocortisone today Currently on Primaxin secondary to concern of pneumonia Received N-acetylcysteine secondary to possible hydrocodone use. Status: Acute Code(s): A41.9 - Sepsis, unspecified organism; R65.21 - Severe sepsis with septic shock (2) Adrenal insufficiency: Improved. Transition to oral hydrocortisone today Status: Acute Code(s): E27.40 - Unspecified adrenocortical insufficiency (3) Acute kidney injury: Resolved Status: Acute Code(s): N17.9 - Acute kidney failure, unspecified (4) Postobstructive pneumonia: Improving. Currently on Primaxin. Recently had influenza, for which he received Tamiflu Status: Acute Code(s): J18.9 - Pneumonia, unspecified organism (5) Hypomagnesemia: Replaced today Status: Acute Code(s): E83.42 - Hypomagnesemia (6) Hypocalcemia: Normal when corrected for albumin Status: Acute Code(s): E83.51 - Hypocalcemia (7) Generalized pain: Secondary to his underlying malignancy. This is been chronic when he is on morphine. 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 Will need outpatient oncology follow-up Status: Acute Code(s): C79.70 - Secondary malignant neoplasm of unspecified adrenal gland (9) Smoking addiction: Smoking cessation Status: Acute Code(s): F17.200 - Nicotine dependence, unspecified, uncomplicated (10) Hyperkalemia: Now hypokalemic. Replace with phosphorus secondary to hypophosphatemia as well y. Status: Acute Code(s): E87.5 - Hyperkalemia (11) Shock liver: Completed N-acetylcysteine secondary to hydrocodone use at home Status: Acute Code(s): K72.00 - Acute and subacute hepatic failure without coma Additional A&P Information Port left chest Methamphetamine use Attestations Medical Necessity Statement*: Needs continued hospitalization for adjustment of medications secondary to adrenal crisis, continued IV antibiotics secondary to sepsis. Coding Level of Care Code Acute Adult School Teacher for g Fwd Diagnoses Septic shock A41.9; R65.21 Adrenal insufficiency E27.40 Acute kidney injury N17.9 Postobstructive pneumonia J18.9 Hypomagnesemia E83.42 Hypocalcemia E83.51 Generalized pain R52 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 C79.70 Smoking addiction F17.200 Hyperkalemia E87.5 Shock liver K72.00
--- NOTE | 2019-05-27 14:10 | PC.NURSE ---
1025: While administering medications and performing rounding, patient states that he fell while in the bathroom around 15 minutes ago. He states that he had went in to use the restroom. He denies any injuries and no injuries noted upon assessment. Patient c/o pain in his back that was present prior to his fall. Patient denies loss of consciousness and states he just got back up and went to bed. This RN performed assessment and checked VS. Dr. Galindo was immediately notified.
[2019-05-27] MEDS: enoxaparin 40 mg/0.4 mL Syringe SUBCUT (14:47)
[2019-05-27] MEDS: hydrocortisone 10 mg Tablet 30 MG PO (17:24)
[2019-05-27] MEDS: pantoprazole DR 40 mg Tablet PO (17:24)
[2019-05-28] VITALS (17 sets, daily range): BP systolic 102–136; BP diastolic 64–88; PULSE 71–85; RESP 14–22; TEMP 36.3–37.1; O2SAT 95–97
[2019-05-28] MEDS: morphine 4 mg/mL SDV 1 mL IVP ×5 (02:55→21:13)
[2019-05-28 07:01] LABS: Basophils % 0.6 %; Eosinophils # 0.2 10^3/uL (0.0-0.8); Eosinophils % 3.4 %; Hematocrit 22.1 % (42.0-52.0); Hemoglobin 7.1 g/dL (11.7-16.6); Lymphocytes # 2.4 10^3/uL (0.8-4.8); Lymphocytes % 35.9 %; Mean Corpuscular HGB Conc 32.1 g/dL (30.0-36.0); Mean Corpuscular Hemoglobin 29.2 pg (28.0-34.0); Mean Corpuscular Volume 90.9 fL (80-94); Mean Platelet Volume 9.6 fL (7.4-10.4); Monocytes # 0.6 10^3/uL (0.2-0.9); Neutrophils # 3.4 10^3/uL (1.8-7.7); Neutrophils % 50.4 %; Nucleated Red Blood Cells % 0 %; Platelet Count 170 10^3/cmm (130-400); Red Blood Count 2.43 10^6/uL (4.1-5.3); Red Cell Distribution Width 14.4 % (12.1-15.1); White Blood Count 6.8 10^3/uL (4.0-10.0)
[2019-05-28 07:07] LABS: Anion Gap 12.1 (5-19); Blood Urea Nitrogen 7 mg/dL (6-20); Carbon Dioxide 23 mmol/L (22-29); Chloride 109 mmol/L (98-107); Glomerular Filtration Rate 93.9 mL/min (90-130); Glucose 81 mg/dL (74-109); Magnesium 1.3 mg/dL (1.7-2.3); Osmolality Calculated 287 mOsm/kg (285-295); Potassium 3.1 mmol/L (3.5-5.1); Sodium 141 mmol/L (136-145)
[2019-05-28 07:16] LABS: Calcium 5.5 mg/dL (8.5-10.5)
[2019-05-28 07:33] LABS: Slide Review Slide Review Perform
[2019-05-28] MEDS: pantoprazole DR 40 mg Tablet PO ×2 (08:20→17:46)
[2019-05-28] MEDS: morphine ER (12 HR) 30 mg tablet PO ×2 (09:37→20:30)
[2019-05-28] MEDS: potassium chloride premix 40 MEQ/100 ML PREMIX 25 MEQ IV ×2 (10:15→14:25)
[2019-05-28] MEDS: magnesium sulfate premix 2 GM/50 ML PIGGYBACK IV (10:15)
[2019-05-28] MEDS: ondansetron 2 mg/ML SDV 2 mL 4 MG IVP ×3 (10:29→23:08)
--- NOTE | 2019-05-28 10:34 | P.PN_ITS ---
Subjective Subjective: Interval history: Lit reports he does feel very weak. He is still a little dizzy, and has difficulty getting around. He reports he has been able to eat a little bit. Medications: Reviewed: Yes Vitals/I&O/Wt Last Vital Signs Temp 98.1 F 05/28/19 07:00 Pulse 79 05/28/19 07:00 Resp 14 05/28/19 09:37 BP 109/70 05/28/19 07:00 Pulse Ox 96 05/28/19 07:00 05/27/19 05/28/19 05/28/19 22:59 06:59 14:59 Intake Total 1429.0909 / 1808.1818 100 / 1908.1818 240 / 240 Output Total 1999 / 2474 1300 / 3775 950 / 950 Balance -570.9091 / -666.8182 -1200 / -1866.8182 -710 / -710 Weight last 48 hrs Weight 126.053 kg Weight 93.667 kg Physical Exam Narrative: EXAM NARRATIVE: General exam no apparent distress, tired appearing Cardiovascular regular rate and rhythm without murmur Lungs clear Abdomen is soft with positive bowel sounds. Pain improved Extremities no cyanosis clubbing or edema Data : 05/28/19 06:29 05/28/19 06:29 Micro: Microbiology 05/22/19 10:27 Blood Culture - Final Blood NO GROWTH AFTER 5 DAYS 05/22/19 10:24 Blood Culture - Final Blood NO GROWTH AFTER 5 DAYS A&P Assessment and plan (1) Septic shock: Significantly improved. Transition to oral hydrocortisone and blood pressure remained stable. Abdominal pain improved. Currently on Primaxin secondary to concern of pneumonia Received N-acetylcysteine secondary to possible hydrocodone use. Status: Acute Code(s): A41.9 - Sepsis, unspecified organism; R65.21 - Severe sepsis with septic shock (2) Adrenal insufficiency: Now on double his usual dose of hydrocortisone Status: Acute Code(s): E27.40 - Unspecified adrenocortical insufficiency (3) Acute kidney injury: Resolved Status: Acute Code(s): N17.9 - Acute kidney failure, unspecified (4) Postobstructive pneumonia: Continue Primaxin Recently had influenza, for which he received Tamiflu Status: Acute Code(s): J18.9 - Pneumonia, unspecified organism (5) Hypomagnesemia: Supplement today Status: Acute Code(s): E83.42 - Hypomagnesemia (6) Hypocalcemia: Low when adjusted for albumin. Supplement today Status: Acute Code(s): E83.51 - Hypocalcemia (7) Generalized pain: Secondary to his underlying malignancy. This is been chronic when he is on morphine. 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 Will need outpatient oncology follow-up Status: Acute Code(s): C79.70 - Secondary malignant neoplasm of unspecified adrenal gland (9) Smoking addiction: Smoking cessation Status: Acute Code(s): F17.200 - Nicotine dependence, unspecified, uncomplicated (10) Hyperkalemia: Now hypokalemic. Versus currently normal and this will not be supplemented today. Status: Acute Code(s): E87.5 - Hyperkalemia (11) Shock liver: Completed N-acetylcysteine secondary to hydrocodone use at home Status: Acute Code(s): K72.00 - Acute and subacute hepatic failure without coma Additional A&P Information Anemia. He is symptomatic with shortness of breath, weakness, dizziness. Hemoglobin has drifted down to 7.1. Will transfuse. Port left chest Methamphetamine use Attestations Medical Necessity Statement*: Due to pneumonia, blood transfusionNeeds continued hospitalization Coding Level of Care Code Acute Chronic Disease Epidemiologist for Chg Fwd Diagnoses Septic shock A41.9; R65.21 Adrenal insufficiency E27.40 Acute kidney injury N17.9 Postobstructive pneumonia J18.9 Hypomagnesemia E83.42 Hypocalcemia E83.51 Generalized pain R52 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 C79.70 Smoking addiction F17.200 Hyperkalemia E87.5 Shock liver K72.00
[2019-05-28] MEDS: hydrocortisone 10 mg Tablet 30 MG PO ×2 (11:14→17:45)
[2019-05-28] MEDS: enoxaparin 40 mg/0.4 mL Syringe SUBCUT (14:24)
[2019-05-28] MEDS: sodium chloride 0.9% 100 ML 50 ML (14:26)
[2019-05-28] MEDS: LORazepam 1 mg Tablet PO (22:24)
[2019-05-29] VITALS (13 sets, daily range): BP systolic 105–137; BP diastolic 60–84; PULSE 70–80; RESP 16–22; TEMP 36.5–37; O2SAT 95–98
[2019-05-29] MEDS: morphine 4 mg/mL SDV 1 mL IVP ×5 (01:23→22:21)
[2019-05-29 06:42] LABS: Basophils % 0.3 %; Eosinophils # 0.3 10^3/uL (0.0-0.8); Eosinophils % 5.3 %; Hematocrit 25.5 % (42.0-52.0); Hemoglobin 8.4 g/dL (11.7-16.6); Lymphocytes % 33.1 %; Mean Corpuscular HGB Conc 32.9 g/dL (30.0-36.0); Mean Corpuscular Hemoglobin 29.6 pg (28.0-34.0); Mean Corpuscular Volume 89.8 fL (80-94); Mean Platelet Volume 9.4 fL (7.4-10.4); Monocytes # 0.5 10^3/uL (0.2-0.9); Monocytes % 7.9 %; Neutrophils # 3.3 10^3/uL (1.8-7.7); Neutrophils % 52.8 %; Nucleated Red Blood Cells % 0 %; Platelet Count 168 10^3/cmm (130-400); Red Blood Count 2.84 10^6/uL (4.1-5.3); Red Cell Distribution Width 14.2 % (12.1-15.1); White Blood Count 6.2 10^3/uL (4.0-10.0)
--- NOTE | 2019-05-29 07:00 | XRR_ITS ---
PROCEDURE INFORMATION: Exam: XR Chest, 1 View Exam date and time: 05/29/2019 6:23 AM Age: 38 years old Clinical indication: Condition or disease; Lung condition and disease; Pneumonia; Other: Not specified; Prior surgery; Surgery date: 6+ months; Surgery type: Port; Additional info: Pneumonia follow up TECHNIQUE: Imaging protocol: XR of the chest Views: 1 view. COMPARISON: CR XR chest 1V portable [id number] 05/22/2019 11:09 AM FINDINGS: Tubes, catheters and devices: Mediport/chest port via the left jugular approach with the tip projecting over the atrium. Lungs: mild opacity in the left retrocardiac region-atelectasis versus infiltrate. Pleural space: Unremarkable. No pleural effusion. No pneumothorax. Heart/Mediastinum: Unremarkable. No cardiomegaly. Bones/joints: Unremarkable. XR/XR chest 1V portable [id number] IMPRESSION: 1. Mediport/chest port via the left jugular approach with the tip projecting over the atrium. 2. Mild opacity in the left retrocardiac region-atelectasis versus infiltrate.
[2019-05-29 07:12] LABS: Alanine Aminotransferase 6 U/L (0-41); Albumin Level 2.1 g/dL (3.5-5.2); Alkaline Phosphatase 195 IU/L (40-130); Anion Gap 13.7 (5-19); Aspartate Amino Transferase 20 U/L (0-40); Blood Urea Nitrogen 9 mg/dL (6-20); Carbon Dioxide 23 mmol/L (22-29); Chloride 107 mmol/L (98-107); Globulin 3.3 g/dL (1.3-4.6); Glomerular Filtration Rate 93.9 mL/min (90-130); Glucose 98 mg/dL (74-109); Magnesium 1.6 mg/dL (1.7-2.3); Potassium 3.7 mmol/L (3.5-5.1); Sodium 140 mmol/L (136-145); Total Bilirubin 0.3 mg/dL (0.15-1.2); Total Protein 5.4 g/dL (6.6-8.7)
[2019-05-29 07:35] LABS: Calcium 5.7 mg/dL (8.5-10.5); Slide Review Slide Review Perform
[2019-05-29] MEDS: pantoprazole DR 40 mg Tablet PO ×2 (09:32→18:29)
[2019-05-29] MEDS: hydrocortisone 10 mg Tablet 30 MG PO ×2 (09:32→18:29)
--- NOTE | 2019-05-29 10:01 | DCPLANNER ---
Pg 2 of IM updated and reviewed with pt. No questions, copy provided.
[2019-05-29] MEDS: sodium chloride 0.9% 1,000 ML 75 ML IV (10:43)
[2019-05-29] MEDS: morphine ER (12 HR) 30 mg tablet PO ×2 (10:43→20:52)
[2019-05-29] MEDS: magnesium sulfate premix 2 GM/50 ML PIGGYBACK IV (12:25)
--- NOTE | 2019-05-29 13:53 | PC.CHAP ---
Pastoral Care Encounter/Spiritual Assessment Type of Contact [] Declined rip machine operator visit [] Patient/Family/Request visit [] Outpatient visit [] Follow-up visit [] Physician referral [] Code/Alert [] Routine visit [] Staff referral [] Actively dying [x] Patient sleeping [] Family support [] [] Out of room [] Palliative care [] [] Receiving care in room [] Pre-surgical visit [] Trauma [] Long length of stay [] ICU visit [] Other: Relational/Emotional Strength [] Patient feels connected with others/family/visitors/staff [] Distress [] Loneliness/isolation [] Abandonment Spirituality of Patient [] Person of Shira [] Attends Episcopal of their Shira [] Believes in Prayer [] Reads Bible or Jew materials [] There are Spiritual issues to be addressed Graphic Editor Interventions [] Prayer [] Active listening [] Non-anxious presence [] Spiritual/emotional support [] Crisis/trauma care [] Spiritual counseling [] Bereavement support [] Provided bereavement packet [] Provided Bible/devotional materials [] Provided toy/stuffed animal, coloring book to patient or family member [] Provided Communion [] Anointing/[place] [] Salvation [] Completed spiritual assessment [] Other: Impact on Illness or Injury [] Angry [] Fearful [] Anxious [] Often cries [] Exhaustion [] Unable to work [] Unable to attend pentecostalism [] Unable to walk/stand [] Unable to read [] Unable to drive [] Unable to eat/drink [] Unable to sleep [] Unable to be with family [] Patient intubated [] Other: Summary pt, was sleeping, will need a follow up visit Time spent with patient 5 min.
--- NOTE | 2019-05-29 14:19 | PM.PN ---
Subjective Subjective: Interval history: Lit reports he feels a little bit better. Does have more energy. Medications: Reviewed: Yes Vitals/I&O/Wt Last Vital Signs Temp 98.6 F 05/29/19 11:24 Pulse 78 05/29/19 11:24 Resp 16 05/29/19 12:22 BP 111/71 05/29/19 11:24 Pulse Ox 97 05/29/19 11:24 05/28/19 05/29/19 05/29/19 22:59 06:59 14:59 Intake Total 1030 / 2070 1100 / 3170 360 / 360 Output Total 950 / 2675 650 / 3325 Balance 80 / -605 450 / -155 360 / 360 Weight last 48 hrs Weight 125.702 kg Weight 126.053 kg Physical Exam Narrative: EXAM NARRATIVE: General exam no apparent distress, tired appearing Cardiovascular regular rate and rhythm without murmur Lungs a few expiratory wheezes Abdomen is soft with positive bowel sounds. Pain improved Extremities no cyanosis clubbing or edema Data : 05/29/19 06:20 05/29/19 06:20 Other data: Chest x-ray showed left retrocardiac infiltrate versus atelectasis. No effusion. A&P Assessment and plan (1) Septic shock: Significantly improved. Now on oral hydrocortisone Abdominal pain improved. Currently on Primaxin secondary to concern of pneumonia Received N-acetylcysteine secondary to possible hydrocodone use. Status: Acute Code(s): A41.9 - Sepsis, unspecified organism; R65.21 - Severe sepsis with septic shock (2) Adrenal insufficiency: Now on double his usual dose of hydrocortisone. Blood pressure stable Status: Acute Code(s): E27.40 - Unspecified adrenocortical insufficiency (3) Acute kidney injury: Resolved Status: Acute Code(s): N17.9 - Acute kidney failure, unspecified (4) Postobstructive pneumonia: Continue Primaxin Recently had influenza, for which he received Tamiflu Status: Acute Code(s): J18.9 - Pneumonia, unspecified organism (5) Hypomagnesemia: Supplement again today Status: Acute Code(s): E83.42 - Hypomagnesemia (6) Hypocalcemia: Low when adjusted for albumin. Supplement today Status: Acute Code(s): E83.51 - Hypocalcemia (7) Generalized pain: Secondary to his underlying malignancy. This is been chronic when he is on morphine. 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 Will need outpatient oncology follow-up Status: Acute Code(s): C79.70 - Secondary malignant neoplasm of unspecified adrenal gland (9) Smoking addiction: Smoking cessation Status: Acute Code(s): F17.200 - Nicotine dependence, unspecified, uncomplicated (10) Hyperkalemia: Following this became hypokalemic. This is now resolved. Status: Acute Code(s): E87.5 - Hyperkalemia (11) Shock liver: Completed N-acetylcysteine secondary to hydrocodone use at home Status: Acute Code(s): K72.00 - Acute and subacute hepatic failure without coma Additional A&P Information Anemia. Hemoglobin now 8.4 posttransfusion. He is asymptomatic. Port left chest Methamphetamine use Possible discharge tomorrow Physical therapy consultation. Attestations Medical Necessity Statement*: Needs continued hospitalization for IV antibiotics secondary to pneumonia. Coding Level of Care Code Acute Seafood Processor for g Fwd Diagnoses Septic shock A41.9; R65.21 Adrenal insufficiency E27.40 Acute kidney injury N17.9 Postobstructive pneumonia J18.9 Hypomagnesemia E83.42 Hypocalcemia E83.51 Generalized pain R52 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 C79.70 Smoking addiction F17.200 Hyperkalemia E87.5 Shock liver K72.00
[2019-05-29] MEDS: enoxaparin 40 mg/0.4 mL Syringe SUBCUT (15:57)
[2019-05-29] MEDS: ondansetron 2 mg/ML SDV 2 mL 4 MG IVP (17:58)
[2019-05-30] VITALS (13 sets, daily range): BP systolic 93–142; BP diastolic 57–76; PULSE 53–72; RESP 16–20; TEMP 36.4–37.1; O2SAT 94–98
[2019-05-30] MEDS: morphine 4 mg/mL SDV 1 mL IVP ×4 (01:51→18:19)
[2019-05-30] MEDS: sodium chloride 0.9% 1,000 ML 75 ML IV ×2 (02:28→14:42)
[2019-05-30] MEDS: LORazepam 1 mg Tablet PO (03:35)
[2019-05-30 04:33] LABS: Basophils % 0.5 %; Eosinophils # 0.3 10^3/uL (0.0-0.8); Eosinophils % 5.4 %; Hematocrit 26.9 % (42.0-52.0); Hemoglobin 8.7 g/dL (11.7-16.6); Lymphocytes # 1.6 10^3/uL (0.8-4.8); Lymphocytes % 25.6 %; Mean Corpuscular HGB Conc 32.3 g/dL (30.0-36.0); Mean Corpuscular Hemoglobin 30.2 pg (28.0-34.0); Mean Corpuscular Volume 93.4 fL (80-94); Mean Platelet Volume 9.7 fL (7.4-10.4); Monocytes # 0.4 10^3/uL (0.2-0.9); Monocytes % 6.8 %; Neutrophils # 3.9 10^3/uL (1.8-7.7); Neutrophils % 61.2 %; Nucleated Red Blood Cells % 0 %; Platelet Count 176 10^3/cmm (130-400); Red Blood Count 2.88 10^6/uL (4.1-5.3); Red Cell Distribution Width 14.5 % (12.1-15.1); White Blood Count 6.3 10^3/uL (4.0-10.0)
[2019-05-30 04:51] LABS: Anion Gap 12.9 (5-19); Blood Urea Nitrogen 8 mg/dL (6-20); Carbon Dioxide 23 mmol/L (22-29); Chloride 103 mmol/L (98-107); Glomerular Filtration Rate 107.6 mL/min (90-130); Glucose 113 mg/dL (74-109); Osmolality Calculated 277 mOsm/kg (285-295); Potassium 3.9 mmol/L (3.5-5.1); Sodium 135 mmol/L (136-145)
[2019-05-30 04:53] LABS: Calcium 5.4 mg/dL (8.5-10.5)
--- NOTE | 2019-05-30 05:09 | PC.NURSE ---
Multiple attempts at education of pain medication this shift. Patient is requesting more pain medication before it is due. Patient BP is low at this time 93/58. Has been notified of pain and requests for something else were made. See Physician notification please. Pain medication is due in another hour, was ordered to hold Morphine d/t low BP reading. Patient is sleeping when making hourly rounding with no outward s/s of pain at those times.
[2019-05-30] MEDS: TRAMadol 50 mg Tablet PO (05:28)
[2019-05-30 05:48] LABS: Slide Review Slide Review Perform
[2019-05-30] MEDS: hydrocortisone 10 mg Tablet 30 MG PO ×2 (07:57→17:39)
[2019-05-30] MEDS: pantoprazole DR 40 mg Tablet PO ×2 (07:57→17:39)
--- NOTE | 2019-05-30 12:30 | PC.CHAP ---
Pastoral Care Encounter/Spiritual Assessment Type of Contact [] Declined sap business objects developer visit [] Patient/Family/Request visit [] Outpatient visit [x] Follow-up visit [] Physician referral [] Code/Alert [] Routine visit [] Staff referral [] Actively dying [] Patient sleeping [] Family support [] [] Out of room [] Palliative care [] [] Receiving care in room [] Pre-surgical visit [] Trauma [] Long length of stay [] ICU visit [x] Other:This was a follow up visit Relational/Emotional Strength [x] Patient feels connected with others/family/visitors/staff [] Distress [] Loneliness/isolation [] Abandonment Spirituality of Patient [] Person of Shira [] Attends Moravian of their Shira [x] Believes in Prayer [] Reads Bible or Moravian materials [] There are Spiritual issues to be addressed Gluing Machine Adjuster Interventions [x] Prayer [x] Active listening [x] Non-anxious presence [x] Spiritual/emotional support [] Crisis/trauma care [] Spiritual counseling [] Bereavement support [] Provided bereavement packet [] Provided Bible/devotional materials [] Provided toy/stuffed animal, coloring book to patient or family member [] Provided Communion [] Anointing/[place] [] Salvation [x] Completed spiritual assessment [] Other: Impact on Illness or Injury [] Angry [] Fearful [] Anxious [] Often cries [] Exhaustion [] Unable to work [] Unable to attend episcopalian [] Unable to walk/stand [] Unable to read [] Unable to drive [] Unable to eat/drink [] Unable to sleep [x] Unable to be with family [] Patient intubated [] Other: Summary Pt stated he was feeling some what better but not great. He wants to go home. Gluing Machine Adjuster Edie Dobson Time spent with patient 15 minutes
--- NOTE | 2019-05-30 13:21 | PM.PN ---
Subjective Subjective: Interval history: Lit reports he is feeling a little bit better. Still very tired. Medications: Reviewed: Yes Vitals/I&O/Wt Last Vital Signs Temp 98.6 F 05/30/19 11:23 Pulse 53 L 05/30/19 11:23 Resp 16 05/30/19 11:43 BP 115/73 05/30/19 11:23 Pulse Ox 95 05/30/19 11:23 05/29/19 05/30/19 05/30/19 22:59 06:59 14:59 Intake Total 1162.5 / 1622.5 527.5 / 2150.0 Output Total 1600 / 1600 250 / 1850 990 / 990 Balance -437.5 / 22.5 277.5 / 300.0 -990 / -990 Weight last 48 hrs Weight 126.144 kg Weight 126.144 kg Weight 125.702 kg Physical Exam Narrative: EXAM NARRATIVE: General exam no apparent distress, tired appearing Cardiovascular regular rate and rhythm without murmur Lungs a few expiratory wheezes Abdomen is soft with positive bowel sounds. Pain improved Extremities no cyanosis clubbing or edema Data : 05/30/19 04:09 05/30/19 04:09 A&P Assessment and plan (1) Septic shock: Significantly improved. Now on oral hydrocortisone Abdominal pain improved. Currently on Primaxin secondary to concern of pneumonia Received N-acetylcysteine secondary to possible hydrocodone use. Status: Acute Code(s): A41.9 - Sepsis, unspecified organism; R65.21 - Severe sepsis with septic shock (2) Adrenal insufficiency: Now on double his usual dose of hydrocortisone. Blood pressure stable Status: Acute Code(s): E27.40 - Unspecified adrenocortical insufficiency (3) Acute kidney injury: Resolved Status: Acute Code(s): N17.9 - Acute kidney failure, unspecified (4) Postobstructive pneumonia: Continue Primaxin Recently had influenza, for which he received Tamiflu Status: Acute Code(s): J18.9 - Pneumonia, unspecified organism (5) Hypomagnesemia: Will place on oral supplementation Status: Acute Code(s): E83.42 - Hypomagnesemia (6) Hypocalcemia: Low when adjusted for albumin. Supplement today and start oral treatment as well. Repeat levels tomorrow. Status: Acute Code(s): E83.51 - Hypocalcemia (7) Generalized pain: Secondary to his underlying malignancy. This is been chronic when he is on morphine. 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 Will need outpatient oncology follow-up Status: Acute Code(s): C79.70 - Secondary malignant neoplasm of unspecified adrenal gland (9) Smoking addiction: Smoking cessation Status: Acute Code(s): F17.200 - Nicotine dependence, unspecified, uncomplicated (10) Hyperkalemia: Following this became hypokalemic. This is now resolved. Status: Acute Code(s): E87.5 - Hyperkalemia (11) Shock liver: Completed N-acetylcysteine secondary to hydrocodone use at home Status: Acute Code(s): K72.00 - Acute and subacute hepatic failure without coma Additional A&P Information Anemia. Hemoglobin now 8.7, now stable Port left chest Methamphetamine use Likely discharge tomorrow Physical therapy consultation. Attestations Medical Necessity Statement*: Needs continued hospital stay for further adjustment of medications to correct calcium. Coding Level of Care Code Acute Paralegal Specialist for Chg Fwd Diagnoses Septic shock A41.9; R65.21 Adrenal insufficiency E27.40 Acute kidney injury N17.9 Postobstructive pneumonia J18.9 Hypomagnesemia E83.42 Hypocalcemia E83.51 Generalized pain R52 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 C79.70 Smoking addiction F17.200 Hyperkalemia E87.5 Shock liver K72.00
[2019-05-30] MEDS: enoxaparin 40 mg/0.4 mL Syringe SUBCUT (14:42)
[2019-05-30] MEDS: calcium carbonate 500 mg Chew Tablet 1000 MG PO ×2 (14:42→21:55)
[2019-05-30] MEDS: oxyCODONE-APAP 5-325 mg Tablet 1 TAB PO ×2 (15:40→21:55)
--- NOTE | 2019-05-30 16:33 | PC.PT ---
PT note: attempted evaluation and exercise instruction x 2. pt not interested, states I get around fine left pt written HEP. no further attempts will be made unless pt requests service. Thank You
[2019-05-30] MEDS: magnesium oxide 400 mg tablet PO (17:39)
[2019-05-31] VITALS (14 sets, daily range): BP systolic 95–138; BP diastolic 57–82; PULSE 57–72; RESP 14–24; TEMP 36.6–36.9; O2SAT 95–99
[2019-05-31] MEDS: morphine 4 mg/mL SDV 1 mL IVP ×5 (01:44→22:41)
[2019-05-31 05:34] LABS: Anion Gap 14.1 (5-19); Blood Urea Nitrogen 8 mg/dL (6-20); Carbon Dioxide 23 mmol/L (22-29); Chloride 106 mmol/L (98-107); Glomerular Filtration Rate 125.5 mL/min (90-130); Glucose 89 mg/dL (74-109); Magnesium 1.3 mg/dL (1.7-2.3); Osmolality Calculated 283 mOsm/kg (285-295); Potassium 4.1 mmol/L (3.5-5.1); Sodium 139 mmol/L (136-145)
[2019-05-31 05:51] LABS: Calcium 5.7 mg/dL (8.5-10.5)
[2019-05-31] MEDS: pantoprazole DR 40 mg Tablet PO ×2 (08:03→18:07)
[2019-05-31] MEDS: hydrocortisone 10 mg Tablet 30 MG PO ×2 (08:03→18:07)
[2019-05-31] MEDS: nicotine 21 mg Patch 1 PATCH TRANSDERMA (08:03)
[2019-05-31] MEDS: magnesium oxide 400 mg tablet PO (08:03)
[2019-05-31] MEDS: calcium carbonate 500 mg Chew Tablet 1000 MG PO (08:03)
[2019-05-31] MEDS: sodium chloride 0.9% 1,000 ML 75 ML IV (08:04)
[2019-05-31] MEDS: magnesium sulfate premix 4 GM/100 ML PREMIX IV (09:25)
[2019-05-31] MEDS: ondansetron 2 mg/ML SDV 2 mL 4 MG IVP ×2 (09:25→18:50)
--- NOTE | 2019-05-31 10:42 | PC.SOCIAL ---
IMM update Pg 2 of IMM was updated with patient and a copy was provided. He verbalized understanding and had no questions. Initialed, dated, and timed copy in chart.
[2019-05-31] MEDS: oxyCODONE-APAP 5-325 mg Tablet 1 TAB PO ×2 (11:14→16:43)
[2019-05-31 11:39] LABS: Ionized Calcium 0.9 mmol/L (1.1-1.4)
[2019-05-31 12:26] LABS: Albumin Level 1.8 g/dL (3.5-5.2); Phosphorus 2.3 mg/dL (2.5-4.5)
[2019-05-31] MEDS: enoxaparin 40 mg/0.4 mL Syringe SUBCUT (14:26)
[2019-05-31] MEDS: calcium carb-vit d 500mg-200unit 1 Tablet 2 EACH PO ×2 (14:26→21:45)
[2019-05-31 15:04] LABS: Parathyroid Hormone 131.1 pg/mL (15-65)
[2019-05-31 15:10] LABS: Calcium 5.5 mg/dL (8.5-10.5)
--- NOTE | 2019-05-31 15:30 | PC.NURSE ---
Reported calcium of 5.[address] Galindo at this time.
--- NOTE | 2019-05-31 16:43 | P.PN_ITS ---
Subjective Subjective: Interval history: Lit reports he feels about the same. Still weak. He is able to eat. Does not feel as dizzy when he gets up. Medications: Reviewed: Yes Vitals/I&O/Wt Last Vital Signs Temp 97.9 F 05/31/19 15:00 Pulse 67 05/31/19 15:00 Resp 14 05/31/19 15:00 BP 107/57 05/31/19 15:00 Pulse Ox 97 05/31/19 15:00 05/31/19 05/31/19 05/31/19 06:59 14:59 22:59 Intake Total 1400 / 3107.5 240 / 240 Output Total 1250 / 3190 2400 / 2400 Balance 150 / -82.5 -2160 / -2160 Weight last 48 hrs Weight 124.783 kg Weight 126.144 kg Weight 126.144 kg Physical Exam Narrative: EXAM NARRATIVE: General exam no apparent distress Cardiovascular regular rate and rhythm without murmur Lungs improved aeration. No wheezes heard today Abdomen is soft with positive bowel sounds. Pain improved Extremities no cyanosis clubbing or edema Data : 05/30/19 04:09 05/31/19 04:05 A&P Assessment and plan (1) Septic shock: Significantly improved. Now on oral hydrocortisone twice his home dose Abdominal pain improved. Currently on Primaxin secondary to concern of pneumonia Received N-acetylcysteine secondary to possible hydrocodone use initially Status: Acute Code(s): A41.9 - Sepsis, unspecified organism; R65.21 - Severe sepsis with septic shock (2) Adrenal insufficiency: Now on double his usual dose of hydrocortisone. Blood pressure stable Status: Acute Code(s): E27.40 - Unspecified adrenocortical insufficiency (3) Acute kidney injury: Resolved Status: Acute Code(s): N17.9 - Acute kidney failure, unspecified (4) Postobstructive pneumonia: Continue Primaxin Recently had influenza, for which he received Tamiflu Status: Acute Code(s): J18.9 - Pneumonia, unspecified organism (5) Hypomagnesemia: On oral supplementation. Additional 4 g of magnesium IV today. Continues to run low Status: Acute Code(s): E83.42 - Hypomagnesemia (6) Hypocalcemia: Still low when adjusted for albumin. Ionized calcium is low as well. Received calcium gluconate this morning. Change to calcium with vitamin D 1000 mg 3 times daily. Hopefully he has enough liver synthetic function to process the IV calcium gluconate . He has no tetany. I have discussed his case with nephrology as well. They will see him and make recommendations. PTH level ordered. Status: Acute Code(s): E83.51 - Hypocalcemia (7) Generalized pain: Secondary to his underlying malignancy. This is been chronic when he is o n morphine. 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 Will need outpatient oncology follow-up Status: Acute Code(s): C79.70 - Secondary malignant neoplasm of unspecified adrenal gland (9) Smoking addiction: Smoking cessation Status: Acute Code(s): F17.200 - Nicotine dependence, unspecified, uncomplicated (10) Hyperkalemia: Following this became hypokalemic. This is now resolved. Status: Acute Code(s): E87.5 - Hyperkalemia (11) Shock liver: Completed N-acetylcysteine secondary to hydrocodone use at home Status: Acute Code(s): K72.00 - Acute and subacute hepatic failure without coma Additional A&P Information Anemia. Hemoglobin has now been stable. Will repeat tomorrow. Port left chest Methamphetamine use Attestations Medical Necessity Statement*: Needs continued hospitalization secondary to significant hypomagnesemia and hypocalcemia. 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
--- NOTE | 2019-05-31 17:40 | P.CONIM_ITS ---
Providers/Reason For Consult Consulting Physican/Specialty*: Nphrology Reason for Consult*: severe electrolyte derangement Attending Physician: Michael Galindo MD Primary Care Provider: JASS Roblero History of Present Illness History of Present Illness Lit Souza is a 38 year old male Thank you for consultation, today I met Lit. He has an unfortunate history, having been diagnosed with metastatic adrenal cancer, status post right adrenalectomy and nephrectomy, with mets to right hip, with recent progression of metastatic disease in the liver, on chronic hydrocortisone due to adrenal insufficiency, diagnosed in 2013. On an oral chemo since then with occasional infusions, although he is uncertain about the nature of these meds. Came in on May 22 with URTI, possible influenza, which has now resolved and he is keen for discharge. No other Sx. Prior to coming to hospital he reports no Vit d supplements. No diarrhea or other GI history. No muscle cramps/twichting. Some leg weakness, chronic in nature. No diuretics exposure. Not much fast food and he and his family members are good cooks. Some leg edema, no other volume assoc Sx. Low phos at 2.3, calcium has been persistently low and hard to replace as has his magnesium levels. Bicarb levels are normal now but during his stay have been low. Hemodynamics are normal. Mild LE edema. Review of Systems General: Reports: 10 or more systems reviewed and unremarkable except in HPI and below Meds/Allergies Home Medications and Allergies Home Medications Medication Instructions Recorded Confirmed Type alprazolam 1 mg PO BID 05/14/19 05/22/19 History hydrocortisone 30 mg PO DAILY 05/14/19 05/22/19 History lorazepam 1 mg PO TID PRN 05/14/19 05/22/19 History mitotane [Lysodren] 2,500 mg PO BID 05/14/19 05/22/19 History morphine 15 mg PO BID 05/14/19 05/22/19 History morphine 30 mg PO BID 05/14/19 05/22/19 History ondansetron 8 mg PO Q12H 05/14/19 05/22/19 History oxycodone-acetaminophen 1 tab PO Q6H PRN 05/14/19 05/22/19 History sertraline 50 mg PO DAILY 05/14/19 05/22/19 History pantoprazole 40 mg PO BID 05/22/19 05/22/19 History Allergies Allergy/AdvReac Type Severity Reaction Status Date / Time Penicillins Allergy Unknown Verified 05/22/19 13:43 Current Medications Current Medications Generic Name Dose Route Start Last Admin Trade Name Freq PRN Reason Stop Dose Admin Calcium Carbonate 2 each 05/31/19 15:00 05/31/19 14:26 Oyster Shell 500mg-Vit D 200unit PO 2 each TID RYAN Administration Enoxaparin Sodium 40 mg 05/22/19 15:00 05/31/19 14:26 Lovenox SUBCUT 40 mg Q24H RYAN Administration Hydrocortisone 30 mg 05/27/19 18:00 05/31/19 08:03 Cortef Tab PO 30 mg BID RYAN Administration Imipenem/Cilastatin Sodium 500 100 mls @ 200 mls/hr 05/24/19 09:15 05/31/19 16:43 mg/ Sodium Chloride IV 200 mls/hr Q6H RYAN Administration Protocol Lorazepam 1 mg 05/29/19 21:49 05/30/19 03:35 Ativan PO 1 mg TID PRN Administration ANXIETY Magnesium Oxide 400 mg 05/30/19 18:00 05/31/19 08:03 Magox PO 400 mg BID RYAN Administration Morphine Sulfate 4 mg 05/29/19 21:49 05/31/19 12:51 Morphine IVP 4 mg Q4H PRN Administration SEVERE PAIN Nicotine 1 patch 05/22/19 14:55 05/31/19 08:03 Nicoderm 21 Mg Patch TRANSDERMA 1 patch DAILY RYAN Administration Ondansetron HCl 4 mg 05/22/19 14:22 05/31/19 09:25 Zofran IVP 4 mg Q6H PRN Administration NAUSEA AND VOMITING Oxycodone/Acetaminophen 1 tab 05/30/19 15:35 05/31/19 16:43 Percocet 5-325 Mg PO 1 tab Q4H PRN Administration MODERATE PAIN Pantoprazole Sodium 40 mg 05/22/19 18:00 05/31/19 08:03 Protonix PO 40 mg BID RYAN Administration PFSH Acute PFSH: Statuses (acute, chronic, etc) shown below reflect problem list status as previously entered and may not be historically accurate Medical History Adrenal insufficiency (Acute) Cancer (Acute) 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 (Acute) Smoking addiction (Acute) Surgical History History of right nephrectomy (Acute) Hx of cholecystectomy (Acute) Hx of total adrenalectomy (Acute) Family History Grandmother Kidney malignant neoplasm Social History Smoking and tobacco status: current every day smoker cigarettes Packs smoked per day: 1 Alcohol intake: never Substance/Drug Use: current Substance/Drug use type: Marijuana Household members: spouse and children Marital status: Current occupational status: disabled Vitals/I&O/Wt Last Vital Signs Temp 97.9 F 05/31/19 15:00 Pulse 67 05/31/19 15:00 Resp 16 05/31/19 16:43 BP 107/57 05/31/19 15:00 Pulse Ox 97 05/31/19 15:00 05/31/19 05/31/19 05/31/19 06:59 14:59 22:59 Intake Total 1400 / 3107.5 340 / 340 Output Total 1250 / 3190 2400 / 2400 Balance 150 / -82.5 -2060 / -2060 Weight last 48 hrs Weight 124.783 kg Weight 126.144 kg Weight 126.144 kg Physical Exam Const: COMMON NORMALS: negative for well nourished (appears thin, cachectic ) GENERAL APPEARANCE: ill appearing and frail appearing Neck/C-Spine: COMMON NORMALS: no JVD Chest: COMMONS NORMALS: inspection of chest normal and palpation of chest normal Resp: COMMON NORMALS: normal respiratory effort and no retractions Cardio: COMMON NORMALS: no JVD and regular rate RATE: regular rate : COMMON NORMALS: Yes no CVA tenderness BLADDER/KIDNEY EXAM: Yes no CVA tenderness Back/Pelvis: COMMON NORMALS: no CVA tenderness and thoracic and lumbar spine normal to inspection Extremity: GENERAL: Yes normal exam except as noted A&P Additional A&P Information 1. HypoCa - Partly due to HypoMg. Mg is required for proper function of PTH. - PTH is appropriately elevated - in all likelihood this is due to deficiency of both Vit D 25-OH and 1,25 OH (ie calcitriol) - Will send vit D profile - Will defer 24 hr urine collection for Calcium (to check for renal wasting) for the time being pending Vit D profile result - calcitriol 0.5 mcg daily - increase Vit D replacement to 10k iu daily 2. HypoMg - His chemo expoure is unclear, but his low levels suggest the possibility of Fanconi's - I will check fractional excretion of magnesium - cont replacement therapy, will double oral replacement - replacement limited by diarrhea 3. Hypophos - being replaced - ok to be discharged from my perspective when levels high enough, in a safe range Consult Attestations Medical Necessity Statement: eval for electrolyte d/o Coding Level of Care Code Acute Grout Machine Operator for Chg Titus
[2019-05-31] MEDS: magnesium oxide 400 mg tablet 800 MG PO (18:07)
[2019-05-31 19:42] LABS: Anion Gap 14.6 (5-19); Blood Urea Nitrogen 6 mg/dL (6-20); Calcium 6.3 mg/dL (8.5-10.5); Carbon Dioxide 23 mmol/L (22-29); Chloride 103 mmol/L (98-107); Glomerular Filtration Rate 125.5 mL/min (90-130); Glucose 122 mg/dL (65-115); Magnesium 1.9 mg/dL (1.7-2.3); Osmolality Calculated 281 mOsm/kg (285-295); Potassium 3.6 mmol/L (3.5-5.1); Sodium 137 mmol/L (136-145)
[2019-05-31 20:01] LABS: 25 Hydroxy Vitamin D 10 ng/mL (30-100)
[2019-06-01] VITALS (8 sets, daily range): BP systolic 98–120; BP diastolic 69–70; PULSE 54–77; RESP 16–24; TEMP 36.7–37.1; O2SAT 94–100
[2019-06-01] MEDS: oxyCODONE-APAP 5-325 mg Tablet 1 TAB PO ×2 (01:17→09:35)
[2019-06-01] MEDS: ondansetron 2 mg/ML SDV 2 mL 4 MG IVP ×2 (01:59→07:34)
[2019-06-01] MEDS: morphine 4 mg/mL SDV 1 mL IVP ×2 (03:50→11:44)
[2019-06-01 05:38] LABS: Basophils % 0.6 %; Eosinophils # 0.3 10^3/uL (0.0-0.8); Eosinophils % 4.8 %; Hematocrit 26.8 % (42.0-52.0); Hemoglobin 8.6 g/dL (11.7-16.6); Lymphocytes # 2.2 10^3/uL (0.8-4.8); Lymphocytes % 35.4 %; Mean Corpuscular HGB Conc 32.1 g/dL (30.0-36.0); Mean Corpuscular Hemoglobin 30.3 pg (28.0-34.0); Mean Corpuscular Volume 94.4 fL (80-94); Mean Platelet Volume 9.7 fL (7.4-10.4); Monocytes # 0.4 10^3/uL (0.2-0.9); Monocytes % 6.5 %; Neutrophils # 3.3 10^3/uL (1.8-7.7); Neutrophils % 52.1 %; Nucleated Red Blood Cells % 0 %; Platelet Count 159 10^3/cmm (130-400); Red Blood Count 2.84 10^6/uL (4.1-5.3); Red Cell Distribution Width 14.6 % (12.1-15.1); White Blood Count 6.3 10^3/uL (4.0-10.0)
[2019-06-01 06:03] LABS: Anion Gap 11.4 (5-19); Blood Urea Nitrogen 10 mg/dL (6-20); Calcium 6.4 mg/dL (8.5-10.5); Carbon Dioxide 25 mmol/L (22-29); Chloride 104 mmol/L (98-107); Glomerular Filtration Rate 107.6 mL/min (90-130); Glucose 85 mg/dL (65-115); Magnesium 1.9 mg/dL (1.7-2.3); Osmolality Calculated 277 mOsm/kg (285-295); Potassium 4.4 mmol/L (3.5-5.1); Sodium 136 mmol/L (136-145)
[2019-06-01 06:09] LABS: Slide Review Slide Review Perform
[2019-06-01] MEDS: hydrocortisone 10 mg Tablet 30 MG PO (09:33)
[2019-06-01] MEDS: magnesium oxide 400 mg tablet 800 MG PO (09:34)
[2019-06-01] MEDS: cholecalciferol (vitamin D3) 5,000 unit Tablet 5000 UNIT PO (09:35)
[2019-06-01] MEDS: pantoprazole DR 40 mg Tablet PO (09:35)
[2019-06-01] MEDS: calcitriol 0.25 mcg Capsule 0.5 MCG PO (09:35)
[2019-06-01] MEDS: calcium carb-vit d 500mg-200unit 1 Tablet 2 EACH PO (09:35)
--- NOTE | 2019-06-01 11:41 | P.DS_ITS ---
Discharge Providers Date of Admission: 05/22/19 13:12 Date of Discharge: Date of Discharge: June 01, 2019 Attending Provider at Admission: Ariel Lopez Attending Provider at Discharge: Michael Galindo MD Primary Care Provider: JASS Roblero Diagnoses at Discharge Discharge Diagnosis (1) Septic shock: Status: Acute Problem details: Resolved (2) Adrenal insufficiency: Status: Acute Problem details: Hydrocortisone taper on discharge (3) Acute kidney injury: Status: Acute Problem details: Resolved (4) Postobstructive pneumonia: Status: Acute Problem details: He has completed his course of antibiotic in the hospital (5) Hypomagnesemia: Status: Acute Problem details: Supplementation (6) Hypocalcemia: Status: Acute Problem details: Calcium supplementation, vitamin D supplementation, calcitriol (7) Generalized pain: Status: Acute Problem details: Unchanged (8) 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 He had recently had influenza. In the emergency department he was requiring oxygen, was hypotensive, and had a pneumonia. Secondary to his adrenal cancer with metastasis and history of prior adrenal insufficiency he was placed on hydrocortisone. Broad-spectrum antibiotics were started. With concern of potential shock liver, acetylcysteine course was given. The rest of his hospital stay was spent in slow recovery. He completed an entire course of Primaxin for his pneumonia while in the hospital. He did have issues with significant hypocalcemia, hypomagnesemia, and hypokalemia. These were addressed with supplementation and nephrology consult was also obtained secondary to his persistently low calcium levels. Vitamin D and calcitriol was also added. By time of his discharge his levels were acceptable. It was thought he could follow-up with his oncologist next week for repeat levels, and adjustment of medication. Physical Exam Narrative: EXAM NARRATIVE: General exam no apparent distress Cardiovascular regular in rhythm Lungs clear Abdomen is soft, generalized tenderness persists secondary to his widespread metastasis. Extremities no cyanosis clubbing or edema Discharge Data Data Completed and Pending: Completed Studies During Hospitalization Category Date Time Status CT angio chest PE protcl [id number] Stat Cat Scan 05/22/19 10:11 Completed XR chest 1V alex ble [id number] Routine Exams 05/29/19 07:00 Completed XR chest 1V alex ble [id number] Stat Exams 05/22/19 10:11 Completed US abdomen limite d [id number] Routine Ultrasound 05/23/19 06:00 Completed Pending at discharge Category Date Time Status Magnesium 24 HR U rine Urgent Lab 05/31/19 17:45 Uncollected Urine Creatinine Routine Lab 05/31/19 17:45 Uncollected Vitamin D 1,25 Di hydroxy Routine Lab 05/31/19 18:12 Received Labs from last 24 hours 06/01/19 06/01/19 05/31/19 05:25 05:25 18:12 WBC 6.3 RBC 2.84 L Hgb 8.6 L Hct 26.8 L MCV 94.4 H MCH 30.3 MCHC 32.1 RDW 14.6 Plt Count 159 MPV 9.7 Neut % (Auto) 52.1 Lymph % (Auto) 35.4 [place] % (Auto) 6.5 Eos % (Auto) 4.8 Baso % (Auto) 0.6 Neut # (Auto) 3.3 Lymph # (Auto) 2.2 [place] # (Auto) 0.4 Eos # (Auto) 0.3 Baso # (Auto) 0.0 Nucleated RBC % (a uto) 0 Nucleated RBCs # 0.0 Sodium 136 137 Potassium 4.4 3.6 Chloride 104 103 Carbon Dioxide 25 23 Anion Gap 11.4 14.6 BUN 10 6 Creatinine 0.8 0.7 GFR Calculation 107.6 125.5 Glucose 85 122 H Calculated Osmolal ity 277 L 281 L Calcium 6.4 L 6.3 L Ionized Calcium Me as Phosphorus Magnesium 1.9 1.9 Albumin 25-OH Vitamin D To neli PTH Intact Calcium (PTH Intac t) 05/31/19 05/31/19 05/31/19 18:12 14:05 11:34 WBC RBC Hgb Hct MCV MCH MCHC RDW Plt Count MPV Neut % (Auto) Lymph % (Auto) [place] % (Auto) Eos % (Auto) Baso % (Auto) Neut # (Auto) Lymph # (Auto) [place] # (Auto) Eos # (Auto) Baso # (Auto) Nucleated RBC % (a uto) Nucleated RBCs # Sodium Potassium Chloride Carbon Dioxide Anion Gap BUN Creatinine GFR Calculation Glucose Calculated Osmolal ity Calcium Ionized Calcium Me as 0.9 L Phosphorus Magnesium Albumin 25-OH Vitamin D To enli 10 L PTH Intact 131.1 H Calcium (PTH Intac t) 5.5 L* 05/31/19 04:05 WBC RBC Hgb Hct MCV MCH MCHC RDW Plt Count MPV Neut % (Auto) Lymph % (Auto) [place] % (Auto) Eos % (Auto) Baso % (Auto) Neut # (Auto) Lymph # (Auto) [place] # (Auto) Eos # (Auto) Baso # (Auto) Nucleated RBC % (a uto) Nucleated RBCs # Sodium 139 Potassium 4.1 Chloride 106 Carbon Dioxide 23 Anion Gap 14.1 BUN 8 Creatinine 0.7 GFR Calculation 125.5 Glucose 89 Calculated Osmolal ity 283 L Calcium 5.7 L* Ionized Calcium Me as Phosphorus 2.3 L Magnesium 1.3 L Albumin 1.8 L 25-OH Vitamin D To neli PTH Intact Calcium (PTH Intac t) Vitals: Last Vital Signs Temp 98.7 F 06/01/19 11:00 Pulse 74 06/01/19 11:00 Resp 20 H 06/01/19 11:00 BP 113/69 06/01/19 11:00 Pulse Ox 98 06/01/19 11:00 Discharge Plan Discharge Patient Disposition: Home Health Service Condition: Stable Prescriptions: New hydrocortisone 10 mg Tablet 30 mg PO BID Qty: 108 RF: 0 calcium carbonate-vitamin D3 [Oyster Shell Calcium-Vit D3] 500 mg(1,250mg) - 200 unit Tablet 2 ea PO TID Qty: 180 RF: 0 cholecalciferol (vitamin D3) 125 mcg (5,000 unit) Tablet 5,000 unit PO DAILY Qty: 30 RF: 0 calcitriol 0.25 mcg Capsule 0.5 mcg PO DAILY Qty: 30 RF: 0 magnesium oxide 400 mg (241.3 mg magnesium) Tablet 800 mg PO BID Qty: 120 RF: 0 Continued pantoprazole 40 mg Tablet,Delayed Release (Dr/Ec) 40 mg PO BID RF: 0 Lysodren 500 mg tablet 2,500 mg PO BID RF: 0 alprazolam 1 mg tablet 1 mg PO BID RF: 0 morphine 30 mg tablet extended release 30 mg PO BID RF: 0 ondansetron 8 mg tablet,disintegrating 8 mg PO Q12H RF: 0 oxycodone-acetaminophen 10-325 mg tablet 1 tab PO Q6H PRN (Reason: Pain) RF: 0 morphine 15 mg tablet extended release 15 mg PO BID RF: 0 hydrocortisone 10 mg tablet 30 mg PO DAILY RF: 0 lorazepam 1 mg tablet 1 mg PO TID PRN (Reason: Nausea) RF: 0 sertraline 50 mg tablet 50 mg PO DAILY RF: 0 Discharge Orders: Discharge Order (Routine); Ordered 06/01/19 Ordered By: Michael Galindo Referrals: [facility] [Outside] Adryan Castillo MD [Staff Physician] - 4-7 days (CBC, BMP, magnesium on follow- up) Discharge Diet: Regular Discharge Activity: Resume usual activity Activity Restrictions/Additional Instructions: Take all medicine as prescribed. Visit with oncology next week for adjustment of medications for magnesium and calcium. He will need a blood test at this appointment. Note the hydrocortisone taper. When you get done with the taper resume 30 mg daily. 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
--- NOTE | 2019-06-01 12:53 | PC.NURSE ---
Per patient request medications phoned to Katty at [facility].
--- NOTE | 2019-06-01 13:40 | P.PN_ITS ---
Subjective Subjective: Interval history: Lit reports he feels about the same. Some nausea this morning. Otherwise he's ok Medications: Reviewed: Yes Vitals/I&O/Wt Last Vital Signs Temp 98.7 F 06/01/19 13:18 Pulse 74 06/01/19 13:18 Resp 16 06/01/19 13:18 BP 113/69 06/01/19 13:18 Pulse Ox 98 06/01/19 13:18 05/31/19 06/01/19 06/01/19 22:59 06:59 14:59 Intake Total 780 / 1120 440 / 1560 480 / 480 Output Total 1600 / 4000 800 / 4800 900 / 900 Balance -820 / -2880 -360 / -3240 -420 / -420 Weight last 48 hrs Weight 89.358 kg Weight 124.783 kg Physical Exam Const: COMMON NORMALS: negative for well nourished (appears thin, cachectic ) GENERAL APPEARANCE: ill appearing and frail appearing Neck/C-Spine: COMMON NORMALS: no JVD Chest: COMMONS NORMALS: inspection of chest normal and palpation of chest normal Resp: COMMON NORMALS: normal respiratory effort and no retractions Cardio: COMMON NORMALS: no JVD and regular rate RATE: regular rate : COMMON NORMALS: Yes no CVA tenderness BLADDER/KIDNEY EXAM: Yes no CVA tenderness Back/Pelvis: COMMON NORMALS: no CVA tenderness and thoracic and lumbar spine normal to inspection Extremity: GENERAL: Yes normal exam except as noted Data : 06/01/19 05:25 06/01/19 05:25 A&P Additional A&P Information 1. HypoCa - Partly due to HypoMg. Mg is required for proper function of PTH. - PTH is appropriately elevated - in all likelihood this is due to deficiency of both Vit D 25-OH and 1,25 OH (ie calcitriol) - calcitriol 0.5 mcg daily - increase Vit D replacement to 10k iu daily 2. HypoMg - His chemo expoure is unclear, but his low levels suggest the possibility of Fanconi's - fractional excretion of magnesium pending and ok to follow as an outpatient - cont replacement therapy, will double oral replacement - replacement limited by diarrhea 3. Hypophos - being replaced - ok to be discharged from my perspective Attestations Medical Necessity Statement*: eval for severe metabolic derangements Coding Level of Care Code Acute Computer System Validation Specialist for Chg Fwd
--- NOTE | 2019-06-01 15:29 | PC.NURSE ---
Discharge meds Change in meds called to [facility] per Dr. Galindo's order. Calcitriol called to madeline gilman, no change in dose, discharge number changed to 7. Calcium Carbonate 1000mg TID with out Vitamin D given instead of [place] Shell Calcium
[2019-06-06 11:06] LABS: Vit D 1,25 (Oh)2, Total 28 pg/mL (18-72); Vit D2 1,25 (Oh)2 <8 pg/mL; Vit D3 1,25 (Oh)2 28 pg/mL
== END 2019-06-01 13:20 | disposition home health service (06) | DRG 871 ==
LOC: ER 11:04 → ICU 13:37 → MEDSURG 05-26 18:18
PROVIDERS: Internal Medicine Nephrology; Admitting Provider Internal Medicine; Emergency Provider Emergency Medicine; Family Provider Nurse Practitioner; PCP Nurse Practitioner; Visit Provider Internal Medicine
DX: A41.9 Sepsis, unspecified organism (principal); R65.21 Severe sepsis with septic shock; J18.9 Pneumonia, unspecified organism; K72.00 Acute and subacute hepatic failure without coma; E27.40 Unspecified adrenocortical insufficiency; N17.9 Acute kidney failure, unspecified; C79.70 Secondary malignant neoplasm of unspecified adrenal gland; G93.40 Encephalopathy, unspecified; E83.42 Hypomagnesemia; E83.51 Hypocalcemia; F17.210 Nicotine dependence, cigarettes, uncomplicated; E87.5 Hyperkalemia
CPT/HCPCS: 12345; 36415; 36430; 36591; 36600; 71045; 71275; 76705; 80048; 80053; 80202; 80307; 81001; 82040; 82306; 82310; 82330; 82550; 82652; 82803; 83605; 83690; 83735; 83970; 84100; 84484; 85025; 85610; 85730; 86850; 86900; 87040; 87641; 87804; 93005; 93976; 94640; 94664; 94669; 96365; 96366; 96372; 96374; 96375; 99283; J0132; J0610; J0743; J1642; J1650; J1720; J2270; J2405; J3370; J3475; J3480; J7030; J7050; J8499; P9016; Q3014; Q9967

== ENCOUNTER 2019-06-10 05:53 | Outpatient (RCR) | payer MEDICARE, SELFPAY ==
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
== END 2019-06-25 23:59 | disposition home or self-care (01) ==
LOC: ONCMED 05:53
PROVIDERS: Family Provider Nurse Practitioner; PCP Nurse Practitioner; Visit Provider Internal Medicine Hematology & Oncology
DX: C74.01 Malignant neoplasm of cortex of right adrenal gland (principal); C79.51 Secondary malignant neoplasm of bone; C78.7 Secondary malignant neoplasm of liver and intrahepatic bile duct; E27.40 Unspecified adrenocortical insufficiency; Z91.128 Patient's intentional underdosing of medication regimen for other reason; F41.9 Anxiety disorder, unspecified; F17.210 Nicotine dependence, cigarettes, uncomplicated; Z79.891 Long term (current) use of opiate analgesic; Z79.899 Other long term (current) drug therapy; Z90.5 Acquired absence of kidney
CPT/HCPCS: 99214

== ENCOUNTER 2019-07-25 06:28 | Outpatient (RCR) | payer MEDICARE, SELFPAY ==
[2019-07-04] MEDS: sodium chloride 0.9% 250 ML 999 ML IV (08:49)
[2019-07-04 08:58] LABS: Basophils % 0.6 %; Eosinophils % 15.3 %; Hematocrit 31.4 % (42.0-52.0); Lymphocytes # 2.9 10^3/uL (0.8-4.8); Mean Corpuscular HGB Conc 31.8 g/dL (30.0-36.0); Mean Corpuscular Hemoglobin 29.9 pg (28.0-34.0); Mean Platelet Volume 9.1 fL (7.4-10.4); Monocytes # 0.6 10^3/uL (0.2-0.9); Monocytes % 8.6 %; Neutrophils # 2.1 10^3/uL (1.8-7.7); Neutrophils % 31.3 %; Nucleated Red Blood Cells % 0 %; Platelet Count 247 10^3/cmm (130-400); Red Blood Count 3.34 10^6/uL (4.1-5.3); Red Cell Distribution Width 14.4 % (12.1-15.1); White Blood Count 6.5 10^3/uL (4.0-10.0)
[2019-07-04 09:10] LABS: Alanine Aminotransferase 8 U/L (0-41); Albumin Level 3.1 g/dL (3.5-5.2); Alkaline Phosphatase 226 IU/L (40-130); Anion Gap 13.8 (5-19); Aspartate Amino Transferase 19 U/L (0-40); Blood Urea Nitrogen 11 mg/dL (6-20); Calcium 8.7 mg/dL (8.5-10.5); Carbon Dioxide 22 mmol/L (22-29); Chloride 103 mmol/L (98-107); Glomerular Filtration Rate 93.9 mL/min (90-130); Glucose 97 mg/dL (65-115); Osmolality Calculated 276 mOsm/kg (285-295); Potassium 3.8 mmol/L (3.5-5.1); Sodium 135 mmol/L (136-145); Total Bilirubin 0.3 mg/dL (0.15-1.2); Total Protein 7.1 g/dL (6.6-8.7)
[2019-07-04 09:47] LABS: Slide Review Slide Review Perform
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
[2019-07-04] MEDS: FUROsemide 10 mg/mL SDV 2mL 20 MG IV (13:56)
[2019-07-04] MEDS: sodium chlor 0.9% + KCl 20 mEq 20 MEQ/1,000 ML BAG 1000 MEQ IV (13:58)
[2019-07-05] MEDS: prochlorperazine 10 mg Tablet PO (10:48)
[2019-07-05] MEDS: sodium chloride 0.9% 250 ML 999 ML IV (10:48)
[2019-07-06] MEDS: sodium chloride 0.9% 250 ML 75 ML IV (10:15)
[2019-07-06] MEDS: prochlorperazine 10 mg Tablet PO (10:15)
[2019-07-06] MEDS: denosumab 120 mg SDV SUBCUT (11:41)
== END 2019-07-26 23:59 | disposition home or self-care (01) ==
LOC: ONCMED 06:28
PROVIDERS: Nurse Practitioner; Absent Provider Internal Medicine Hematology & Oncology; Family Provider Nurse Practitioner; PCP Nurse Practitioner; Visit Provider Internal Medicine Hematology & Oncology
DX: Z51.11 Encounter for antineoplastic chemotherapy (principal); C74.01 Malignant neoplasm of cortex of right adrenal gland; C78.7 Secondary malignant neoplasm of liver and intrahepatic bile duct; C79.51 Secondary malignant neoplasm of bone; C78.6 Secondary malignant neoplasm of retroperitoneum and peritoneum; E89.6 Postprocedural adrenocortical (-medullary) hypofunction; G89.29 Other chronic pain; R10.9 Unspecified abdominal pain; F17.210 Nicotine dependence, cigarettes, uncomplicated; Z93.1 Gastrostomy status; Z79.52 Long term (current) use of systemic steroids; Z79.891 Long term (current) use of opiate analgesic; Z79.899 Other long term (current) drug therapy; Z90.5 Acquired absence of kidney
CPT/HCPCS: 80053; 85025; 96366; 96367; 96372; 96375; 96413; 96417; 99214; J0897; J1100; J1453; J1940; J2469; J3475; J3480; J7030; J7040; J7050; J9060; J9181; Q0164

== ENCOUNTER 2019-07-26 13:07 | Emergency (ER) | payer MEDICARE, SELFPAY ==
[2019-07-26 13:12] VITALS: BP 129/81; PULSE 88; RESP 17; TEMP 36.6; O2SAT 98; BMI 20.3
--- NOTE | 2019-07-26 13:26 | ED_ITS ---
HPI - Weakness General: Chief complaint: Weakness Stated complaint: cancer/weakness/cant keep anything down Time Seen by Provider: 07/26/19 13:17 Source: patient Mode of arrival: ambulatory Limitations: no limitations History of Present Illness: HPI Narrative: 38-year-old male history of adrenal carcinoma and is on chemotherapy. Patient states he has had vomiting along with abdominal cramping over the last 2 days. He states he is feeling dehydrated and is unable to keep anything down. He denies any fevers. He denies any worsening or improving factors. Onset (ago): day(s) Migration: none Severity: moderate Relieving factors: none Associated symptoms: Reports nausea and vomiting; Denies chest pain, chills, dysuria, easy bruising, fever(s) or headache(s) Review of Systems Const: Denies: fever, chills, body aches or change in appetite Eyes: Denies: blurry vision or eye discomfort ENMT: Denies: throat pain or dental pain Card: Denies: chest pain Resp: Denies: shortness of breath GI: Reports: nausea and vomiting; Denies: abdominal pain or diarrhea : Denies: painful urination Musc: Denies: neck pain or back pain Skin/Breast: Denies: rash Neuro: Denies: headache Psych: Denies: depression Papo/Lymph: Denies: easy bruising All/Imm: Denies: hives PFSH ED PFSH: Medical History Adrenal insufficiency Hydrocortisone taper on discharge Cancer 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 Unchanged Smoking addiction Counseled Surgical History History of right nephrectomy Hx of cholecystectomy Hx of total adrenalectomy Family History Grandmother Kidney malignant neoplasm Social History Smoking and tobacco status: current every day smoker cigarettes Packs smoked per day: 1 Alcohol intake: never Household members: spouse and children Marital status: Current occupational status: disabled Physical Exam Const: COMMON NORMALS: no apparent distress, oriented x3 and healthy appearing HENMT: COMMON NORMALS: normocephalic and head/scalp atraumatic HEAD & SCALP: normocephalic and atraumatic Eye: COMMON NORMALS: PERRL and EOMs intact bilaterally PUPIL: Yes PERRL Neck/C-Spine: COMMON NORMALS: full ROM and supple Chest: COMMONS NORMALS: inspection of chest normal and palpation of chest normal Resp: COMMON NORMALS: normal respiratory effort, no retractions, no use of accessory muscles and clear to auscultation bilaterally AUSCULTATION: clear to auscultation bilaterally Cardio: COMMON NORMALS: regular rate, regular rhythm and no murmurs RATE: regular rate RHYTHM: regular rhythm GI: COMMON NORMALS: normal to inspection, nondistended, normoactive bowel sounds, soft to palpation, non-tender and no masses PALPATION: Yes soft Extremity: COMMON NORMALS: normal to inspection and full ROM Neuro: COMMON NORMALS: oriented x3, moves all extremities and no focal motor deficits Psych: COMMON NORMALS: mental status grossly normal, thought process normal and cooperative THOUGHT PROCESS: normal thought process Skin: COMMON NORMALS: no rashes or lesions noted and no wounds GENERAL SKIN EXAM: no rashes or lesions noted Course Vital Signs: Vital signs: Vital Signs Temperature 97.9 F 07/26/19 13:12 Pulse Rate 80 07/26/19 15:25 Respiratory Rate 16 07/26/19 15:25 Blood Pressure 124/86 07/26/19 15:25 Pulse Oximetry 97 07/26/19 15:25 MDM - Weakness MDM Narrative: Medical decision making narrative: Patient presents here with vomiting that is chronic in nature. Patient also has abdominal pain that is chronic in nature from his cancer. Abdominal exam here is benign he has no signs of acute surgical abdomen. Patient's lab work and vital signs here are normal. Patient feels improved after pain medicine and nausea meds. Patient is to follow up with primary care doctor in 3 to 5 days return if worsening. Lab Data: Labs: Lab Results 07/26/19 07/26/19 Range/Units 13:45 13:45 WBC 4.6 (4.0-10.0) 10^3/ uL RBC 3.93 L (4.1-5.3) 10^6/u L Hgb 11.6 L (11.7-16.6) g/dL Hct 35.5 L (42.0-52.0) % MCV 90.3 (80-94) fL MCH 29.5 (28.0-34.0) pg MCHC 32.7 (30.0-36.0) g/dL RDW 14.6 (12.1-15.1) % Plt Count 223 (130-400) 10^3/c mm MPV 8.9 (7.4-10.4) fL Neut % (Auto) 15.7 % Lymph % (Auto) 64.8 % Scott % (Auto) 8.0 % Eos % (Auto) 9.8 % Baso % (Auto) 1.5 % Neut # (Auto) 0.7 L* (1.8-7.7) 10^3/u L Lymph # (Auto) 3.0 (0.8-4.8) 10^3/u L Scott # (Auto) 0.4 (0.2-0.9) 10^3/u L Eos # (Auto) 0.5 (0.0-0.8) 10^3/u L Baso # (Auto) 0.1 (0.0-0.1) 10^3/u L Nucleated RBC % (a uto) 0 % Nucleated RBCs # 0.0 /100WBC Sodium 135 L (136-145) mmol/L Potassium 4.0 (3.5-5.1) mmol/L Chloride 102 (98-107) mmol/L Carbon Dioxide 20 L (22-29) mmol/L Anion Gap 17.0 (5-19) BUN 16 (6-20) mg/dL Creatinine 0.7 (0.7-1.2) mg/dL GFR Calculation 125.5 (90-130) mL/min Glucose 114 (65-115) mg/dL Calculated Osmolal ity 277 L (285-295) mOsm/k g Calcium 7.7 L (8.5-10.5) mg/dL Total Bilirubin 0.3 (0.15-1.2) mg/dL AST 22 (0-40) U/L ALT 11 (0-41) U/L Alkaline Phosphata se 226 H (40-130) IU/L Total Protein 7.8 (6.6-8.7) g/dL Albumin 3.6 (3.5-5.2) g/dL Globulin 4.2 (1.3-4.6) g/dL Lipase 55 (13-60) U/L Discharge Plan Discharge Patient Disposition: Home, Self-Care Clinical Impression: Vomiting Qualifiers: Vomiting type: unspecified Vomiting Intractability: non-intractable Nausea presence: with nausea Qualified Code(s): R11.2 - Nausea with vomiting, unspecified Abdominal pain Qualifiers: Abdominal location: generalized Qualified Code(s): R10.84 - Generalized abdominal pain Condition: Stable Prescriptions: [place] 5-325 mg tablet 1 tab PO Q6H PRN (Reason: pain) Qty: 14 RF: 0 Zofran 4 mg tablet 4 mg PO QID PRN (Reason: nausea and vomiting) Qty: 14 RF: 0 No Action cholecalciferol (vitamin D3) 125 mcg (5,000 unit) Tablet 5,000 unit PO DAILY Qty: 30 RF: 0 Lysodren 500 mg tablet 2,500 mg PO BID RF: 0 alprazolam 1 mg tablet 1 mg PO BID RF: 0 morphine 30 mg tablet extended release 30 mg PO BID RF: 0 ondansetron 8 mg tablet,disintegrating 8 mg PO Q12H PRN (Reason: Nausea) RF: 0 oxycodone-acetaminophen 10-325 mg tablet 1 tab PO Q6H PRN (Reason: Pain) RF: 0 morphine 15 mg tablet extended release 15 mg PO BID RF: 0 hydrocortisone 10 mg tablet See Rx Instructions .ROUTE .COMPLEX RF: 0 lorazepam 1 mg tablet 1 mg PO TID PRN (Reason: Nausea) RF: 0 sertraline 50 mg tablet 50 mg PO DAILY RF: 0 Discharge Orders: Discharge Order (Routine); Ordered 07/26/19 Ordered By: Salo Rucker Referrals: Natividad Ying FNP [Primary Care Provider] - Discharge Diet: Advance as tolerated Discharge Activity: Resume usual activity Patient Instructions: Abdominal Pain (ED) Discharge Date/Time: 07/26/19 15:25 Coding Level of Care Code ED Broadcast Systems Engineer for Chg Fwd Exam Comprehensive
[2019-07-26 13:54] LABS: Basophils # 0.1 10^3/uL (0.0-0.1); Basophils % 1.5 %; Eosinophils # 0.5 10^3/uL (0.0-0.8); Eosinophils % 9.8 %; Hematocrit 35.5 % (42.0-52.0); Hemoglobin 11.6 g/dL (11.7-16.6); Lymphocytes % 64.8 %; Mean Corpuscular HGB Conc 32.7 g/dL (30.0-36.0); Mean Corpuscular Hemoglobin 29.5 pg (28.0-34.0); Mean Corpuscular Volume 90.3 fL (80-94); Mean Platelet Volume 8.9 fL (7.4-10.4); Monocytes # 0.4 10^3/uL (0.2-0.9); Neutrophils % 15.7 %; Nucleated Red Blood Cells % 0 %; Platelet Count 223 10^3/cmm (130-400); Red Blood Count 3.93 10^6/uL (4.1-5.3); Red Cell Distribution Width 14.6 % (12.1-15.1); White Blood Count 4.6 10^3/uL (4.0-10.0)
[2019-07-26 14:11] LABS: Alanine Aminotransferase 11 U/L (0-41); Albumin Level 3.6 g/dL (3.5-5.2); Alkaline Phosphatase 226 IU/L (40-130); Aspartate Amino Transferase 22 U/L (0-40); Blood Urea Nitrogen 16 mg/dL (6-20); Calcium 7.7 mg/dL (8.5-10.5); Carbon Dioxide 20 mmol/L (22-29); Chloride 102 mmol/L (98-107); Globulin 4.2 g/dL (1.3-4.6); Glomerular Filtration Rate 125.5 mL/min (90-130); Glucose 114 mg/dL (65-115); Lipase 55 U/L (13-60); Osmolality Calculated 277 mOsm/kg (285-295); Sodium 135 mmol/L (136-145); Total Bilirubin 0.3 mg/dL (0.15-1.2); Total Protein 7.8 g/dL (6.6-8.7)
[2019-07-26] MEDS: sodium chloride 0.9% 1,000 ML 999 ML IV (14:16)
[2019-07-26] MEDS: ondansetron 2 mg/ML SDV 2 mL 4 MG IVP (14:16)
[2019-07-26 14:19] LABS: Slide Review Slide Review Perform
[2019-07-26 14:21] LABS: Neutrophils # 0.7 10^3/uL (1.8-7.7)
[2019-07-26 14:33] VITALS: RESP 16
[2019-07-26] MEDS: morphine 4 mg/mL SDV 1 mL IVP (14:33)
[2019-07-26 15:25] VITALS: BP 124/86; PULSE 80; RESP 16; O2SAT 97
== END 2019-07-26 15:25 | disposition home or self-care (01) ==
PROVIDERS: Emergency Provider Emergency Medicine; Family Provider Nurse Practitioner; PCP Nurse Practitioner
DX: C79.70 Secondary malignant neoplasm of unspecified adrenal gland (principal); R11.2 Nausea with vomiting, unspecified; R10.84 Generalized abdominal pain; E83.51 Hypocalcemia; E83.42 Hypomagnesemia; E27.40 Unspecified adrenocortical insufficiency; F17.200 Nicotine dependence, unspecified, uncomplicated; Z79.891 Long term (current) use of opiate analgesic; Z79.899 Other long term (current) drug therapy
CPT/HCPCS: 12345; 36415; 80053; 83690; 85025; 96361; 96374; 96375; 99282; 99283; J1642; J2270; J2405; J7030

== ENCOUNTER 2019-08-11 08:21 | Outpatient (RCR) | payer MEDICARE, SELFPAY ==
[2019-08-10] MEDS: sodium chloride 0.9% 250 ML 75 ML IV (08:30)
[2019-08-10 08:47] LABS: Basophils # 0.1 10^3/uL (0.0-0.1); Basophils % 0.9 %; Eosinophils # 0.5 10^3/uL (0.0-0.8); Eosinophils % 8.3 %; Hematocrit 39.9 % (42.0-52.0); Hemoglobin 12.9 g/dL (11.7-16.6); Lymphocytes # 3.1 10^3/uL (0.8-4.8); Lymphocytes % 47.1 %; Mean Corpuscular HGB Conc 32.3 g/dL (30.0-36.0); Mean Corpuscular Hemoglobin 29.6 pg (28.0-34.0); Mean Corpuscular Volume 91.5 fL (80-94); Mean Platelet Volume 9.1 fL (7.4-10.4); Monocytes # 0.4 10^3/uL (0.2-0.9); Monocytes % 6.3 %; Neutrophils # 2.4 10^3/uL (1.8-7.7); Neutrophils % 37.1 %; Nucleated Red Blood Cells % 0 %; Platelet Count 294 10^3/cmm (130-400); Red Blood Count 4.36 10^6/uL (4.1-5.3); Red Cell Distribution Width 14.4 % (12.1-15.1); White Blood Count 6.5 10^3/uL (4.0-10.0)
[2019-08-10 09:03] LABS: Alanine Aminotransferase 15 U/L (0-41); Albumin Level 4.1 g/dL (3.5-5.2); Alkaline Phosphatase 270 IU/L (40-130); Anion Gap 16.9 (5-19); Aspartate Amino Transferase 29 U/L (0-40); Blood Urea Nitrogen 17 mg/dL (6-20); Calcium 7.7 mg/dL (8.5-10.5); Carbon Dioxide 20 mmol/L (22-29); Chloride 99 mmol/L (98-107); Globulin 4.2 g/dL (1.3-4.6); Glomerular Filtration Rate 83.2 mL/min (90-130); Glucose 181 mg/dL (65-115); Osmolality Calculated 275 mOsm/kg (285-295); Potassium 3.9 mmol/L (3.5-5.1); Sodium 132 mmol/L (136-145); Total Bilirubin 0.3 mg/dL (0.15-1.2); Total Protein 8.3 g/dL (6.6-8.7)
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
[2019-08-10] MEDS: FUROsemide 10 mg/mL SDV 2mL 20 MG IV (13:37)
[2019-08-10] MEDS: sodium chlor 0.9% + KCl 20 mEq 20 MEQ/1,000 ML BAG 1000 MEQ IV (13:38)
== END 2019-08-11 15:00 | disposition home or self-care (01) ==
LOC: ONCMED 08:21
PROVIDERS: Family Provider Nurse Practitioner; PCP Nurse Practitioner; Visit Provider Internal Medicine Hematology & Oncology
DX: Z51.11 Encounter for antineoplastic chemotherapy (principal); C74.01 Malignant neoplasm of cortex of right adrenal gland; C79.51 Secondary malignant neoplasm of bone; C78.6 Secondary malignant neoplasm of retroperitoneum and peritoneum; C78.7 Secondary malignant neoplasm of liver and intrahepatic bile duct; E27.40 Unspecified adrenocortical insufficiency; G89.3 Neoplasm related pain (acute) (chronic); Z79.891 Long term (current) use of opiate analgesic; Z91.19 Patient's noncompliance with other medical treatment and regimen; Z79.899 Other long term (current) drug therapy; Z93.1 Gastrostomy status; Z90.5 Acquired absence of kidney
CPT/HCPCS: 80053; 85025; 96366; 96367; 96375; 96413; 96417; 99214; J1100; J1453; J1940; J2469; J3475; J3480; J7030; J7040; J7050; J9060; J9181

== ENCOUNTER 2019-08-11 15:03 | Inpatient (IN) | payer MEDICARE, SELFPAY ==
[2019-08-11] VITALS (13 sets, daily range): BP systolic 111–138; BP diastolic 66–94; PULSE 60–78; RESP 16–23; TEMP 36.7–37.2; O2SAT 96–100; BMI 20.3
--- NOTE | 2019-08-11 15:14 | XR_ITS ---
WS: [id number] PORTABLE CHEST HISTORY: cough COMPARISON: 05/29/2019 LEFT subclavian Port-A-Cath. Line remains in good position. Lungs are clear and well expanded. No pleural effusion or pneumothorax. Cardiac size: Normal. Mediastinum/Aorta: Normal mediastinum. No osseous abnormality seen. Surgical clips in the RIGHT upper abdomen. XR/XR chest 1V portable [id number] IMPRESSION: Unremarkable portable chest.
--- NOTE | 2019-08-11 15:14 | CT_ITS ---
WS: [id number] CT ABDOMEN AND PELVIS WITH CONTRAST HISTORY: Abdominal Pain TECHNIQUE: Imaging performed of the abdomen and pelvis with IV contrast. Single phase imaging of the abdomen. Coronal and sagittal reformats are submitted. All CT scans at [facility] use at least one of these dose optimization techniques: automated exposure control; mA and/or kV adjustment per patient size (includes targeted exams where dose is matched to clinical indication); or iterativ e reconstruction. IV CONTRAST: Visipaque 320; 95 mL IV. Oral contrast: No DLP: 613.08 mGy.cm COMPARISON: 05/14/2017 Lower thorax: Lung bases are clear. Heart is normal size. No hiatal hernia. Liver/biliary system: Abnormal appearance of the liver. Patient has known metastatic disease in the L EFT and RIGHT lobes of the liver. The largest metastatic lesion is near the alex hepatis and caudate lobe measuring 4.3 x 2.4 cm. Smaller in size than on the prior most recent study 05/14/2019. Mild com pression upon the main portal vein but no thrombus. There are additional lesions in the medial RIGHT lobe the liver and also within the lateral segment LEFT lobe of the liver. Overall there is been mode rate improvement. No intrahepatic duct dilatation. There is a large mass abutting the posterior surfa ce of the liver measuring 4.6 x 6.0 cm. Mass is of low peripheral with peripheral enhancement. This h as been previously described in is probably an exophytic metastatic liver lesion. This mass has also slightly decreased in size. Gallbladder: Prior cholecystectomy. Pancreas: Normal. Spleen: Granulomatous. Normal size. Adrenal glands: RIGHT adrenal gland has been removed. Multiple surgical clips are present. There is a lso increased soft tissue in the RIGHT adrenal bed. Right kidney: RIGHT kidney has been removed. There is soft tissue in the retroperitoneum in the RIGHT renal bed. Soft tissue tumor measures 2.7 x 3.1 cm and abuts the posterior retroperitoneum with soft tissue thickening. There are smaller additional metastatic deposits in the renal bed with thickening of the diaphragmatic crura measuring up to 18 mm. Overall no change since the prior study. Left kidney: Normal. Aorta: Normal. Free fluid: None. GI tract: There is very mild mucosal edema throughout the colon with no obstruction. The appendix rem ains normal. Abdominal wall: Unremarkable abdominal wall. No hernia. Pelvis: Nondistended urinary bladder. Bones: Destructive mass involving the RIGHT pubic rami. Destruction of a portion of the acetabulum. V angie similar in appearance to the prior studies. Additional destructive lesion involving the RIGHT atr ium. Vertebroplasty cement in L4, known metastatic lesion. Notified Ute Webb at 08/11/2019 3:[address]/CT abdomen pelvis w con* [id number] IMPRESSION: 1. Patient has known metastatic renal disease. Recurrent tumor at the renal be d and RIGHT adrenalectomy bed and in the liver has overall slightly improved si nce 05/14/2019. No new or enlarging lesions. 2. Known metastatic disease to the RIGHT pubic rami, L4 and RIGHT ischial tube rosity is stable. 3. Mild diffuse colitis. No obstruction.
--- NOTE | 2019-08-11 15:15 | ECG_ITS ---
Measurements Intervals [place] Rate: 68 P: 60 NE: 165 QRS: 56 QRSD: 97 T: -11 QT: 542 QTc: 578 SINUS RHYTHM MODERATE T-WAVE ABNORMALITY, CONSIDER ANTEROLATERAL ISCHEMIA MODERATE T-WAVE ABNORMALITY, CONSIDER INFERIOR ISCHEMIA PROLONGED QT INTERVAL Compared to ECG 05/24/2019 14:36:01 Possible ischemia now present Prolonged QT interval now present T-wave abnormality still present Electronically Signed On 08-11-2019 21:00:00 CDT by Varsha Lopez M.D. [email or web address]
[2019-08-11] MEDS: iodixanol 320 mg/mL 100mL Btl IV (15:34)
--- NOTE | 2019-08-11 15:46 | PC.NURSE ---
Patients sugar checked at this time. Finger stick was 71.
[2019-08-11] MEDS: sodium chloride 0.9% 1,000 ML 999 ML IV ×3 (15:56→17:37)
[2019-08-11] MEDS: ondansetron 2 mg/ML SDV 2 mL 4 MG IVP ×2 (15:59→22:14)
[2019-08-11] MEDS: hydrocortisone 100 mg/2 mL SDV IVP (15:59)
[2019-08-11 16:06] LABS: Glucose Point of Care 71 mg/dL (70-110)
[2019-08-11 16:35] LABS: Ketone (Acetest) Serum Negative (Negative)
[2019-08-11 16:36] LABS: Basophils # 0.1 10^3/uL (0.0-0.1); Basophils % 1.1 %; Eosinophils # 0.5 10^3/uL (0.0-0.8); Eosinophils % 6.4 %; Hematocrit 40.9 % (42.0-52.0); Hemoglobin 13.1 g/dL (11.7-16.6); Mean Corpuscular Hemoglobin 29.5 pg (28.0-34.0); Mean Corpuscular Volume 92.1 fL (80-94); Mean Platelet Volume 9.3 fL (7.4-10.4); Monocytes # 0.5 10^3/uL (0.2-0.9); Monocytes % 6.4 %; Neutrophils # 3.4 10^3/uL (1.8-7.7); Nucleated Red Blood Cells % 0 %; Platelet Count 229 10^3/cmm (130-400); Red Blood Count 4.44 10^6/uL (4.1-5.3); Red Cell Distribution Width 14.9 % (12.1-15.1); White Blood Count 7.5 10^3/uL (4.0-10.0)
[2019-08-11 16:41] LABS: Lactic Sepsis W/Reflex 1.7 mmol/L (0.5-2.2)
[2019-08-11 16:43] LABS: Troponin(5th) Baseline 7 ng/mL (0-15)
[2019-08-11 17:14] LABS: INR 1.02 (0.8-1.2)
--- NOTE | 2019-08-11 17:18 | W.ED.NAVMDI ---
HPI - Nausea/Vomiting/Diarrhea General: Chief complaint: Nausea/Vomiting/Diarrhea Stated complaint: NAUSEA/ VOMITING POST CHEMO Time Seen by Provider: 08/11/19 15:12 History of Present Illness: HPI Narrative: Lit is a 38-year-old male who comes in complaining of nausea and vomiting and diarrhea that began last night. 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 He states since that time he is gotten progressively more weak to the point he cannot keep his medicines down or control his pain. He denies any other complaints or concerns at this time. The patient is a limited historian secondary to lethargy. 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 Unchanged Smoking addiction Counseled Surgical History History of right nephrectomy Hx of cholecystectomy Hx of total adrenalectomy Family History Grandmother Kidney malignant neoplasm Social History Smoking and tobacco status: current every day smoker cigarettes Packs smoked per day: 1 Alcohol intake: never Household members: spouse and children Marital status: Current occupational status: disabled Physical Exam Const: COMMON NORMALS: oriented x3, no limitations, healthy appearing and well nourished EXAM LIMITATIONS: no altered mental status GENERAL APPEARANCE: cooperative, well kempt and well developed ORIENTATION/CONSCIOUSNESS: Yes awake HENMT: COMMON NORMALS: normocephalic, head/scalp atraumatic, hearing grossly normal bilaterally, external ears normal, EAC's normal, external nose normal and moist oral mucous membranes HEAD & SCALP: normal to inspection, normocephalic and atraumatic FACE & SINUS: normal facial exam and face symmetric NOSE: external nose normal and nares normal EXTERNAL EAR: Yes external ears normal EXTERNAL AUDITORY CANAL: EAC's normal MOUTH: oral and palatal mucosa normal and tongue normal Eye: COMMON NORMALS: PERRL, EOMs intact bilaterally, conjunctivae normal and no scleral icterus GENERAL EYE: normal appearance of both eyes and normal light reflex CONJUNCTIVA: Yes conjunctivae normal SCLERA: sclerae normal CORNEA: Yes corneas normal PUPIL: Yes PERRL DIRECT OPHTHALMOSCOPY: Yes normal light reflex Neck/C-Spine: COMMON NORMALS: full ROM, no lymphadenopathy, supple, no meningeal signs and no JVD GENERAL: Yes normal visual inspection and Yes trachea midline CERVICAL SPINE: Yes cervical ROM normal Chest: COMMONS NORMALS: inspection of chest normal and palpation of chest normal Resp: COMMON NORMALS: normal respiratory effort, no retractions, no use of accessory muscles and clear to auscultation bilaterally EFFORT & INSPECTION: Yes able to speak in complete sentences AUSCULTATION: clear to auscultation bilaterally Cardio: COMMON NORMALS: no JVD, regular rate, regular rhythm, S1 normal heart sound, S2 normal heart sound, no gallops, no clicks, no murmurs and no rub JUGULAR VENOUS DISTENTION: no JVD RATE: regular rate RHYTHM: regular rhythm HEART SOUNDS: S1 normal and S2 normal GI: COMMON NORMALS: soft to palpation, non-tender, no hepatosplenomegaly and no masses INSPECTION: Yes normal to inspection PALPATION: Yes soft and Yes no hepatosplenomegaly : COMMON NORMALS: Yes no CVA tenderness BLADDER/KIDNEY EXAM: Yes no CVA tenderness Back/Pelvis: COMMON NORMALS: no CVA tenderness, thoracic and lumbar spine normal to inspection, no thoracic nor lumbar tenderness and thoraco-lumbar ROM normal Extremity: COMMON NORMALS: normal to inspection, full ROM, normal capillary refill, no joint enlargement, no clubbing, cyanosis or edema and no calf tenderness Neuro: COMMON NORMALS: oriented x3, CN's II-XII intact bilaterally, moves all extremities, no focal motor deficits and no sensory deficits noted MENINGEAL SIGNS: Yes no meningeal signs Psych: COMMON NORMALS: mental status grossly normal, thought process normal, cooperative, affect normal, speech normal and activity/motor behavior normal APPEARANCE: Yes well kempt SPEECH: Yes normal speech THOUGHT PROCESS: normal thought process Skin: COMMON NORMALS: no rashes or lesions noted, skin turgor normal, no jaundice, no petechiae and no mottling GENERAL SKIN EXAM: no rashes or lesions noted and turgor normal Course Vital Signs: Vital signs: Vital Signs Temperature 98.1 F 08/11/19 15:12 Pulse Rate 78 08/11/19 17:17 Respiratory Rate 20 H 08/11/19 17:17 Blood Pressure 124/85 08/11/19 17:17 Pulse Oximetry 98 08/11/19 17:17 MDM - Nausea/Vomiting/Diarrhea MDM Narrative: Medical decision making narrative: Lit is a 38-year-old male who comes in with intractable nausea vomiting and diarrhea. He has a prolonged QTC on his EKG. Initially his potassium was reported out of 4.1 but then the lab was canceled it is going to redraw everything because they do not have enough blood to run a magnesium or lipase. The case was endorsed to Dr. Saenz and he is agreeable to admission. Lab Data: Attestation: I reviewed the patient's lab results. Labs: Lab Results 08/11/19 08/11/19 08/11/19 Range/Units 15:46 15:54 16:03 WBC (4.0-10.0) 10^3/ uL RBC (4.1-5.3) 10^6/u L Hgb (11.7-16.6) g/dL Hct (42.0-52.0) % MCV (80-94) fL MCH (28.0-34.0) pg MCHC (30.0-36.0) g/dL RDW (12.1-15.1) % Plt Count (130-400) 10^3/c mm MPV (7.4-10.4) fL Neut % (Auto) % Lymph % (Auto) % [place] % (Auto) % Eos % (Auto) % Baso % (Auto) % Neut # (Auto) (1.8-7.7) 10^3/u L Lymph # (Auto) (0.8-4.8) 10^3/u L [place] # (Auto) (0.2-0.9) 10^3/u L Eos # (Auto) (0.0-0.8) 10^3/u L Baso # (Auto) (0.0-0.1) 10^3/u L Nucleated RBC % (a uto) % Nucleated RBCs # /100WBC PT 13.40 H (10.5-13.3) SECO NDS INR 1.02 (0.8-1.2) Sodium Potassium Chloride Carbon Dioxide Anion Gap BUN Creatinine GFR Calculation Glucose POC Glucose 71 (70-110) mg/dL Calculated Osmolal ity Lactic Acid 1.7 (0.5-2.2) mmol/L Calcium Magnesium Total Bilirubin AST ALT Alkaline Phosphata se Creatine Kinase Troponin T Baselin e (0-15) ng/mL Total Protein Albumin Globulin Lipase TSH Ethyl Alcohol Serum Ketones (Negative) 08/11/19 08/11/19 08/11/19 Range/Units 16:03 16:22 16:22 WBC 7.5 (4.0-10.0) 10^3/ uL RBC 4.44 (4.1-5.3) 10^6/u L Hgb 13.1 (11.7-16.6) g/dL Hct 40.9 L (42.0-52.0) % MCV 92.1 (80-94) fL MCH 29.5 (28.0-34.0) pg MCHC 32.0 (30.0-36.0) g/dL RDW 14.9 (12.1-15.1) % Plt Count 229 (130-400) 10^3/c mm MPV 9.3 (7.4-10.4) fL Neut % (Auto) 46.0 % Lymph % (Auto) 40.0 % [place] % (Auto) 6.4 % Eos % (Auto) 6.4 % Baso % (Auto) 1.1 % Neut # (Auto) 3.4 (1.8-7.7) 10^3/u L Lymph # (Auto) 3.0 (0.8-4.8) 10^3/u L [place] # (Auto) 0.5 (0.2-0.9) 10^3/u L Eos # (Auto) 0.5 (0.0-0.8) 10^3/u L Baso # (Auto) 0.1 (0.0-0.1) 10^3/u L Nucleated RBC % (a uto) 0 % Nucleated RBCs # 0.0 /100WBC PT (10.5-13.3) SECO NDS INR (0.8-1.2) Sodium Cancelled Potassium Cancelled Chloride Cancelled Carbon Dioxide Cancelled Anion Gap Cancelled BUN Cancelled Creatinine Cancelled GFR Calculation Cancelled Glucose Cancelled POC Glucose (70-110) mg/dL Calculated Osmolal ity Cancelled Lactic Acid (0.5-2.2) mmol/L Calcium Cancelled Magnesium Cancelled Total Bilirubin Cancelled AST Cancelled ALT Cancelled Alkaline Phosphata se Cancelled Creatine Kinase Cancelled Troponin T Baselin e 7 (0-15) ng/mL Total Protein Cancelled Albumin Cancelled Globulin Cancelled Lipase Cancelled TSH Cancelled Ethyl Alcohol Cancelled Serum Ketones (Negative) 08/11/19 Range/Units 16:22 WBC (4.0-10.0) 10^3/ uL RBC (4.1-5.3) 10^6/u L Hgb (11.7-16.6) g/dL Hct (42.0-52.0) % MCV (80-94) fL MCH (28.0-34.0) pg MCHC (30.0-36.0) g/dL RDW (12.1-15.1) % Plt Count (130-400) 10^3/c mm MPV (7.4-10.4) fL Neut % (Auto) % Lymph % (Auto) % [place] % (Auto) % Eos % (Auto) % Baso % (Auto) % Neut # (Auto) (1.8-7.7) 10^3/u L Lymph # (Auto) (0.8-4.8) 10^3/u L [place] # (Auto) (0.2-0.9) 10^3/u L Eos # (Auto) (0.0-0.8) 10^3/u L Baso # (Auto) (0.0-0.1) 10^3/u L Nucleated RBC % (a uto) % Nucleated RBCs # /100WBC PT (10.5-13.3) SECO NDS INR (0.8-1.2) Sodium Potassium Chloride Carbon Dioxide Anion Gap BUN Creatinine GFR Calculation Glucose POC Glucose (70-110) mg/dL Calculated Osmolal ity Lactic Acid (0.5-2.2) mmol/L Calcium Magnesium Total Bilirubin AST ALT Alkaline Phosphata se Creatine Kinase Troponin T Baselin e (0-15) ng/mL Total Protein Albumin Globulin Lipase TSH Ethyl Alcohol Serum Ketones Negative (Negative) Imaging Data^: CT Abd/Pel: Radiologist's impression: [address] [address] XRay Report Signed Patient: Lit Souaz Unit #: [id number] : 1980 Age/Sex: 38 / M ADM Date: 08/11/19 Loc: ER Room/Bed: Attending Dr: Ordering Provider/Ordering MD: Ute Webb DO Date of Service: 08/11/19 Procedure(s): XR chest 1V portable [id number] Accession Number(s): [id number] Report Number: [id number] WS: [id number] PORTABLE CHEST HISTORY: cough COMPARISON: 05/29/2019 LEFT subclavian Port-A-Cath. Line remains in good position. Lungs are clear and well expanded. No pleural effusion or pneumothorax. Cardiac size: Normal. Mediastinum/Aorta: Normal mediastinum. No osseous abnormality seen. Surgical clips in the RIGHT upper abdomen. XR/XR chest 1V portable [id number] IMPRESSION: Unremarkable portable chest. Dictated By: Judy Umana DO Signed By: Judy Umana DO Signed Date/Time: 08/11/19 1536 DD/ 1535 CXR: My impression: No acute cardiopulmonary findings. Discharge Plan Discharge Patient Disposition: Admitted As Inpatient Clinical Impression: Adrenal insufficiency, Dehydration, Prolonged QT syndrome Condition: Stable Prescriptions: No Action Lysodren 500 mg tablet 2,500 mg PO BID RF: 0 alprazolam 1 mg tablet 1 mg PO BID RF: 0 morphine 30 mg tablet extended release 30 mg PO BID RF: 0 ondansetron 8 mg tablet,disintegrating 8 mg PO Q12H PRN (Reason: Nausea) RF: 0 oxycodone-acetaminophen 10-325 mg tablet 1 tab PO Q6H PRN (Reason: Pain) RF: 0 morphine 15 mg tablet extended release 15 mg PO BID RF: 0 hydrocortisone 10 mg tablet See Rx Instructions .ROUTE .COMPLEX RF: 0 lorazepam 1 mg tablet 1 mg PO TID PRN (Reason: Nausea) RF: 0 sertraline 50 mg tablet 50 mg PO DAILY RF: 0 Referrals: Natividad Ying, [employer] [Primary Care Provider] - Coding Level of Care Code ED Banking Officer for g Titus
[2019-08-11] MEDS: cefepime 2,000 MG in sodium chloride 0.9% (plus) 50 ML 100 MG IV (17:37)
--- NOTE | 2019-08-11 18:08 | PM.HP ---
Providers/Chief Complaint Admitting Physician: Patrick Sandoval Primary Care Provider: JASS Roblero Chief Complaint: VOMITING, PROLONGED QT INTERVAL History of Present Illness Lit Souza is a 38 year old male with history of advanced adrenal cancer with mets to bones, liver, retroperitoneum currently on palliative chemotherapy. He received his chemotherapy yesterday. He developed vomiting and diarrhea shortly after chemotherapy. He reports vomiting multiple times. He denies any blood in the emesis or stool. He reports chronic and unchanged pains in the abdomen and other parts of his body. Denies fevers or chills. He denies any chest pain, shortness of breath, cough, palpitations. He denies similar episodes in the past. CT of the abdomen revealed: 1. Patient has known metastatic renal disease. Recurrent tumor at the renal bed and RIGHT adrenalectomy bed and in the liver has overall slightly improved since 05/14/2019. No new or enlarging lesions. 2. Known metastatic disease to the RIGHT pubic rami, L4 and RIGHT ischial tuberosity is stable. 3. Mild diffuse colitis. No obstruction. EKG shows T wave abnormalities, possibly ischemic as well as QT prolongation. The ER physician is giving magnesium sulfate IV. Potassium level was normal. The patient denies any other complaints. He seems to be a poor historian mostly wants to be left alone. Review of Systems General: Reports: 10 or more systems reviewed and unremarkable except in HPI and below Medications/Allergies Allergies Allergy/AdvReac Type Severity Reaction Status Date / Time Penicillins Allergy Unknown Verified 08/11/19 15:16 PFSH Acute PFSH: Medical History Adrenal insufficiency Hydrocortisone taper on discharge Cancer 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 Unchanged Smoking addiction Counseled Surgical History History of right nephrectomy Hx of cholecystectomy Hx of total adrenalectomy Family History Grandmother Kidney malignant neoplasm Social History Smoking and tobacco status: current every day smoker cigarettes Packs smoked per day: 1 Alcohol intake: never Household members: spouse and children Marital status: Current occupational status: disabled Vitals/I&O/Wt Last Vital Signs Temp 98.1 F 08/11/19 15:12 Pulse 78 08/11/19 17:17 Resp 20 H 08/11/19 17:17 BP 124/85 08/11/19 17:17 Pulse Ox 98 08/11/19 17:17 08/11/19 08/11/19 08/11/19 06:59 14:59 22:59 Intake Total 366.3 / 366.3 Balance 366.3 / 366.3 Weight last 48 hrs Weight 68.039 kg Physical Exam Narrative: EXAM NARRATIVE: The patient is awake alert and oriented x4. No acute distress. Looks tired. Pretty pale. Dry mucous membranes Eyes PERRLA, extraocular muscles intact. No icterus. Neck supple, no JVD Lungs are clear to auscultation bilaterally. No respiratory distress Heart S1, S2, regular Abdomen soft, tender, no guarding, no rebound, bowel sounds are present extremities no edema cyanosis or calf tenderness bilaterally Data : 08/11/19 16:22 08/11/19 16:22 Other Labs: Laboratory Results WBC 7.5 10^3/uL (4.0-10.0) 08/11/19 16:22 RBC 4.44 10^6/uL (4.1-5.3) 08/11/19 16:22 Hgb 13.1 g/dL (11.7-16.6) 08/11/19 16:22 Hct 40.9 % (42.0-52.0) L 08/11/19 16:22 MCV 92.1 fL (80-94) 08/11/19 16:22 MCH 29.5 pg (28.0-34.0) 08/11/19 16: MCHC 32.0 g/dL (30.0-36.0) 08/11/19 16:22 RDW 14.9 % (12.1-15.1) 08/11/19 16:22 Plt Count 229 10^3/cmm (130-400) 08/11/19 16:22 MPV 9.3 fL (7.4-10.4) 08/11/19 16:22 Neut % (Auto) 46.0 % 08/11/19 16:22 Lymph % (Auto) 40.0 % 08/11/19 16:22 [place] % (Auto) 6.4 % 08/11/19 16:22 Eos % (Auto) 6.4 % 08/11/19 16:22 Baso % (Auto) 1.1 % 08/11/19 16:22 Neut # (Auto) 3.4 10^3/uL (1.8-7.7) 08/11/19 16:22 Lymph # (Auto) 3.0 10^3/uL (0.8-4.8) 08/11/19 16:22 [place] # (Auto) 0.5 10^3/uL (0.2-0.9) 08/11/19 16:22 Eos # (Auto) 0.5 10^3/uL (0.0-0.8) 08/11/19 16:22 Baso # (Auto) 0.1 10^3/uL (0.0-0.1) 08/11/19 16:22 Nucleated RBC % (auto) 0 % 08/11/19 16:22 Nucleated RBCs # 0.0 /100WBC 08/11/19 16:22 PT 13.40 SECONDS (10.5-13.3) H 08/11/19 15:54 INR 1.02 (0.8-1.2) 08/11/19 15:54 Sodium Cancelled 08/11/19 16:22 Potassium Cancelled 08/11/19 16:22 Chloride Cancelled 08/11/19 16:22 Carbon Dioxide Cancelled 08/11/19 16:22 Anion Gap Cancelled 08/11/19 16:22 BUN Cancelled 08/11/19 16:22 Creatinine Cancelled 08/11/19 16:22 GFR Calculation Cancelled 08/11/19 16:22 Glucose Cancelled 08/11/19 16:22 POC Glucose 71 mg/dL (70-110) 08/11/19 15:46 Calculated Osmolality Cancelled 08/11/19 16:22 Lactic Acid 1.7 mmol/L (0.5-2.2) 08/11/19 16:03 Calcium Cancelled 08/11/19 16:22 Magnesium Cancelled 08/11/19 16:22 Total Bilirubin Cancelled 08/11/19 16:22 AST Cancelled 08/11/19 16:22 ALT Cancelled 08/11/19 16:22 Alkaline Phosphatase Cancelled 08/11/19 16:22 Creatine Kinase Cancelled 08/11/19 16:22 Troponin T Baseline 7 ng/mL (0-15) 08/11/19 16:03 Total Protein Cancelled 08/11/19 16:22 Albumin Cancelled 08/11/19 16:22 Globulin Cancelled 08/11/19 16:22 Lipase Cancelled 08/11/19 16:22 TSH Cancelled 08/11/19 16:22 Ethyl Alcohol Cancelled 08/11/19 16:22 Serum Ketones Negative (Negative) 08/11/19 16:22 Impressions Abdomen/Pelvis CT 08/11/19 15:14 IMPRESSION: 1. Patient has known metastatic renal disease. Recurrent tumor at the renal bed and RIGHT adrenalectomy bed and in the liver has overall slightly improved since 05/14/2019. No new or enlarging lesions. 2. Known metastatic disease to the RIGHT pubic rami, L4 and RIGHT ischial tuberosity is stable. 3. Mild diffuse colitis. No obstruction. Chest X-Ray 08/11/19 15:14 IMPRESSION: Unremarkable portable chest. Micro: Microbiology 08/11/19 16:03 Blood Culture - Preliminary Blood SPECIMEN COLLECTED 08/11/19 15:54 Blood Culture - Preliminary Blood SPECIMEN COLLECTED A&P Additional A&P Information This is a 38-year-old gentleman with advanced adrenal cancer with extensive metastatic disease who is currently on palliative chemotherapy by Dr. Castillo. He developed vomiting and diarrhea yesterday after his chemotherapy. CT shows already known changes in the abdomen and pelvis related to cancer as well as mild colitis. Most likely the symptoms are related to side effect of his chemotherapy. Dehydration secondary to vomiting and diarrhea. We will continue IV fluids. He will also receive his home pain and anxiety medications. He will receive Zofran for nausea. We will recheck his labs in the morning. QT prolongation and T wave changes. The patient does not have any symptoms of acute coronary syndrome. Will wait for troponin results. We will also continue monitoring potassium and magnesium levels and replace them if necessary. He is already receiving 1 g of magnesium IV. History of adrenal insufficiency. Will provide adrenal replacement with IV hydrocortisone until he is able to start taking his oral hydrocortisone. Hyponatremia. This is probably secondary to dehydration. We will monitor this. DVT prophylaxis. Lovenox. He is high risk for blood clots. The plan of care was discussed with the patient. He verbalized understanding and agreement. Attestations Medical Necessity Statement*: Observation. Hopefully patient's condition will improve overnight and will be able to discharge him in a day or 2. Coding Level of Care Code Acute Echocardiography Technologist for Shantal Qureshi
[2019-08-11] MEDS: hydrocortisone 100 mg/2 mL SDV 50 MG IVP (18:21)
[2019-08-11] MEDS: promethazine 25 mg/mL SDV 1 mL IM (18:22)
[2019-08-11 18:36] LABS: Alanine Aminotransferase 13 U/L (0-41); Albumin Level 3.4 g/dL (3.5-5.2); Alkaline Phosphatase 200 IU/L (40-130); Anion Gap 17.3 (5-19); Aspartate Amino Transferase 27 U/L (0-40); Blood Urea Nitrogen 15 mg/dL (6-20); Carbon Dioxide 16 mmol/L (22-29); Chloride 105 mmol/L (98-107); Creatine Phosphokinase 52 U/L (39-308); Globulin 3.6 g/dL (1.3-4.6); Glomerular Filtration Rate 93.9 mL/min (90-130); Glucose 91 mg/dL (65-115); Lipase 79 U/L (13-60); Magnesium 1.9 mg/dL (1.7-2.3); Osmolality Calculated 274 mOsm/kg (285-295); Potassium 4.3 mmol/L (3.5-5.1); Sodium 134 mmol/L (136-145); Thyroid Stimulating Hormone 1.86 uIU/mL (0.27-4.20); Total Bilirubin 0.4 mg/dL (0.15-1.2)
[2019-08-11] MEDS: enoxaparin 40 mg/0.4 mL Syringe SUBCUT (18:51)
[2019-08-11 18:56] LABS: Alcohol Level < 10 mg/dL (0-10)
--- NOTE | 2019-08-11 19:05 | PC.NURSE ---
Report received from FARHANA Phillips and care transferred to FARHANA Baca
--- NOTE | 2019-08-11 19:20 | PC.NURSE ---
Pt arrived to floor from ER at this time via gurney at this time. Pt is awake but drowsy, able to move to bed to bed independently. Breathing is non-labored on room air. Complains of nausea without emesis at this time. Reports chronic right abdominal pain 11/03. Pt oriented to room and call light. Admission in progress at this time.
[2019-08-11] MEDS: sodium chloride 0.9% 1,000 ML 150 ML IV (19:27)
[2019-08-11] MEDS: metoclopramide 5 mg/mL SDV 2 mL IVP (20:35)
[2019-08-11] MEDS: morphine ER (12 HR) 30 mg tablet PO (20:35)
[2019-08-11 21:10] LABS: Troponin 5 2HR Delta 0.8 ABS# (0-10)
--- NOTE | 2019-08-11 21:15 | ECG_ITS ---
Measurements Intervals [place] Rate: 61 P: -17 IL: 130 QRS: 51 QRSD: 97 T: 218 QT: 424 QTc: 429 SINUS RHYTHM MODERATE T-WAVE ABNORMALITY, CONSIDER ANTERIOR ISCHEMIA [-0.1+ mV T WAVE IN V3/V4] Compared to ECG 08/11/2019 16:28:13 Prolonged QT interval no longer present T-wave abnormality still present Possible ischemia still present Electronically Signed On 08-11-2019 21:12:33 CDT by Varsha Lopez M.D. [id number]
[2019-08-12] VITALS (11 sets, daily range): BP systolic 111–128; BP diastolic 60–76; PULSE 67–79; RESP 12–20; TEMP 36.4–37.4; O2SAT 97–100
[2019-08-12] MEDS: sodium chloride 0.9% 1,000 ML 150 ML IV (02:02)
[2019-08-12 04:55] LABS: Basophils # 0.1 10^3/uL (0.0-0.1); Basophils % 0.9 %; Eosinophils # 0.2 10^3/uL (0.0-0.8); Eosinophils % 3.8 %; Hematocrit 29.2 % (42.0-52.0); Hemoglobin 9.3 g/dL (11.7-16.6); Lymphocytes # 2.4 10^3/uL (0.8-4.8); Lymphocytes % 45.3 %; Mean Corpuscular HGB Conc 31.8 g/dL (30.0-36.0); Mean Corpuscular Hemoglobin 30.3 pg (28.0-34.0); Mean Corpuscular Volume 95.1 fL (80-94); Mean Platelet Volume 9.2 fL (7.4-10.4); Monocytes # 0.3 10^3/uL (0.2-0.9); Monocytes % 6.3 %; Neutrophils # 2.3 10^3/uL (1.8-7.7); Neutrophils % 43.3 %; Nucleated Red Blood Cells % 0 %; Platelet Count 186 10^3/cmm (130-400); Red Blood Count 3.07 10^6/uL (4.1-5.3); Red Cell Distribution Width 15.3 % (12.1-15.1); White Blood Count 5.3 10^3/uL (4.0-10.0)
[2019-08-12] MEDS: promethazine 25 mg/mL SDV 1 mL IM (05:06)
[2019-08-12] MEDS: oxyCODONE-APAP 10-325 mg Tablet 1 TAB PO (05:06)
[2019-08-12] MEDS: hydrocortisone 100 mg/2 mL SDV 50 MG IVP (05:15)
[2019-08-12 05:23] LABS: Alanine Aminotransferase 10 U/L (0-41); Alkaline Phosphatase 158 IU/L (40-130); Anion Gap 13.3 (5-19); Aspartate Amino Transferase 26 U/L (0-40); Blood Urea Nitrogen 13 mg/dL (6-20); Carbon Dioxide 19 mmol/L (22-29); Chloride 109 mmol/L (98-107); Globulin 2.7 g/dL (1.3-4.6); Glomerular Filtration Rate 107.6 mL/min (90-130); Glucose 79 mg/dL (65-115); Osmolality Calculated 279 mOsm/kg (285-295); Potassium 4.3 mmol/L (3.5-5.1); Sodium 137 mmol/L (136-145); Total Bilirubin 0.2 mg/dL (0.15-1.2); Total Protein 5.7 g/dL (6.6-8.7)
[2019-08-12 05:30] LABS: Slide Review Slide Review Perform
[2019-08-12 05:34] LABS: Amphetamines Screen Urine Positive (Negative); Barbiturates Screen Urine Negative (Negative); Benzodiazepines Screen Urine Positive (Negative); Cocaine Screen Urine Positive (Negative); Opiate Screen Urine Positive (Negative); PCP Screen Urine Negative (Negative); THC Screen Urine Negative (Negative)
[2019-08-12 06:01] LABS: Urine Color Yellow (Yellow)
[2019-08-12 06:02] LABS: Bacteria Urine 1+; Bilirubin Urine Neg (NEGATIVE); Blood Urine Neg (Negative); Glucose Urine UA Norm (Normal); Ketones Urine Negative (Negative); Leukocyte Esterase Urine Negative (Negative); Nitrate Urine Negative (Negative); Protein Urine Neg (Negative); RBC Urine RARE /hpf (0-2); Specific Gravity, Urine 1.015 (1.005-1.030); Squamous Epithelial Cell Urine RARE (0-5); Urine Appearance Clear (CLEAR); Urobilinogen Urine Norm (Negative); WBC Urine RARE /hpf (0-5); pH Urine 5 (5-7)
[2019-08-12] MEDS: morphine ER (12 HR) 30 mg tablet PO (08:00)
[2019-08-12] MEDS: aspirin 81 mg EC Tablet PO (08:53)
[2019-08-12] MEDS: sodium chloride 0.9% 1,000 ML 75 ML IV (08:54)
--- NOTE | 2019-08-12 13:43 | PM.DCS ---
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 Castillo. He developed vomiting and diarrhea after his chemotherapy. CT shows already known changes in the abdomen and pelvis related to cancer as well as mild colitis. Most likely the symptoms are related to side effect of his chemotherapy. Dehydration secondary to vomiting and diarrhea. He received IV fluids. Dehydration has currently resolved. He did not experience any more vomiting or diarrhea after his admission. QT prolongation and T wave changes. The patient does not have any symptoms of acute coronary syndrome. Troponin remained negative. The EKG changes could be related to amphetamine or cocaine use. U tox was positive for opiates benzos amphetamine and cocaine. The patient however denies using these drugs. He was provided with a referral to see a sorting livestock worker in the community for additional work-up due to his ischemic T wave changes. He verbalized understanding and agreement. He is also started on baby aspirin a day. History of adrenal insufficiency. No evidence of adrenal insufficiency at this time. He received IV steroids in the hospital. We are switching him back to his original hydrocortisone dose Hyponatremia. This is probably secondary to dehydration. Mild and improved. Hypocalcemia. He received IV replacement. DVT prophylaxis. Received Lovenox. The patient is being discharged in stable condition. He is instructed to come back to emergency room if he develops any new similar or different symptoms. He verbalized understanding and agreement. He is also instructed to follow-up with his primary care provider and oncologist. Physical Exam Narrative: EXAM NARRATIVE: The patient is awake alert and oriented x4. No acute distress. Looks better today. Denies diarrhea, vomiting, chest pain, shortness of breath, palpitations, abdominal pain, fever or chills. Moist mucous membranes. Skin is warm and dry. Eyes PERRLA, extraocular muscles intact. No icterus. Neck supple, no JVD Lungs are clear to auscultation bilaterally. No respiratory distress Heart S1, S2, regular Abdomen soft, tender, no guarding, no rebound, bowel sounds are present extremities no edema cyanosis or calf tenderness bilaterally Discharge Data Data Completed and Pending: Completed Studies During Hospitalization Category Date Time Status CT abdomen pelvis w con* [id number] Urge nt Cat Scan 08/11/19 15:14 Completed XR chest 1V alex ble [id number] Stat Exams 08/11/19 15:14 Completed Pending at discharge Category Date Time Status Arterial Blood Ga s W/O Coox Routine Lab 08/11/19 15:42 Received Blood Culture Sta t Lab 08/11/19 16:03 Results Labs from last 24 hours 08/12/19 08/12/19 08/12/19 05:13 05:13 04:30 WBC RBC Hgb Hct MCV MCH MCHC RDW Plt Count MPV Neut % (Auto) Lymph % (Auto) [place] % (Auto) Eos % (Auto) Baso % (Auto) Neut # (Auto) Lymph # (Auto) [place] # (Auto) Eos # (Auto) Baso # (Auto) Nucleated RBC % (a uto) Nucleated RBCs # PT INR Sodium 137 Potassium 4.3 Chloride 109 H Carbon Dioxide 19 L Anion Gap 13.3 BUN 13 Creatinine 0.8 GFR Calculation 107.6 Glucose 79 POC Glucose Calculated Osmolal ity 279 L Lactic Acid Calcium 6.0 L Magnesium Total Bilirubin 0.2 AST 26 ALT 10 Alkaline Phosphata se 158 H Creatine Kinase Troponin T Baselin e Troponin T 120 Min squax[place] Delta Troponin T Total Protein 5.7 L Albumin 3.0 L Globulin 2.7 Lipase TSH Urine Color Yellow Urine Appearance Clear Urine pH 5 Ur Specific Gravit y 1.015 Urine Protein Neg Urine Glucose (UA) Norm Urine Ketones Negative Urine Blood Neg Urine Nitrate Negative Urine Bilirubin Neg Urine Urobilinogen Norm Ur Leukocyte Jesi ase Negative Urine RBC Rare Urine WBC Rare Ur Squamous Epith Cells Rare Urine Bacteria 1+ H Urine Opiates Scre en Positive H Ur Barbiturates Sc reen Negative Ur Phencyclidine S crn Negative Ur Amphetamines Sc reen Positive H U Benzodiazepines Scrn Positive H Urine Cocaine Scre en Positive H U Marijuana (THC) Screen Negative Ethyl Alcohol Serum Ketones 08/12/19 08/11/19 08/11/19 04:30 20:29 17:55 WBC 5.3 RBC 3.07 L Hgb 9.3 L Hct 29.2 L MCV 95.1 H MCH 30.3 MCHC 31.8 RDW 15.3 H Plt Count 186 MPV 9.2 Neut % (Auto) 43.3 Lymph % (Auto) 45.3 [place] % (Auto) 6.3 Eos % (Auto) 3.8 Baso % (Auto) 0.9 Neut # (Auto) 2.3 Lymph # (Auto) 2.4 [place] # (Auto) 0.3 Eos # (Auto) 0.2 Baso # (Auto) 0.1 Nucleated RBC % (a uto) 0 Nucleated RBCs # 0.0 PT INR Sodium 134 L Potassium 4.3 Chloride 105 Carbon Dioxide 16 L Anion Gap 17.3 BUN 15 Creatinine 0.9 GFR Calculation 93.9 Glucose 91 POC Glucose Calculated Osmolal ity 274 L Lactic Acid Calcium 7.0 L Magnesium 1.9 Total Bilirubin 0.4 AST 27 ALT 13 Alkaline Phosphata se 200 H Creatine Kinase 52 Troponin T Baselin e Troponin T 120 Min squaxin 7.80 Delta Troponin T 0.8 Total Protein 7.0 Albumin 3.4 L Globulin 3.6 Lipase 79 H TSH 1.86 Urine Color Urine Appearance Urine pH Ur Specific Gravit y Urine Protein Urine Glucose (UA) Urine Ketones Urine Blood Urine Nitrate Urine Bilirubin Urine Urobilinogen Ur Leukocyte Jesi ase Urine RBC Urine WBC Ur Squamous Epith Cells Urine Bacteria Urine Opiates Scre en Ur Barbiturates Sc reen Ur Phencyclidine S crn Ur Amphetamines Sc reen U Benzodiazepines Scrn Urine Cocaine Scre en U Marijuana (THC) Screen Ethyl Alcohol < 10 Serum Ketones 08/11/19 08/11/19 08/11/19 16:22 16:22 16:22 WBC 7.5 RBC 4.44 Hgb 13.1 Hct 40.9 L MCV 92.1 MCH 29.5 MCHC 32.0 RDW 14.9 Plt Count 229 MPV 9.3 Neut % (Auto) 46.0 Lymph % (Auto) 40.0 [place] % (Auto) 6.4 Eos % (Auto) 6.4 Baso % (Auto) 1.1 Neut # (Auto) 3.4 Lymph # (Auto) 3.0 [place] # (Auto) 0.5 Eos # (Auto) 0.5 Baso # (Auto) 0.1 Nucleated RBC % (a uto) 0 Nucleated RBCs # 0.0 PT INR Sodium Cancelled Potassium Cancelled Chloride Cancelled Carbon Dioxide Cancelled Anion Gap Cancelled BUN Cancelled Creatinine Cancelled GFR Calculation Cancelled Glucose Cancelled POC Glucose Calculated Osmolal ity Cancelled Lactic Acid Calcium Cancelled Magnesium Cancelled Total Bilirubin Cancelled AST Cancelled ALT Cancelled Alkaline Phosphata se Cancelled Creatine Kinase Cancelled Troponin T Baselin e Troponin T 120 Min [place] Delta Troponin T Total Protein Cancelled Albumin Cancelled Globulin Cancelled Lipase Cancelled TSH Cancelled Urine Color Urine Appearance Urine pH Ur Specific Gravit y Urine Protein Urine Glucose (UA) Urine Ketones Urine Blood Urine Nitrate Urine Bilirubin Urine Urobilinogen Ur Leukocyte Jesi ase Urine RBC Urine WBC Ur Squamous Epith Cells Urine Bacteria Urine Opiates Scre en Ur Barbiturates Sc reen Ur Phencyclidine S crn Ur Amphetamines Sc reen U Benzodiazepines Scrn Urine Cocaine Scre en U Marijuana (THC) Screen Ethyl Alcohol Cancelled Serum Ketones Negative 08/11/19 08/11/19 08/11/19 16:03 16:03 15:54 WBC RBC Hgb Hct MCV MCH MCHC RDW Plt Count MPV Neut % (Auto) Lymph % (Auto) [place] % (Auto) Eos % (Auto) Baso % (Auto) Neut # (Auto) Lymph # (Auto) [place] # (Auto) Eos # (Auto) Baso # (Auto) Nucleated RBC % (a uto) Nucleated RBCs # PT 13.40 H INR 1.02 Sodium Potassium Chloride Carbon Dioxide Anion Gap BUN Creatinine GFR Calculation Glucose POC Glucose Calculated Osmolal ity Lactic Acid 1.7 Calcium Magnesium Total Bilirubin AST ALT Alkaline Phosphata se Creatine Kinase Troponin T Baselin e 7 Troponin T 120 Min [place] Delta Troponin T Total Protein Albumin Globulin Lipase TSH Urine Color Urine Appearance Urine pH Ur Specific Gravit y Urine Protein Urine Glucose (UA) Urine Ketones Urine Blood Urine Nitrate Urine Bilirubin Urine Urobilinogen Ur Leukocyte Jesi ase Urine RBC Urine WBC Ur Squamous Epith Cells Urine Bacteria Urine Opiates Scre en Ur Barbiturates Sc reen Ur Phencyclidine S crn Ur Amphetamines Sc reen U Benzodiazepines Scrn Urine Cocaine Scre en U Marijuana (THC) Screen Ethyl Alcohol Serum Ketones 08/11/19 15:46 WBC RBC Hgb Hct MCV MCH MCHC RDW Plt Count MPV Neut % (Auto) Lymph % (Auto) [place] % (Auto) Eos % (Auto) Baso % (Auto) Neut # (Auto) Lymph # (Auto) [place] # (Auto) Eos # (Auto) Baso # (Auto) Nucleated RBC % (a uto) Nucleated RBCs # PT INR Sodium Potassium Chloride Carbon Dioxide Anion Gap BUN Creatinine GFR Calculation Glucose POC Glucose 71 Calculated Osmolal ity Lactic Acid Calcium Magnesium Total Bilirubin AST ALT Alkaline Phosphata se Creatine Kinase Troponin T Baselin e Troponin T 120 Min [place] Delta Troponin T Total Protein Albumin Globulin Lipase TSH Urine Color Urine Appearance Urine pH Ur Specific Gravit y Urine Protein Urine Glucose (UA) Urine Ketones Urine Blood Urine Nitrate Urine Bilirubin Urine Urobilinogen Ur Leukocyte Jesi ase Urine RBC Urine WBC Ur Squamous Epith Cells Urine Bacteria Urine Opiates Scre en Ur Barbiturates Sc reen Ur Phencyclidine S crn Ur Amphetamines Sc reen U Benzodiazepines Scrn Urine Cocaine Scre en U Marijuana (THC) Screen Ethyl Alcohol Serum Ketones Vitals: Last Vital Signs Temp 98.3 F 08/12/19 12:59 Pulse 73 08/12/19 12:59 Resp 12 08/12/19 12:59 BP 112/63 08/12/19 12:59 Pulse Ox 98 08/12/19 12:59 Discharge Plan Discharge Patient Disposition: Home, Self-Care Condition: Stable Prescriptions: New aspirin 81 mg Tablet,Delayed Release (Dr/Ec) 81 mg PO DAILY Qty: 30 RF: 0 Continued Lysodren 500 mg tablet 2,500 mg PO BID RF: 0 alprazolam 1 mg tablet 1 mg PO BID RF: 0 morphine 30 mg tablet extended release 30 mg PO BID RF: 0 ondansetron 8 mg tablet,disintegrating 8 mg PO Q12H PRN (Reason: Nausea) RF: 0 oxycodone-acetaminophen 10-325 mg tablet 1 tab PO Q6H PRN (Reason: Pain) RF: 0 morphine 15 mg tablet extended release 15 mg PO BID RF: 0 hydrocortisone 10 mg tablet See Rx Instructions .ROUTE .COMPLEX RF: 0 lorazepam 1 mg tablet 1 mg PO TID PRN (Reason: Nausea) RF: 0 sertraline 50 mg tablet 50 mg PO DAILY RF: 0 Discharge Orders: Discharge Order (Routine); Ordered 08/12/19 Ordered By: Patrick Sandovla Referrals: Natividad Ying FNP [Primary Care Provider] - (You will have a hospital follow up appointment maria isabel Ying. Her office will be calling you with an appointment date and time. If you don't hear from them please call the office. ) Varsha Lopez MD [Physician] - 4-7 days (You will have an appointment with Dr. Lopez within one week. [facility] will call you with an appointment date and time. If you don't hear from them by Thursday evening please call the office. ) Adryan Castillo MD [Staff Physician] - 4-7 days (You have an appointment with Dr. Castillo on Thursday, August 23, at 9:00am. [facility] will be coming to your home the to draw your labwork. If you have any questions or concerns please call the office.) Discharge Diet: Usual diet Discharge Activity: Increase activity as tolerated Patient Instructions: Dehydration - Adult, Aspirin (By mouth), Secondary Adrenal Insufficiency (DC) Activity Restrictions/Additional Instructions: Please follow-up with your primary oncologist and your primary care physician. Please also follow-up with sorting livestock worker regarding abnormal heart enzymes as we discussed. Additional testing might be necessary. Please come back to emergency room if develop any new nausea, vomiting, abdominal pain, fever or chills, chest pain, palpitations, dizziness or lightheadedness, sweats, fever or chills or any other new complaints. Discharge Date/Time: 08/12/19 13:20 Discharge Attestations Time Spent in Discharge Care*: less than 30 min Quality Metrics Clinical Quality Measures During this hospital stay, did patient experience: None Coding Level of Care Code Acute [place] Worker for Shantal Qureshi
[2019-08-14 15:37] LABS: ABG PCO2 32.2 mmHg (35-45); Arterial Blood Gas Hematocrit 36.4 % (42-52); Base Excess ABG -4.1 mmol/L (-2.0-2.0); Blood Gas Sample Site Brachial, right; Blood Gas Sample Type Arterial; HCO3 ABG 19.9 mmol/L (22-26); PO2 ABG 64.6 mmHg (80.0-100.0)
== END 2019-08-12 13:20 | disposition home or self-care (01) | DRG 394 ==
LOC: ER 17:45 → ICU 17:46
PROVIDERS: Admitting Provider Internal Medicine; Emergency Provider Emergency Medicine; Family Provider Nurse Practitioner; PCP Nurse Practitioner; Visit Provider Internal Medicine
DX: K52.1 Toxic gastroenteritis and colitis (principal); C74.90 Malignant neoplasm of unspecified part of unspecified adrenal gland; C78.7 Secondary malignant neoplasm of liver and intrahepatic bile duct; C78.6 Secondary malignant neoplasm of retroperitoneum and peritoneum; C79.51 Secondary malignant neoplasm of bone; E89.6 Postprocedural adrenocortical (-medullary) hypofunction; E87.1 Hypo-osmolality and hyponatremia; E86.0 Dehydration; T45.1X5A Adverse effect of antineoplastic and immunosuppressive drugs, initial encounter; R11.2 Nausea with vomiting, unspecified; Z79.899 Other long term (current) drug therapy; I45.81 Long QT syndrome; Z79.891 Long term (current) use of opiate analgesic; F15.90 Other stimulant use, unspecified, uncomplicated; F14.90 Cocaine use, unspecified, uncomplicated
CPT/HCPCS: 12345; 36415; 36416; 36591; 36600; 71045; 74177; 80053; 80306; 80307; 81001; 82009; 82550; 82803; 82962; 83605; 83690; 83735; 84443; 84484; 85025; 85610; 87040; 93005; 96365; 96366; 96367; 96368; 96372; 96375; 96413; 96417; 99214; 99283; 99291; J0610; J0692; J1100; J1453; J1650; J1720; J1940; J2405; J2469; J2550; J2765; J3475; J3480; J7030; J7040; J7050; J9060; J9181; Q9967

== ENCOUNTER 2019-09-21 13:37 | Outpatient (CLI) | payer MEDICARE, SELFPAY ==
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
== END 2019-09-21 13:38 | disposition home or self-care (01) ==
LOC: ONCMED 13:43
PROVIDERS: Visit Provider Internal Medicine Hematology & Oncology
DX: C74.01 Malignant neoplasm of cortex of right adrenal gland (principal); C79.51 Secondary malignant neoplasm of bone; C78.6 Secondary malignant neoplasm of retroperitoneum and peritoneum; C78.7 Secondary malignant neoplasm of liver and intrahepatic bile duct; F15.90 Other stimulant use, unspecified, uncomplicated; F14.90 Cocaine use, unspecified, uncomplicated; E27.40 Unspecified adrenocortical insufficiency; G89.3 Neoplasm related pain (acute) (chronic); Z79.891 Long term (current) use of opiate analgesic; Z91.19 Patient's noncompliance with other medical treatment and regimen; Z79.899 Other long term (current) drug therapy; Z93.1 Gastrostomy status; Z90.5 Acquired absence of kidney
CPT/HCPCS: 99214

== ENCOUNTER 2019-10-15 13:36 | Inpatient (IN) | payer MEDICARE, SELFPAY ==
[2019-10-15] VITALS (11 sets, daily range): BP systolic 104–117; BP diastolic 60–77; PULSE 66–90; RESP 16–24; TEMP 36.6; O2SAT 96–100; BMI 19.0
--- NOTE | 2019-10-15 13:58 | CTR_ITS ---
PROCEDURE INFORMATION: Exam: CT Abdomen And Pelvis Without Contrast Exam date and time: 10/15/2019 2:12 PM Age: 39 years old Clinical indication: Nausea and vomiting; Abdominal pain; Prior surgery; Surgery type: Gb, port kidney; Additional info: Abdominal pain, adrenal cancer TECHNIQUE: Imaging protocol: Computed tomography of the abdomen and pelvis without contrast. Radiation optimization: All CT scans at this facility use at least one of these dose optimization techniques: automated exposure control; mA and/or kV adjustment per patient size (includes targeted exams where dose is matched to clinical indication); or iterative reconstruction. COMPARISON: CT abdomen pelvis w con* [id number] 05/14/2019 2:16 PM RADIATION DOSE METRICS: Total DLP (mGy-cm): 481.12 FINDINGS: Tubes, catheters and devices: There is a PEG tube in good position. There is an orogastric tube with tip in the stomach. Heart: There is a trace amount of pericardial fluid. Liver: The metastatic disease/masses in the liver are unchanged in appearance compared to the prior exam with the largest measuring approximately 5.5 cm in size image 22. No new or enlarging liver masses are identified. The large heterogeneous mass just contiguous with the posterior left lobe of the liver is smaller measuring 6.2 by 4.6 cm today where previously it was 7.9 x 5.9 cm. Gallbladder and bile ducts: There has been a cholecystectomy. Pancreas: The pancreas is normal. Spleen: The spleen is normal. Adrenals: The left adrenal gland is normal. Kidneys and ureters: Postoperative clips in the right renal fossa and suprarenal space are identified compatible with prior right adrenalectomy and right nephrectomy. The left kidney is normal. Stomach and bowel: There is no evidence of intestinal perforation or obstruction. There is no evidence of colitis/diverticulitis. There is fluid density stool in the colon that may reflect diarrhea. No wall thickening. The loops of small bowel have an appropriate appearance. Appendix: The appendix is not definitively identified. However, there is no CT evidence of a right lower quadrant inflammatory process. Intraperitoneal space: Unremarkable. No free air. No significant fluid collection. Retroperitoneal space: 2 unchanged partially calcified soft tissue masses are noted in the right retroperitoneum including the mass on image 28 that measures 4.1 by 2.8 cm and the 2nd mass on image 32 that measures 3.5 by 2.7 cm. Vasculature: Unremarkable.No abdominal aortic aneurysm. Lymph nodes: There is unchanged retroperitoneal adenopathy including a left periaortic lymph node image 33 that measures 2.0 x 3.6 cm in size. Bladder: There is nonspecific bladder wall thickening. This may be related to incomplete distention. Reproductive: Unremarkable as visualized. Bones/joints: Bone old vertebroplasty of L4 is noted. No acute fracture. Bony metastatic disease is again identified with areas of lytic destruction unchanged since the prior exam including the right iliac bone and right acetabulum extending into the right superior pubic ramus. Soft tissues: Unremarkable. CT/CT abdomen pelvis wo con [id number] IMPRESSION: 1. No acute abnormality. No bowel thickening or inflammatory changes. No fluid collection or abscess. No hydronephrosis left kidney. There is some fluid density in the colon that may reflect diarrhea. No findings of colitis or diverticulitis. 2. Unchanged masses in the right retroperitoneum/renal fossa concerning for tumor recurrence. 3. Unchanged liver masses/metastatic disease. 4. The mass posterior to the left lobe of the liver is smaller. 5. Unchanged bony metastatic disease. Radiation Dose CTDIVOL = (mGy): DLP = 481.12 (mGy-cm)
--- NOTE | 2019-10-15 14:07 | W.ED.ABDPA2 ---
HPI - Abdominal Pain General: Chief Complaint: Abdominal Pain Stated Complaint: ABD PAIN Time Seen by Provider: 10/15/19 13:46 Source: patient Mode of arrival: ambulatory Limitations: no limitations History of Present Illness: HPI narrative: 39-year-old gentleman with stage IV adrenal cancer presents to the emergency department with abdominal pain that has worsened over the last 3 days. This is associated with nausea and vomiting, he says he vomits all the time. He also has diarrhea. No fever, no sick contacts, no urinary symptoms. He presents to the emergency department for evaluation MD elicited complaint: abdominal pain Pertinent past history: other (adrenal cancer) Pain Consistency: constant Location: Diffuse Severity: severe Radiation: none Exacerbating factors: nothing Relieving factors: nothing Associated Symptoms: Reports diarrhea, nausea and vomiting; Denies chills, dysuria and fever(s) Review of Systems General: Reports: 10 or more systems reviewed and unremarkable except in HPI and below Const: Denies: fever(s), chills or body aches Eyes: Denies: change in vision or blurry vision ENMT: Denies: throat pain, enlarged tonsils, odynophagia, hoarseness, mouth pain or swelling of lips/tongue Card: Denies: palpitations, irregular heart rhythm, edema or swelling of feet/ankles Resp: Denies: dyspnea, productive cough or non-productive cough GI: Reports: abdominal pain, nausea, vomiting and diarrhea : Denies: flank pain, dysuria, urinary frequency, urinary urgency or urinary hesitancy Musc: Denies: neck pain, back pain or extremity swelling Skin/Breast: Denies: rash, pruritus or erythema Neuro: Denies: headache(s), numbness in extremities or weakness in extremities Endo: Denies: polyuria, polydipsia or tired all the time PFSH ED PFSH: Medical History Adrenal insufficiency Hydrocortisone taper on discharge Cancer Chronic steroid use Chronically on opiate therapy Drug abuse Drug screen positive for Meth and cocaine 07/2019 Hyperkalemia Resolved Jejunostomy tube in situ Long QT interval 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 Unchanged Non compliance with medical treatment Patient on palliative antineoplastic chemotherapy Shock liver Resolved Smoking addiction Counseled Surgical History History of right nephrectomy Hx of cholecystectomy Hx of total adrenalectomy Family History Grandmother Kidney malignant neoplasm Social History Smoking and tobacco status: current every day smoker cigarettes Packs smoked per day: 1 Alcohol intake: never Household members: spouse and children Marital status: Current occupational status: disabled Physical Exam Const: COMMON NORMALS: no acute distress, average body habitus, patient oriented x3, no limitations, healthy appearing, alert and well nourished HENMT: COMMON NORMALS: normocephalic, atraumatic and moist oral mucous membranes HEAD & SCALP: normocephalic and atraumatic Eye: COMMON NORMALS: Equal, round and reactive pupils present, EOMs intact bilaterally, conjunctivae normal and no scleral icterus CONJUNCTIVA: Yes conjunctivae normal PUPIL: Yes Equal, round and reactive pupils present Neck/C-Spine: COMMON NORMALS: no meningeal signs and no JVD Resp: COMMON NORMALS: normal respiratory effort, No retractions, No use of accessory muscles, clear to auscultation bilaterally and percussion normal AUSCULTATION: clear to auscultation bilaterally PERCUSSION: percussion normal Cardio: COMMON NORMALS: no JVD, regular rate, regular rhythm, S1 normal heart sound present, S2 normal heart sound present, No gallops present (Cardio), No clicks present (Cardio), No murmurs present (Cardio), No rub (Cardio) and Peripheral pulses 2+ throughout RATE: regular rate RHYTHM: regular rhythm HEART SOUNDS: S1 normal heart sound present and S2 normal heart sound present PERIPHERAL PULSES: Peripheral pulses 2+ throughout GI: COMMON NORMALS: Normal to inspection, nondistended, normoactive bowel sounds present, Soft to palpation, No hepatosplenomegaly present, no masses and no bruits PALPATION: Yes Soft to palpation, Yes Tenderness to palpation present (GI), No Guarding due to palpation present (GI), No Rigid due to palpation, Yes No hepatosplenomegaly present and No Rebound tenderness present OTHER: PEG tube in the LUQ, with no signs of infection. : COMMON NORMALS: Yes no CVA tenderness BLADDER/KIDNEY EXAM: Yes no CVA tenderness Back/Pelvis: COMMON NORMALS: no CVA tenderness Extremity: COMMON NORMALS: normal to inspection, full ROM, capillary refill normal, no calf tenderness and no pedal edema Neuro: COMMON NORMALS: patient oriented x3 SENSORIUM/ORIENTATION: Yes alert MENINGEAL SIGNS: Yes no meningeal signs Skin: COMMON NORMALS: no rashes or lesions noted, no wounds, turgor normal, no jaundice, no petechiae and no mottling GENERAL SKIN EXAM: no rashes or lesions noted and turgor normal Course Consultations: Consultation #1: Dr. Avery, hospitalist. She kindly accepted patient to her service. Time: 17:35 Vital Signs: Vital signs: Vital Signs Temperature 97.8 F 10/15/19 20:27 Pulse Rate 66 10/15/19 20: Respiratory Rate 20 H 10/15/19 20:27 Blood Pressure 114/60 10/15/19 20: Pulse Oximetry 100 10/15/19 20:27 MDM - Abdominal Pain MDM Narrative: Medical decision making narrative: 39-year-old gentleman with metastatic cancer presents to the emergency department with abdominal pain nausea and vomiting. Evaluation in the emergency department was unremarkable, however was unable to get the vomiting under control. He is therefore admitted as an observation for further management. Medical Records: Attestation: I reviewed the patient's medical records. Lab Data: Attestation: I reviewed the patient's lab results. Labs: Lab Results 10/15/19 10/15/19 10/15/19 Range/Units 14:40 14:40 14:40 WBC 8.8 (4.0-10.0) 10^3/ uL RBC 3.68 L (4.1-5.3) 10^6/u L Hgb 10.9 L (11.7-16.6) g/dL Hct 33.8 L (42.0-52.0) % MCV 91.8 (80-94) fL MCH 29.6 (28.0-34.0) pg MCHC 32.2 (30.0-36.0) g/dL RDW 14.1 (12.1-15.1) % Plt Count 497 H (130-400) 10^3/c mm MPV 8.7 (7.4-10.4) fL Neut % (Auto) 41.6 % Lymph % (Auto) 45.6 % Canyon % (Auto) 4.3 % Eos % (Auto) 7.5 % Baso % (Auto) 0.7 % Neut # (Auto) 3.7 (1.8-7.7) 10^3/u L Lymph # (Auto) 4.0 (0.8-4.8) 10^3/u L Canyon # (Auto) 0.4 (0.2-0.9) 10^3/u L Eos # (Auto) 0.7 (0.0-0.8) 10^3/u L Baso # (Auto) 0.1 (0.0-0.1) 10^3/u L Nucleated RBC % (a uto) 0 % Nucleated RBCs # 0.0 /100WBC Sodium 130 L (136-145) mmol/L Potassium 5.1 (3.5-5.1) mmol/L Chloride 100 (98-107) mmol/L Carbon Dioxide 15 L (22-29) mmol/L Anion Gap 20.1 H (5-19) BUN 14 (6-20) mg/dL Creatinine 0.6 L (0.7-1.2) mg/dL GFR Calculation 149.2 H (90-130) mL/min Glucose 80 (65-115) mg/dL Calculated Osmolal ity 265 L (285-295) mOsm/k g Lactate 0.6 (0.5-2.2) mmol/L Calcium 7.9 L (8.5-10.5) mg/dL Phosphorus (2.5-4.5) mg/dL Magnesium (1.7-2.3) mg/dL Iron (59-158) ug/dL TIBC mcg/dl % Saturation (20-50) % Unsat Iron Binding (112-347) ug/dL Total Bilirubin 0.4 (0.15-1.2) mg/dL AST 25 (0-40) U/L ALT 15 (0-41) U/L Alkaline Phosphata se 257 H (40-130) IU/L C-Reactive Protein 6.6 H (0.0-4.9) mg/L Total Protein 8.3 (6.6-8.7) g/dL Albumin 3.8 (3.5-5.2) g/dL Globulin 4.5 (1.3-4.6) g/dL Lipase 97 H (13-60) U/L Procalcitonin (0-0.5) ng/mL Random Cortisol (2.47-19.5) ug/m L 10/15/19 10/15/19 10/15/19 Range/Units 14:40 14:40 14:40 WBC (4.0-10.0) 10^3/ uL RBC (4.1-5.3) 10^6/u L Hgb (11.7-16.6) g/dL Hct (42.0-52.0) % MCV (80-94) fL MCH (28.0-34.0) pg MCHC (30.0-36.0) g/dL RDW (12.1-15.1) % Plt Count (130-400) 10^3/c mm MPV (7.4-10.4) fL Neut % (Auto) % Lymph % (Auto) % Canyon % (Auto) % Eos % (Auto) % Baso % (Auto) % Neut # (Auto) (1.8-7.7) 10^3/u L Lymph # (Auto) (0.8-4.8) 10^3/u L Canyon # (Auto) (0.2-0.9) 10^3/u L Eos # (Auto) (0.0-0.8) 10^3/u L Baso # (Auto) (0.0-0.1) 10^3/u L Nucleated RBC % (a uto) % Nucleated RBCs # /100WBC Sodium (136-145) mmol/L Potassium (3.5-5.1) mmol/L Chloride (98-107) mmol/L Carbon Dioxide (22-29) mmol/L Anion Gap (5-19) BUN (6-20) mg/dL Creatinine (0.7-1.2) mg/dL GFR Calculation (90-130) mL/min Glucose (65-115) mg/dL Calculated Osmolal ity (285-295) mOsm/k g Lactate (0.5-2.2) mmol/L Calcium (8.5-10.5) mg/dL Phosphorus 1.8 L (2.5-4.5) mg/dL Magnesium 1.8 (1.7-2.3) mg/dL Iron 66 (59-158) ug/dL TIBC 319 mcg/dl % Saturation 20.6 (20-50) % Unsat Iron Binding 253 (112-347) ug/dL Total Bilirubin (0.15-1.2) mg/dL AST (0-40) U/L ALT (0-41) U/L Alkaline Phosphata se (40-130) IU/L C-Reactive Protein (0.0-4.9) mg/L Total Protein (6.6-8.7) g/dL Albumin (3.5-5.2) g/dL Globulin (1.3-4.6) g/dL Lipase (13-60) U/L Procalcitonin 0.07 (0-0.5) ng/mL Random Cortisol 9.89 (2.47-19.5) ug/m L Imaging Data ^: CT Abd/Pel: Radiologist's impression: [place] [address] CT Scan Report Signed Patient: Jonathan Souza #: [id number] : 1980Acct#:[id number] Age/Sex: 39 / MADM Date: 10/15/19 Loc: ERRoom/Bed: Attending Dr: Ordering Provider/Ordering MD: Zofia Brunner [place] [facility] [place] of Service: 10/15/19 Procedure(s): CT abdomen pelvis wo con [id number] Accession Number(s): [id number] Report Number: [id number] PROCEDURE INFORMATION: Exam: CT Abdomen And Pelvis Without Contrast Exam date and time: 10/15/2019 2:12 PM Age: 39 years old Clinical indication: Nausea and vomiting; Abdominal pain; Prior surgery; Surgery type: Gb, port kidney; Additional info: Abdominal pain, adrenal cancer TECHNIQUE: Imaging protocol: Computed tomography of the abdomen and pelvis without contrast. Radiation optimization: All CT scans at this facility use at least one of these dose optimization techniques: automated exposure control; mA and/or kV adjustment per patient size (includes targeted exams where dose is matched to clinical indication); or iterative reconstruction. COMPARISON: CT abdomen pelvis w con* [id number] 05/14/2019 2:16 PM RADIATION DOSE METRICS: Total DLP (mGy-cm): 481.12 FINDINGS: Tubes, catheters and devices: There is a PEG tube in good position. There is an orogastric tube with tip in the stomach. Heart: There is a trace amount of pericardial fluid. Liver: The metastatic disease/masses in the liver are unchanged in appearance compared to the prior exam with the largest measuring approximately 5.5 cm in size image 22. No new or enlarging liver masses are identified. The large heterogeneous mass just contiguous with the posterior left lobe of the liver is smaller measuring 6.2 by 4.6 cm today where previously it was 7.9 x 5.9 cm. Gallbladder and bile ducts: There has been a cholecystectomy. Pancreas: The pancreas is normal. Spleen: The spleen is normal. Adrenals: The left adrenal gland is normal. Kidneys and ureters: Postoperative clips in the right renal fossa and suprarenal space are identified compatible with prior right adrenalectomy and right nephrectomy. The left kidney is normal. Stomach and bowel: There is no evidence of intestinal perforation or obstruction. There is no evidence of colitis/diverticulitis. There is fluid density stool in the colon that may reflect diarrhea. No wall thickening. The loops of small bowel have an appropriate appearance. Appendix: The appendix is not definitively identified. However, there is no CT evidence of a right lower quadrant inflammatory process. Intraperitoneal space: Unremarkable. No free air. No significant fluid collection. Retroperitoneal space: 2 unchanged partially calcified soft tissue masses are noted in the right retroperitoneum including the mass on image 28 that measures 4.1 by 2.8 cm and the 2nd mass on image 32 that measures 3.5 by 2.7 cm. Vasculature: Unremarkable.No abdominal aortic aneurysm. Lymph nodes: There is unchanged retroperitoneal adenopathy including a left periaortic lymph node image 33 that measures 2.0 x 3.6 cm in size. Bladder: There is nonspecific bladder wall thickening. This may be related to incomplete distention. Reproductive: Unremarkable as visualized. Bones/joints: Bone old vertebroplasty of L4 is noted. No acute fracture. Bony metastatic disease is again identified with areas of lytic destruction unchanged since the prior exam including the right iliac bone and right acetabulum extending into the right superior pubic ramus. Soft tissues: Unremarkable. CT/CT abdomen pelvis wo con [id number] IMPRESSION: 1. No acute abnormality. No bowel thickening or inflammatory changes. No fluid collection or abscess. No hydronephrosis left kidney. There is some fluid density in the colon that may reflect diarrhea. No findings of colitis or diverticulitis. 2. Unchanged masses in the right retroperitoneum/renal fossa concerning for tumor recurrence. 3. Unchanged liver masses/metastatic disease. 4. The mass posterior to the left lobe of the liver is smaller. 5. Unchanged bony metastatic disease. Radiation Dose CTDIVOL = (mGy): DLP = 481.12 (mGy-cm) Dictated By:Prachi Rondon Signed By:Sanjiv Rondonigned Date/Time:10/15/19 152 DD/ 1521 Discharge Plan Discharge Patient Disposition: Admitted As Inpatient Admit Provider: Sallie Avery Clinical Impression: Nausea vomiting and diarrhea, Adrenal insufficiency, 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 Condition: Stable Interventions: ED Discharge Assessment Last Done: 10/15/19 20:03 ED Charges Last Done: 10/15/19 20:03 Discharge Date/Time: 10/15/19 20:10 Coding Level of Care Code ED Milieu Coordinator for Chg Fwd Exam Comprehensive
--- NOTE | 2019-10-15 14:20 | PC.NURSE ---
Pt given a BSC for stooling.
[2019-10-15 15:07] LABS: Basophils # 0.1 10^3/uL (0.0-0.1); Basophils % 0.7 %; Eosinophils # 0.7 10^3/uL (0.0-0.8); Eosinophils % 7.5 %; Hematocrit 33.8 % (42.0-52.0); Hemoglobin 10.9 g/dL (11.7-16.6); Lymphocytes % 45.6 %; Mean Corpuscular HGB Conc 32.2 g/dL (30.0-36.0); Mean Corpuscular Hemoglobin 29.6 pg (28.0-34.0); Mean Corpuscular Volume 91.8 fL (80-94); Mean Platelet Volume 8.7 fL (7.4-10.4); Monocytes # 0.4 10^3/uL (0.2-0.9); Monocytes % 4.3 %; Neutrophils # 3.7 10^3/uL (1.8-7.7); Neutrophils % 41.6 %; Nucleated Red Blood Cells % 0 %; Platelet Count 497 10^3/cmm (130-400); Red Blood Count 3.68 10^6/uL (4.1-5.3); Red Cell Distribution Width 14.1 % (12.1-15.1); White Blood Count 8.8 10^3/uL (4.0-10.0)
[2019-10-15] MEDS: sodium chloride 0.9% 1,000 ML 999 ML IV (15:09)
[2019-10-15] MEDS: ondansetron 2 mg/ML SDV 2 mL 4 MG IVP (15:12)
[2019-10-15 15:14] LABS: Alanine Aminotransferase 15 U/L (0-41); Albumin Level 3.8 g/dL (3.5-5.2); Alkaline Phosphatase 257 IU/L (40-130); Anion Gap 20.1 (5-19); Aspartate Amino Transferase 25 U/L (0-40); Blood Urea Nitrogen 14 mg/dL (6-20); C Reactive Protein 6.6 mg/L (0.0-4.9); Calcium 7.9 mg/dL (8.5-10.5); Carbon Dioxide 15 mmol/L (22-29); Chloride 100 mmol/L (98-107); Globulin 4.5 g/dL (1.3-4.6); Glomerular Filtration Rate 149.2 mL/min (90-130); Glucose 80 mg/dL (65-115); Lipase 97 U/L (13-60); Osmolality Calculated 265 mOsm/kg (285-295); Potassium 5.1 mmol/L (3.5-5.1); Sodium 130 mmol/L (136-145); Total Bilirubin 0.4 mg/dL (0.15-1.2); Total Protein 8.3 g/dL (6.6-8.7)
[2019-10-15] MEDS: morphine 4 mg/mL SDV 1 mL 6 MG IVP (15:14)
[2019-10-15 15:15] LABS: Lactate (Lactic Acid level) 0.6 mmol/L (0.5-2.2)
[2019-10-15] MEDS: metoclopramide 5 mg/mL SDV 2 mL 10 MG IVP (17:02)
[2019-10-15] MEDS: lidocaine 2% viscous 15 ML, aluminum-mag hydrox-simethicon 30 ML, sucralfate oral liq 1 GM PO (17:02)
[2019-10-15] MEDS: morphine 4 mg/mL SDV 1 mL 2 MG IVP (17:03)
--- NOTE | 2019-10-15 18:54 | PM.HP ---
Providers/Chief Complaint Admitting Physician: Sallie Avery MD Chief Complaint: ABD PAIN History of Present Illness Lit Souza is a 39 year old male who is a poor historian with past medical history of metastatic malignant neoplasm of adrenal gland with metastasis known to bone, liver on palliative chemotherapy, noncompliant, history of adrenal insufficiency on chronic steroids, on chronic pain management with opiate therapy, history of QT prolongation, recent admission when he was found to be positive for cocaine and amphetamines, J-tube placed for feeding due to questionable gastric outlet obstruction who presented to the ER today with intractable nausea and vomiting along with abdominal pain going on for last 3 to 4 days. He states his J-tube has been clogged for a week and he has been to [facility] twice for it without any resolution. He states whenever he is trying to feeding himself through the jejunum outlet the machine starts beeping. He states he has been having nausea with one episode of vomiting earlier in the morning which was [id number], non-bilious. He also states he has been having diarrhea which is usually runny and watery for last 1 week. He denies of having any fever, chills, cough, flulike symptoms, recent known exposure to COVID-19. He also states he has not been taking his medication recently as he ran out of it except all his pain medications. He supposed to be on hydrocortisone for chronic adrenal insufficiency but has not taken it over 4 to 5 days. He states he is on 45 mg of morphine IR twice daily with Percocet 10 every 8 hour as needed for pain. He states he has been taking his pain medications regularly and is been prescribed to him usually from the oncology clinic but recently was referred to pain clinic who is still to follow-up with. He states recently he was given pain medication through the ER at [facility]. In the ER his blood work showed a hemoglobin of 10.9, white count of 8.8, platelet count of 497, sodium of 130, potassium of 5.1, anion gap of 20, carbon dioxide of 15, creatinine of 0.6, calcium is 7.9, alkaline phosphatase of 257, lipase of 97. CT abdomen was done which was negative for any acute abnormality, negative for any fluid collection or abscess or hydronephrosis, unchanged mass in the right peritoneum. Review of Systems Const: Denies: fever(s), chills, body aches, change in appetite, malaise, night sweats, diaphoresis, change in sleep pattern, daytime sleepiness or snoring Eyes: Denies: change in vision, blurry vision, photophobia, eye discomfort or eye discharge ENMT: Denies: throat pain, enlarged tonsils, hoarseness, mouth pain, oral sores, dry mouth, tinnitus, nasal congestion or post nasal drip Card: Denies: chest pain, palpitations, irregular heart rhythm, edema, swelling of feet/ankles, lightheadedness, syncope, pre-syncope, dyspnea on exertion, orthopnea, leg pain with exertion or acrocyanosis Resp: Denies: dyspnea, productive cough, non-productive cough, wheezing, stridor, pain on inspiration, change in phlegm color, hemoptysis or chest congestion GI: Reports: abdominal pain, nausea, vomiting and diarrhea; Denies: hematemesis, coffee ground emesis, dysphagia, heartburn, constipation, bloating, GI cramping, change in bowel habits, pain on defecation, hematochezia or melena : Denies: flank pain, difficulty urinating, dysuria, urinary frequency, urinary urgency, urinary hesitancy, urinary dribbling, difficulty starting urination, change in urine stream, nocturia or hematuria Musc: Denies: neck pain, back pain, extremity pain, joint pain, joint swelling, joint redness, joint stiffness or limited range of motion Neuro: Denies: headache(s), numbness in extremities, weakness in extremities, sensory changes, lack of coordination, difficulty walking, frequent falls, dizziness, vertigo, confusion, Slurred speech present, difficulty communicating thoughts or seizure-like activity Psych: Denies: anxiety, depression, mood swings, panic attacks, hopelessness or irritability Endo: Denies: polyuria, polydipsia, tired all the time, cold intolerance, excessive sweating, flushing or heat intolerance Papo/Lymph: Denies: easy bruising or easy bleeding All/Imm: Denies: tongue swelling, facial swelling or acute wheezing Medications/Allergies Home Medications Medication Instructions Recorded Confirmed Last Taken Type Lysodren 2,500 mg PO BID 05/14/19 10/15/19 08/10/19 History alprazolam 1 mg PO BID 05/14/19 10/15/19 08/10/19 History hydrocortisone See Rx Instructions .ROUTE .COMPLEX 05/14/19 10/15/19 08/10/19 History lorazepam 1 mg PO TID PRN 05/14/19 10/15/19 08/10/19 History morphine 15 mg PO BID 05/14/19 10/15/19 08/10/19 History morphine 30 mg PO BID 05/14/19 10/15/19 08/10/19 History ondansetron 8 mg PO Q12H PRN 05/14/19 10/15/19 Unknown History oxycodone-acetaminophen [Percocet] 1 tab PO Q6H PRN 05/14/19 10/15/19 08/10/19 History sertraline [Zoloft] 50 mg PO DAILY 05/14/19 10/15/19 08/10/19 History aspirin 81 mg PO DAILY #30 tab 08/12/19 10/15/19 Unknown Rx pantoprazole 40 mg PO DAILY 10/15/19 10/15/19 Unknown History sucralfate [Carafate] 1 g PO BID 10/15/19 10/15/19 Unknown History Allergies Allergy/AdvReac Type Severity Reaction Status Date / Time Penicillins Allergy Unknown Verified 10/15/19 14:13 PFSH Acute PFSH: Medical History Adrenal insufficiency Hydrocortisone taper on discharge Cancer Chronic steroid use Chronically on opiate therapy Drug abuse Drug screen positive for Meth and cocaine 07/2019 Hyperkalemia Resolved Jejunostomy tube in situ Long QT interval 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 Unchanged Non compliance with medical treatment Patient on palliative antineoplastic chemotherapy Shock liver Resolved Smoking addiction Counseled Surgical History History of right nephrectomy Hx of cholecystectomy Hx of total adrenalectomy Family History Grandmother Kidney malignant neoplasm Social History Smoking and tobacco status: current every day smoker cigarettes Packs smoked per day: 1 Alcohol intake: never Household members: spouse and children Marital status: Current occupational status: disabled Vitals/I&O/Wt Last Vital Signs Temp 97.9 F 10/15/19 13:37 Pulse 76 10/15/19 17:11 Resp 17 10/15/19 17:11 BP 104/74 10/15/19 17:11 Pulse Ox 100 10/15/19 17:11 10/15/19 10/15/19 10/15/19 06:59 14:59 22:59 Intake Total 1000 / 1000 Balance 1000 / 1000 Weight last 48 hrs Weight 63.503 kg Physical Exam Narrative: EXAM NARRATIVE: General: No acute distress, AO x3, thin, frail, dehydrated, anxious HEENT: PERRLA, pupils bilaterally equal and reactive Chest: Normal vesicular breath sounds, no added sounds, equal good air entry bilaterally CVS: S1-S2 regular, no murmurs, no tachycardia, no gallops, no rubs Abdomen: Soft, tender, guarding present, no rebound, J-tube present without any granulation at site, no organomegaly, bowel sounds sluggish Neuro: No focal deficits, no facial deformity, AO x3, power 5/5 in all limbs Data : 10/15/19 14:40 10/15/19 14:40 A&P Assessment and plan (1) Nausea vomiting and diarrhea: Status: Acute (2) 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: Status: Acute (3) Jejunostomy tube in situ: Status: Acute (4) Patient on palliative antineoplastic chemotherapy: Status: Acute (5) Non compliance with medical treatment: Status: Acute (6) Chronic steroid use: Status: Acute (7) Chronically on opiate therapy: Status: Acute (8) Long QT interval: Status: Acute (9) Adrenal insufficiency: Status: Acute Additional A&P Information 39 year-old male with past medical history of 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 Chances of infection are low. Will check for drug screen, procalcitonin, iron panel, cortisol level, lactate. For nausea, vomiting: He states his jejunostomy tube has not been working and seems to be clogged. CT abdomen was negative for any abscess, collection, colitis, bowel obstruction. Will do J-tube Gastrografin study to rule out any obstruction. D5 NS at 75 cc/h. Promethazine as needed for vomiting and nausea. Will avoid Zofran because of history of QT prolongation. Protonix 40 mg IV twice daily, Carafate 1 g p.o. twice daily Clear liquid diets, will advance as tolerated. 0.5 mg IV Ativan every 6 hours as needed for nausea and vomiting. Diarrhea: Given his recurrent admissions cannot rule out C. difficile. Stool studies to rule out infectious cause. Most likely because of chronic pancreatic insufficiency. We will start patient on Zenpep once able to eat. Metastatic adrenal gland carcinoma on palliative chemotherapy: Patient is on chronic opiate therapy: Supposed to be following up with pain clinic but is not doing at present as per the history. Patient is a poor historian and not sure if he is getting his medication through [facility] ER or from the streets. To avoid withdrawal we will continue patient on morphine at his home dose. We will do Percocet 5 mg every 8 hour as needed. Chronic steroid therapy/history of adrenal insufficiency: Patient states he has not been taking steroids for some time because he ran out. Check random cortisol level right now and in a.m. Patient does not seem to be underlying crisis for now. Blood pressure is maintained, no hypothermia. We will check urine drug screen. Will straight cath patient to get a urine sample. Prolonged QT: Recent history of QT prolongation. Stat EKG. Will do medical reconciliation to avoid QT prolongation medications. For now as patient is doing fine we will start him on his chronic medication like Zoloft, Ativan. Discussed in detail with patient need for compliance and following up with his provider so that he does not line up with medications. Full code. Clear liquid diet. Heparin 5000 every 12 hourly Attestations Medical Necessity Statement*: Observation admission. For nausea vomiting most likely less than 2 midnights Time Spent in Patient Care: Greater than 35 minutes Coding Level of Care Code Acute Clinical Reviewer for Chg Fwd Diagnoses Nausea vomiting and diarrhea R11.2; R19.7 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 C79.70 Jejunostomy tube in situ Z93.4 Patient on palliative antineoplastic chemotherapy Z79.899 Non compliance with medical treatment Z91.19 Chronic steroid use Chronically on opiate therapy Z79.891 Long QT interval R94.31 Adrenal insufficiency E27.40
[2019-10-15 18:55] LABS: Magnesium 1.8 mg/dL (1.7-2.3); Phosphorus 1.8 mg/dL (2.5-4.5)
[2019-10-15 19:02] LABS: Bilirubin Urine 1+ (NEGATIVE); Blood Urine Neg (Negative); Glucose Urine UA Norm (Normal); Ketones Urine 1+ (Negative); Leukocyte Esterase Urine Negative (Negative); Nitrate Urine Negative (Negative); Protein Urine Neg (Negative); Urine Appearance Clear (CLEAR); Urine Color Yellow (Yellow); Urobilinogen Urine Norm (Negative); pH Urine 5 (5-7)
[2019-10-15 19:04] LABS: Add Urine Culture? No; Bacteria Urine TRACE; Mucus Urine 1+; Squamous Epithelial Cell Urine RARE (0-5)
[2019-10-15 19:05] LABS: Procalcitonin 0.07 ng/mL (0-0.5)
--- NOTE | 2019-10-15 19:05 | XRR_ITS ---
PROCEDURE INFORMATION: Exam: XR Abdomen, 1 View Exam date and time: 10/15/2019 7:54 PM Age: 39 years old Clinical indication: Other: Non functional peg tube; Additional info: Non functioning peg tube TECHNIQUE: Imaging protocol: XR of the abdomen. Views: Frontal supine view of the abdomen. 1 View. COMPARISON: CT abdomen pelvis con [id number] 10/15/2019 2:50 PM FINDINGS: Tubes, catheters and devices: Is single view the abdomen is submitted after contrast injection into a PEG tube. The PEG tube is in the stomach. Gastrointestinal tract: The image demonstrates contrast in the stomach duodenum and small bowel. No bowel obstruction. Intraperitoneal space: No contrast leak. Postoperative clips in the right abdomen are noted. Bones/joints: Unremarkable. XR/XR KUB portable [id number] IMPRESSION: PEG tube is in the stomach. The visualized opacified bowel is unremarkable.
[2019-10-15 19:11] LABS: Amphetamines Screen Urine Negative (Negative); Barbiturates Screen Urine Negative (Negative); Benzodiazepines Screen Urine Positive (Negative); Cocaine Screen Urine Negative (Negative); Opiate Screen Urine Positive (Negative); PCP Screen Urine Negative (Negative); THC Screen Urine Negative (Negative)
[2019-10-15 19:16] LABS: Iron 66 ug/dL (59-158); Percent Saturation 20.6 % (20-50); Total Iron Binding Capacity 319 mcg/dl; Unsaturated Iron Binding 253 ug/dL (112-347)
[2019-10-15 19:19] LABS: Cortisol Random 9.89 ug/mL (2.47-19.5)
[2019-10-15] MEDS: sodium chloride 0.9% 1,000 ML 100 ML IV (19:37)
--- NOTE | 2019-10-15 21:08 | ECG_ITS ---
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 Measurements Intervals [place] Rate: 67 P: 51 [place]: 169 QRS: 34 QRSD: 92 T: 49 QT: 456 QTc: 484 Interpretive Statements SINUS RHYTHM NONSPECIFIC T-WAVE ABNORMALITY PROLONGED QT INTERVAL Compared to ECG 08/11/2019 21:06:37 Prolonged QT interval now present Possible ischemia no longer present T-wave abnormality still present Electronically Signed On 10-16-2019 13:39:35 CDT by Varsha Lopez M.D. [id number]
[2019-10-15] MEDS: dextrose 5%-sod chloride 0.9% 1,000 ML 75 ML IV (23:14)
[2019-10-15] MEDS: heparin 5,000 unit/mL INJ 1 mL 5000 UNIT SUBCUT (23:15)
[2019-10-15] MEDS: oxyCODONE-APAP 10-325 mg Tablet 1 TAB PO (23:16)
[2019-10-16] VITALS (11 sets, daily range): BP systolic 100–121; BP diastolic 45–74; PULSE 10–77; RESP 16–20; TEMP 36.5–37; O2SAT 95–100
[2019-10-16] MEDS: LORazepam 1 mg Tablet PO (01:41)
[2019-10-16] MEDS: promethazine 25 mg/mL SDV 1 mL 12.5 MG IM (01:50)
[2019-10-16 05:42] LABS: Basophils # 0.1 10^3/uL (0.0-0.1); Basophils % 1.1 %; Eosinophils # 0.5 10^3/uL (0.0-0.8); Eosinophils % 9.5 %; Hematocrit 30.9 % (42.0-52.0); Lymphocytes # 3.3 10^3/uL (0.8-4.8); Lymphocytes % 60.1 %; Mean Corpuscular HGB Conc 32.4 g/dL (30.0-36.0); Mean Corpuscular Hemoglobin 30.4 pg (28.0-34.0); Mean Corpuscular Volume 93.9 fL (80-94); Mean Platelet Volume 8.7 fL (7.4-10.4); Monocytes # 0.3 10^3/uL (0.2-0.9); Monocytes % 5.2 %; Neutrophils # 1.3 10^3/uL (1.8-7.7); Neutrophils % 23.7 %; Nucleated Red Blood Cells % 0 %; Platelet Count 371 10^3/cmm (130-400); Red Blood Count 3.29 10^6/uL (4.1-5.3); Red Cell Distribution Width 14.1 % (12.1-15.1); White Blood Count 5.6 10^3/uL (4.0-10.0)
[2019-10-16] MEDS: hydrocortisone 10 mg Tablet 20 MG PO (05:44)
[2019-10-16] MEDS: oxyCODONE-APAP 10-325 mg Tablet 1 TAB PO ×3 (05:44→20:25)
[2019-10-16 05:56] LABS: Alanine Aminotransferase 15 U/L (0-41); Albumin Level 3.3 g/dL (3.5-5.2); Alkaline Phosphatase 231 IU/L (40-130); Anion Gap 15.4 (5-19); Aspartate Amino Transferase 32 U/L (0-40); Blood Urea Nitrogen 13 mg/dL (6-20); Calcium 6.8 mg/dL (8.5-10.5); Carbon Dioxide 16 mmol/L (22-29); Chloride 104 mmol/L (98-107); Creatinine Clr Calc Pharmacy 150.8079; Glomerular Filtration Rate 124.9 mL/min (90-130); Glucose 101 mg/dL (65-115); Osmolality Calculated 266 mOsm/kg (285-295); Potassium 5.4 mmol/L (3.5-5.1); Sodium 130 mmol/L (136-145); Total Bilirubin 0.4 mg/dL (0.15-1.2); Total Protein 7.3 g/dL (6.6-8.7)
[2019-10-16 06:16] LABS: Slide Review Slide Review Perform
[2019-10-16] MEDS: morphine ER (12 HR) 30 mg tablet PO ×2 (08:12→17:02)
[2019-10-16] MEDS: sucralfate 1 gm Tablet PO ×2 (08:12→17:02)
[2019-10-16] MEDS: sertraline 50 mg Tablet PO (08:13)
[2019-10-16] MEDS: aspirin 81 mg EC Tablet PO (08:13)
[2019-10-16] MEDS: heparin 5,000 unit/mL INJ 1 mL 5000 UNIT SUBCUT ×2 (08:13→20:25)
--- NOTE | 2019-10-16 14:17 | PM.PN ---
Subjective Subjective: Interval history: No acute events overnight. Patient states he is feeling little better. Complaining of pain. States nausea and vomiting is little better. He is able to tolerate clear liquid diet. Tried feeding Ensure through patient's J-tube as KUB was negative for any tube dysfunction but would seem to be clogged. Tried flushing with coke but not going through. Discussed with Dr. Garcia he states can try pancreatic enzyme liquid but not available in pharmacy. Vitals/I&O/Wt Last Vital Signs Temp 98.1 F 10/16/19 12:00 Pulse 75 10/16/19 12:00 Resp 16 10/16/19 12:00 BP 107/68 10/16/19 12:00 Pulse Ox 100 10/16/19 12:00 10/15/19 10/16/19 10/16/19 22:59 06:59 14:59 Intake Total 1000 / 1000 52 / 1052 821 / 821 Output Total 120 / 120 250 / 370 600 / 600 Balance 880 / 880 -198 / 682 221 / 221 Weight last 48 hrs Weight 73.618 kg Weight 63.503 kg Physical Exam Narrative: EXAM NARRATIVE: General: No acute distress, AO x3, thin, frail, dehydrated, anxious HEENT: PERRLA, pupils bilaterally equal and reactive Chest: Normal vesicular breath sounds, no added sounds, equal good air entry bilaterally CVS: S1-S2 regular, no murmurs, no tachycardia, no gallops, no rubs Abdomen: Soft, tender, guarding present, no rebound, J-tube present without any granulation at site, no organomegaly, bowel sounds sluggish Neuro: No focal deficits, no facial deformity, AO x3, power 5/5 in all limbs Data : 10/16/19 05:25 10/16/19 05:25 A&P Assessment and plan (1) Nausea vomiting and diarrhea: Status: Acute (2) 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: Status: Acute Qualifiers: Laterality: unspecified laterality Qualified Code(s): C79.70 - Secondary malignant neoplasm of unspecified adrenal gland (3) Jejunostomy tube in situ: Status: Acute (4) Patient on palliative antineoplastic chemotherapy: Status: Acute (5) Non compliance with medical treatment: Status: Acute (6) Chronic steroid use: Status: Acute (7) Chronically on opiate therapy: Status: Acute (8) Long QT interval: Status: Acute (9) Adrenal insufficiency: Status: Acute (10) PEG tube malfunction: Status: Acute Additional A&P Information 39 year-old male with past medical history of 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 Chances of infection are low. Cortisol level, lactate level, drug screen, procalcitonin, iron panel appreciated. For nausea, vomiting: He states his jejunostomy tube has not been working and seems to be clogged. CT abdomen was negative for any abscess, collection, colitis, bowel obstruction. Gastrografin study ruled out obstruction of the G-tube. As stated above J-tube is still not functioning. Discussed with Dr. Castillo. Most likely tube getting clogged by debris. Unfortunately pancreatic enzyme liquid is not available in pharmacy. Will try again with [employer]. If not able to function unfortunately cannot do gastric portography as patient feels nauseous while using and feels regurgitation. Patient overnight has been doing fine with clear liquid diet orally. We will try to advance to GI soft orally and see how he does. If not able to tolerate will have to consult surgery for possible J-tube malfunction. D5 NS at 75 cc/h. Promethazine as needed for vomiting and nausea. Will avoid Zofran because of history of QT prolongation. Protonix 40 mg IV twice daily, Carafate 1 g p.o. twice daily 0.5 mg IV Ativan every 6 hours as needed for nausea and vomiting. Diarrhea: Given his recurrent admissions cannot rule out C. difficile. Stool studies to rule out infectious cause. Most likely because of chronic pancreatic insufficiency. We will start patient on Zenpep once able to eat. Metastatic adrenal gland carcinoma on palliative chemotherapy: Patient is on chronic opiate therapy: Supposed to be following up with pain clinic but is not doing at present as per the history. He states at home he takes morphine 45 mg twice daily along with Percocet 10 every 6 hours as needed. To avoid withdrawal we will continue patient on morphine at 30 mg twice daily. We will do Percocet 5 mg every 8 hour as needed. Chronic steroid therapy/history of adrenal insufficiency: Patient states he has not been taking steroids for some time because he ran out. Cortisol level have been borderline low stable. Patient does not seem to be underlying crisis for now. Blood pressure is maintained, no hypothermia. Start patient on hydrocortisone 10 mg daily. Have lowered the dose as patient does not seem to be in overt adrenal crisis. Prolonged QT: Recent history of QT prolongation. QTC 484. Will do medical reconciliation to avoid QT prolongation medications. Hyperkalemia: Calcium gluconate 1 g along with DuoNeb's. We will repeat BMP in evening. For now as patient is doing fine we will start him on his chronic medication like Zoloft, Ativan. Goals of care: Because of multiple comorbidities, advanced malignancy patient is interested in hospice. Care coordination has been consulted as well. Full code. Clear liquid diet advanced to GI soft. Heparin 5000 every 12 hourly Because of intractable nausea vomiting NG tube dysfunction well change admission to inpatient. Attestations Medical Necessity Statement*: Intractable nausea vomiting, J-tube malfunction Time Spent in Patient Care: Greater than 35 minutes (>than 50% of time spent in counselling and/or direct pt care on unit). 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
[2019-10-16] MEDS: dextrose 5%-sod chloride 0.9% 1,000 ML 75 ML IV (17:59)
[2019-10-16 18:26] LABS: Anion Gap 14.9 (5-19); Blood Urea Nitrogen 11 mg/dL (6-20); Calcium 7.4 mg/dL (8.5-10.5); Carbon Dioxide 15 mmol/L (22-29); Chloride 107 mmol/L (98-107); Glomerular Filtration Rate 149.2 mL/min (90-130); Glucose 94 mg/dL (65-115); Osmolality Calculated 270 mOsm/kg (285-295); Potassium 4.9 mmol/L (3.5-5.1); Sodium 132 mmol/L (136-145)
[2019-10-16] MEDS: LORazepam 2 mg/mL INJ 1 mL 0.5 MG IVP (19:21)
[2019-10-17] VITALS (13 sets, daily range): BP systolic 108–124; BP diastolic 67–76; PULSE 69–82; RESP 16–20; TEMP 36.1–36.6; O2SAT 96–100
[2019-10-17] MEDS: LORazepam 2 mg/mL INJ 1 mL 0.5 MG IVP (01:19)
[2019-10-17] MEDS: oxyCODONE-APAP 10-325 mg Tablet 1 TAB PO (02:07)
[2019-10-17] MEDS: LORazepam 1 mg Tablet PO (03:43)
[2019-10-17 04:16] LABS: Basophils % 0.7 %; Eosinophils # 0.6 10^3/uL (0.0-0.8); Eosinophils % 10.2 %; Hematocrit 30.5 % (42.0-52.0); Hemoglobin 9.6 g/dL (11.7-16.6); Lymphocytes # 2.8 10^3/uL (0.8-4.8); Lymphocytes % 50.2 %; Mean Corpuscular HGB Conc 31.5 g/dL (30.0-36.0); Mean Corpuscular Hemoglobin 29.7 pg (28.0-34.0); Mean Corpuscular Volume 94.4 fL (80-94); Mean Platelet Volume 8.5 fL (7.4-10.4); Monocytes # 0.3 10^3/uL (0.2-0.9); Monocytes % 4.6 %; Neutrophils # 1.9 10^3/uL (1.8-7.7); Neutrophils % 34.1 %; Nucleated Red Blood Cells % 0 %; Platelet Count 377 10^3/cmm (130-400); Red Blood Count 3.23 10^6/uL (4.1-5.3); Red Cell Distribution Width 14.3 % (12.1-15.1); White Blood Count 5.5 10^3/uL (4.0-10.0)
[2019-10-17 04:40] LABS: Alanine Aminotransferase 13 U/L (0-41); Albumin Level 3.5 g/dL (3.5-5.2); Alkaline Phosphatase 224 IU/L (40-130); Anion Gap 14.6 (5-19); Aspartate Amino Transferase 25 U/L (0-40); Blood Urea Nitrogen 12 mg/dL (6-20); Calcium 7.4 mg/dL (8.5-10.5); Carbon Dioxide 17 mmol/L (22-29); Chloride 109 mmol/L (98-107); Globulin 3.3 g/dL (1.3-4.6); Glomerular Filtration Rate 149.2 mL/min (90-130); Glucose 81 mg/dL (65-115); Osmolality Calculated 277 mOsm/kg (285-295); Potassium 4.6 mmol/L (3.5-5.1); Sodium 136 mmol/L (136-145); Total Bilirubin 0.2 mg/dL (0.15-1.2); Total Protein 6.8 g/dL (6.6-8.7)
[2019-10-17] MEDS: dextrose 5%-sod chloride 0.9% 1,000 ML 75 ML IV (07:21)
[2019-10-17] MEDS: heparin 5,000 unit/mL INJ 1 mL 5000 UNIT SUBCUT ×2 (08:28→20:29)
[2019-10-17] MEDS: hydrocortisone 10 mg Tablet PO (08:28)
[2019-10-17] MEDS: sertraline 50 mg Tablet PO (08:28)
[2019-10-17] MEDS: sucralfate 1 gm Tablet PO ×2 (08:28→18:09)
[2019-10-17] MEDS: aspirin 81 mg EC Tablet PO (08:28)
[2019-10-17] MEDS: morphine ER (12 HR) 30 mg tablet PO ×2 (08:31→18:09)
--- NOTE | 2019-10-17 09:25 | PC.CHAP ---
Pastoral Care Encounter/Spiritual Assessment Type of Contact [] Declined photographic process attendant visit [] Patient/Family/Request visit [] Outpatient visit [] Follow-up visit [] Physician referral [] Code/Alert [x] Routine visit [] Staff referral [] Actively dying [x] Patient sleeping [] Family support [] [] Out of room [] Palliative care [] [] Receiving care in room [] Pre-surgical visit [] Trauma [] Long length of stay [] ICU visit [] Other: Relational/Emotional Strength [] Patient feels connected with others/family/visitors/staff [] Distress [] Loneliness/isolation [] Abandonment Spirituality of Patient [] Person of Shira [] Attends Lutheran of their Shira [] Believes in Prayer [] Reads Bible or Orthodoxy materials [] There are Spiritual issues to be addressed Software Engineer Web Services Interventions [] Prayer [] Active listening [] Non-anxious presence [] Spiritual/emotional support [] Crisis/trauma care [] Spiritual counseling [] Bereavement support [] Provided bereavement packet [] Provided Bible/devotional materials [] Provided toy/stuffed animal, coloring book to patient or family member [] Provided Communion [] Anointing/[place] [] Salvation [] Completed spiritual assessment [] Other: Impact on Illness or Injury [] Angry [] Fearful [] Anxious [] Often cries [] Exhaustion [] Unable to work [] Unable to attend yarsani [] Unable to walk/stand [] Unable to read [] Unable to drive [] Unable to eat/drink [] Unable to sleep [] Unable to be with family [] Patient intubated [] Other: Summary Time spent with patient
[2019-10-17] MEDS: oxyCODONE 5 mg IR Tab/Cap 20 MG PO ×2 (10:36→19:35)
--- NOTE | 2019-10-17 10:39 | PC.RESP ---
Smoking Cessation information and a schedule of classes to patient.
--- NOTE | 2019-10-17 12:18 | P.PN_ITS ---
Subjective Subjective: Interval history: Lit reports that he has quite a bit of abdominal pain still. He would like adjustment of his medications. He was able to eat a small amount this morning. He would like to set up with hospice. He would really like his PEG tube to work as well. Medications: Reviewed: Yes Vitals/I&O/Wt Last Vital Signs Temp 97.7 F 10/17/19 11:13 Pulse 72 10/17/19 11:13 Resp 16 10/17/19 11:13 BP 109/68 10/17/19 11:13 Pulse Ox 99 10/17/19 11:13 10/16/19 10/17/19 10/17/19 22:59 06:59 14:59 Intake Total 800 / 2621 1000 / 1000 Output Total 1100 / 1700 300 / 2000 900 / 900 Balance -1100 / 121 500 / 621 100 / 100 Weight last 48 hrs Weight 75.206 kg Weight 73.618 kg Weight 63.503 kg Physical Exam Narrative: EXAM NARRATIVE: General exam is a cachectic white male, no apparent distress Cardiovascular regular rate and rhythm without murmur Lungs clear Abdomen is soft, positive bowel sounds. No obvious organomegaly. PEJ tube site without infection Extremities no cyanosis clubbing or edema Data : 10/17/19 03:56 10/17/19 03:56 Micro: Microbiology 10/15/19 22:25 MRSA Culture - Final Nose A&P Assessment and plan (1) Nausea vomiting and diarrhea: Resolved. PEJ distal port appears to be in esophagus on initial CT scan and likely KUB done on follow-up. Discussed with radiology. Hold any feedings through this. Consult surgery. 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 Consider replacing with PEG. Status: Acute (4) Patient on palliative antineoplastic chemotherapy: Status: Acute (5) Chronic steroid use: Continue hydrocortisone Status: Acute (6) Chronically on opiate therapy: Status: Acute (7) Long QT interval: Reviewed medication list to make sure no medications are causing this. 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
[2019-10-17] MEDS: morphine 4 mg/mL SDV 1 mL 1 MG IVP ×4 (13:02→22:50)
--- NOTE | 2019-10-17 13:13 | P.CONIM_ITS ---
Providers/Reason For Consult Consulting Physican/Specialty*: Dr. Galindo Reason for Consult*: Nonfunctioning GJ tube Attending Physician: Michael Galindo MD History of Present Illness History of Present Illness Lit Souza is a 39 year old male status post nephrectomy endarterectomy for adrenal cortical cancer was now developed metastatic disease. Patient had a GJ tube placed couple of weeks ago at an outside facility. Patient presented to the ER with intractable nausea and vomiting and the jejunostomy portion of the GJ tube has not been functioning well. Patient complains of pain around the tube site Review of Systems General: Reports: 10 or more systems reviewed and unremarkable except in HPI and below Meds/Allergies Home Medications and Allergies Home Medications Medication Instructions Recorded Confirmed Last Taken Type Lysodren 2,500 mg PO BID 05/14/19 10/15/19 08/10/19 History alprazolam 1 mg PO BID 05/14/19 10/15/19 08/10/19 History hydrocortisone See Rx Instructions .ROUTE .COMPLEX 05/14/19 10/15/19 08/10/19 History lorazepam 1 mg PO TID PRN 05/14/19 10/15/19 08/10/19 History morphine 15 mg PO BID 05/14/19 10/15/19 08/10/19 History morphine 30 mg PO BID 05/14/19 10/15/19 08/10/19 History ondansetron 8 mg PO Q12H PRN 05/14/19 10/15/19 Unknown History oxycodone-acetaminophen [Percocet] 1 tab PO Q6H PRN 05/14/19 10/15/19 08/10/19 History sertraline [Zoloft] 50 mg PO DAILY 05/14/19 10/15/19 08/10/19 History aspirin 81 mg PO DAILY #30 tab 08/12/19 10/15/19 Unknown Rx pantoprazole 40 mg PO DAILY 10/15/19 10/15/19 Unknown History sucralfate [Carafate] 1 g PO BID 10/15/19 10/15/19 Unknown History Allergies Allergy/AdvReac Type Severity Reaction Status Date / Time Penicillins Allergy Unknown Verified 10/15/19 14:13 Current Medications Current Medications Generic Name Dose Route Start Last Admin Trade Name Freq PRN Reason Stop Dose Admin Aspirin 81 mg 10/16/19 09:00 10/17/19 08:28 Aspirin Ec PO 81 mg DAILY RYAN Administration Heparin Sodium (Beef Lung) 5,000 unit 10/15/19 21:08 10/17/19 08:28 Heparin SUBCUT 5,000 unit Q12H RYAN Administration Hydrocortisone 10 mg 10/17/19 09:00 10/17/19 08:28 Cortef Tab PO 10 mg DAILY RYAN Administration Dextrose/Sodium Chloride 1,000 mls @ 75 mls/hr 10/15/19 21:08 10/17/19 07:21 Dextrose 5%-Sod Chloride 0.9% IV 75 mls/hr .[id number] RYAN Administration Lorazepam 1 mg 10/15/19 18:20 10/17/19 03:43 Ativan PO 1 mg TID PRN Administration Nausea Lorazepam 0.5 mg 10/15/19 21:08 10/17/19 01:19 Ativan IVP 0.5 mg Q4H PRN Administration ANXIETY Morphine Sulfate 30 mg 10/16/19 09:00 10/17/19 08:31 Ms Contin PO 30 mg BID RYAN Administration Morphine Sulfate 1 mg 10/17/19 12:43 10/17/19 13:02 Morphine IVP 1 mg Q2H PRN Administration SEVERE PAIN Oxycodone HCl 20 mg 10/17/19 10:14 10/17/19 10:36 Oxycodone Ir PO 20 mg Q4H PRN Administration SEVERE PAIN Promethazine HCl 12.5 mg 10/15/19 21:08 10/16/19 01:50 Phenergan IM 12.5 mg Q6H PRN Administration NAUSEA Sertraline HCl 50 mg 10/16/19 09:00 10/17/19 08:28 Zoloft PO 50 mg DAILY RYAN Administration Sucralfate 1 gm 10/16/19 09:00 10/17/19 08:28 Carafate PO 1 gm BID RYAN Administration PFSH Acute PFSH: Medical History Adrenal insufficiency Cancer Chronic steroid use Chronically on opiate therapy Drug abuse Drug screen positive for Meth and cocaine 07/2019 Hyperkalemia Resolved Jejunostomy tube in situ Long QT interval 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 Unchanged Non compliance with medical treatment Patient on palliative antineoplastic chemotherapy Shock liver Resolved Smoking addiction Counseled Surgical History History of right nephrectomy Hx of cholecystectomy Hx of total adrenalectomy Family History Grandmother Kidney malignant neoplasm Social History Smoking and tobacco status: current every day smoker cigarettes Packs smoked per day: 1 Alcohol intake: never Household members: spouse and children Marital status: Current occupational status: disabled Vitals/I&O/Wt Last Vital Signs Temp 97.7 F 10/17/19 11:13 Pulse 72 10/17/19 11:13 Resp 16 10/17/19 13:02 BP 109/68 10/17/19 11:13 Pulse Ox 99 10/17/19 11:13 10/16/19 10/17/19 10/17/19 22:59 06:59 14:59 Intake Total 800 / 2621 1000 / 1000 Output Total 1100 / 2000 300 / 2000 900 / 900 Balance -1100 / 621 500 / 621 100 / 100 Weight last 48 hrs Weight 165 lb 12.8 oz Weight 162 lb 4.8 oz Weight 140 lb Physical Exam Narrative: EXAM NARRATIVE: HEENT: Normocephalic Eye: Sclera /conjunctiva normal Abdomen: Soft to palpation, GJ tube in the left upper quadrant Neurological: Oriented to place person and time Skin: Intact, no lesions appreciated on gross exam Data Micro: Micro: Microbiology 10/15/19 22:25 MRSA Culture - Fin al Nose A&P Assessment and plan (1) Jejunostomy tube in situ: 39-year-old gentleman with metastatic adrenocortical cancer with a nonfunctioning GJ tube who is going to be going on hospice care. Discussed options with the patient and he would like the GJ tube to be changed to a G-tube which will perform with EGD. Procedure, risks, benefits and alternatives have been discussed with the patient who wishes to proceed with surgery. Status: Acute Coding Level of Care Code Acute Sign Language Teacher for Chg Fwd Diagnoses Jejunostomy tube in situ Z93.4
[2019-10-17] MEDS: sodium chloride 0.9% 1,000 ML 30 ML IV (19:35)
[2019-10-18] VITALS (29 sets, daily range): BP systolic 96–133; BP diastolic 55–87; PULSE 74–88; RESP 16–18; TEMP 36.2–37.4; O2SAT 97–100
[2019-10-18] MEDS: morphine 4 mg/mL SDV 1 mL 1 MG IVP ×8 (02:02→21:34)
[2019-10-18] MEDS: promethazine 25 mg/mL SDV 1 mL 12.5 MG IM (03:20)
[2019-10-18] MEDS: oxyCODONE 5 mg IR Tab/Cap 20 MG PO ×2 (03:23→21:00)
[2019-10-18 05:40] LABS: Basophils % 0.9 %; Eosinophils # 0.4 10^3/uL (0.0-0.8); Eosinophils % 16.1 %; Hematocrit 56.9 % (42.0-52.0); Hemoglobin 18.4 g/dL (11.7-16.6); Lymphocytes # 1.1 10^3/uL (0.8-4.8); Lymphocytes % 48.2 %; Mean Corpuscular HGB Conc 32.3 g/dL (30.0-36.0); Mean Corpuscular Hemoglobin 29.6 pg (28.0-34.0); Mean Corpuscular Volume 91.6 fL (80-94); Mean Platelet Volume 8.9 fL (7.4-10.4); Monocytes # 0.1 10^3/uL (0.2-0.9); Monocytes % 4.5 %; Neutrophils % 30.3 %; Nucleated Red Blood Cells % 0 %; Platelet Count 119 10^3/cmm (130-400); Red Blood Count 6.21 10^6/uL (4.1-5.3); Red Cell Distribution Width 14.8 % (12.1-15.1); White Blood Count 2.2 10^3/uL (4.0-10.0)
[2019-10-18 05:47] LABS: Neutrophils # 0.7 10^3/uL (1.8-7.7)
[2019-10-18 05:50] LABS: Anion Gap 16.4 (5-19); Blood Urea Nitrogen 12 mg/dL (6-20); Calcium 7.5 mg/dL (8.5-10.5); Carbon Dioxide 18 mmol/L (22-29); Chloride 109 mmol/L (98-107); Glomerular Filtration Rate 124.9 mL/min (90-130); Glucose 75 mg/dL (65-115); Osmolality Calculated 279 mOsm/kg (285-295); Potassium 6.4 mmol/L (3.5-5.1); Sodium 137 mmol/L (136-145)
[2019-10-18] MEDS: sucralfate 1 gm Tablet PO ×2 (08:08→17:39)
[2019-10-18] MEDS: morphine ER (12 HR) 30 mg tablet PO ×2 (08:09→17:37)
[2019-10-18] MEDS: sertraline 50 mg Tablet PO (08:10)
[2019-10-18] MEDS: hydrocortisone 10 mg Tablet PO (08:10)
[2019-10-18] MEDS: aspirin 81 mg EC Tablet PO (08:11)
[2019-10-18] MEDS: sodium chloride 0.9% 1,000 ML 30 ML IV (10:34)
[2019-10-18] MEDS: fentaNYL 50 mcg/mL INJ 2mL IVP (10:40)
--- NOTE | 2019-10-18 10:53 | ANES.PREANE2 ---
Pre-Anesthetic Assessment Pre-Anesthetic Assessment: Height/Weight: Height 1.83 m Weight 76.345 kg Temp Pulse Resp BP Pulse Ox 97.2 F L 76 16 123/62 100 10/18/19 10:23 10/18/19 10:23 10/18/19 10:40 10/18/19 10:23 10/18/19 10:40 Preop Diagnosis: non functionng tube Proposed Procedure: Operation Date: 10/18/19 10:45 Proposed Procedures p EGD(Not Applicable) - Fabrizio Mishra MD s PEG Tube Insertion Change(Not Applicable) - Fabrizio Mishra MD Social: Social History: Tobacco and No alcohol Exam: Pre-Anes Outpt Exam: alert, oriented x 3, clear to auscultation bilaterally and regular rate & rhythm Airway: Submandibular: WNL Cervical ROM: WNL MP: 2 Dentition: Other (teeth poor) History/ROS: No significant history except as noted Pulmonary: Pulmonary: None reported CV/HEM: CV/HEM: None reported : Comments: s/p nephrectomy Hepatic: Hepatic: None reported GI: GI: GERD Metabolic: Metabolic: None reported Musc/skel: Musc/skel: None reported Neuropsych: Neuropsych: Anxiety and Depression Anesthetic Plan: ASA status: 3 Anesthesia: Anesthesia Evaluation and MAC Risk of > 500 ml blood loss (7ml/kg in children): No Meds/Allergies Current Medications: Current Medications Generic Name Dose Route Start Last Admin Trade Name Freq PRN Reason Stop Dose Admin Aspirin 81 mg 10/16/19 09:00 10/18/19 08:11 Aspirin Ec PO 81 mg DAILY RYAN Administration Fentanyl 50 mcg 10/18/19 10:21 10/18/19 10:40 Sublimaze IVP 50 mcg Q10M PRN Administration Preop Pain Heparin Sodium (Be ef Lung) 5,000 unit 10/15/19 21:08 10/18/19 08:11 Heparin SUBCUT Not Given Q12H RYAN Hydrocortisone 10 mg 10/17/19 09:00 10/18/19 08:10 Cortef Tab PO 10 mg DAILY RYAN Administration Sodium Chloride 1,000 mls @ 30 ml s/hr 10/17/19 13:11 10/17/19 19:35 Sodium Chloride 0.9% IV 10/18/19 13:10 30 mls/hr .Q24H ONE Administration Sodium Chloride 1,000 mls @ 30 ml s/hr 10/18/19 10:30 10/18/19 10:34 Sodium Chloride 0.9% IV 10/19/19 10:29 30 mls/hr .Q24H RYAN Administration Lorazepam 1 mg 10/15/19 18:20 10/17/19 03:43 Ativan PO 1 mg TID PRN Administration Nausea Lorazepam 0.5 mg 10/15/19 21:08 10/17/19 01:19 Ativan IVP 0.5 mg Q4H PRN Administration ANXIETY Morphine Sulfate 30 mg 10/16/19 09:00 10/18/19 08:09 Ms Contin PO 30 mg BID RYAN Administration Morphine Sulfate 1 mg 10/17/19 12:43 10/18/19 08:23 Morphine IVP 1 mg Q2H PRN Administration SEVERE PAIN Oxycodone HCl 20 mg 10/17/19 10:14 10/18/19 03:23 Oxycodone Ir PO 20 mg Q4H PRN Administration SEVERE PAIN Promethazine HCl 12.5 mg 10/15/19 21:08 10/18/19 03:20 Phenergan IM 12.5 mg Q6H PRN Administration NAUSEA Sertraline HCl 50 mg 10/16/19 09:00 10/18/19 08:10 Zoloft PO 50 mg DAILY RYAN Administration Sucralfate 1 gm 10/16/19 09:00 10/18/19 08:08 Carafate PO 1 gm BID RYAN Administration PFSH Anesthesia PFSH: Medical History Adrenal insufficiency Cancer Chronic steroid use Chronically on opiate therapy Drug abuse Drug screen positive for Meth and cocaine 07/2019 Hyperkalemia Resolved Jejunostomy tube in situ Long QT interval 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 Unchanged Non compliance with medical treatment Patient on palliative antineoplastic chemotherapy Shock liver Resolved Smoking addiction Counseled Surgical History History of right nephrectomy Hx of cholecystectomy Hx of total adrenalectomy Family History Grandmother Kidney malignant neoplasm Social History Smoking and tobacco status: current every day smoker cigarettes Packs smoked per day: 1 Alcohol intake: never Household members: spouse and children Marital status: Current occupational status: disabled Data Anesthesia CBC & Chem 7: 10/18/19 04:40 10/18/19 04:40 Other Labs: Laboratory Results - last 48 hr 10/16/19 10/17/19 10/17/19 17:45 03:56 03:56 WBC 5.5 RBC 3.23 L Hgb 9.6 L Hct 30.5 L MCV 94.4 H MCH 29.7 MCHC 31.5 RDW 14.3 Plt Count 377 MPV 8.5 Neut % (Auto) 34.1 Lymph % (Auto) 50.2 [place] % (Auto) 4.6 Eos % (Auto) 10.2 Baso % (Auto) 0.7 Neut # (Auto) 1.9 Lymph # (Auto) 2.8 [place] # (Auto) 0.3 Eos # (Auto) 0.6 Baso # (Auto) 0.0 Nucleated RBC % (auto) 0 Nucleated RBCs # 0.0 Sodium 132 L 136 Potassium 4.9 4.6 Chloride 107 109 H Carbon Dioxide 15 L 17 L Anion Gap 14.9 14.6 BUN 11 12 Creatinine 0.6 L 0.6 L GFR Calculation 149.2 H 149.2 H Glucose 94 81 Calculated Osmolality 270 L 277 L Calcium 7.4 L 7.4 L Total Bilirubin 0.2 AST 25 ALT 13 Alkaline Phosphatase 224 H Total Protein 6.8 Albumin 3.5 Globulin 3.3 10/18/19 10/18/19 04:40 04:40 WBC 2.2 L RBC 6.21 H Hgb 18.4 H Hct 56.9 H MCV 91.6 MCH 29.6 MCHC 32.3 RDW 14.8 Plt Count 119 L MPV 8.9 Neut % (Auto) 30.3 Lymph % (Auto) 48.2 [place] % (Auto) 4.5 Eos % (Auto) 16.1 Baso % (Auto) 0.9 Neut # (Auto) 0.7 L* Lymph # (Auto) 1.1 [place] # (Auto) 0.1 L Eos # (Auto) 0.4 Baso # (Auto) 0.0 Nucleated RBC % (auto) 0 Nucleated RBCs # 0.0 Sodium 137 Potassium 6.4 H Chloride 109 H Carbon Dioxide 18 L Anion Gap 16.4 BUN 12 Creatinine 0.7 GFR Calculation 124.9 Glucose 75 Calculated Osmolality 279 L Calcium 7.5 L Total Bilirubin AST ALT Alkaline Phosphatase Total Protein Albumin Globulin Cardiac Studies: No Data to Display
--- NOTE | 2019-10-18 15:04 | PM.PN ---
Subjective Subjective: Interval history: Lit underwent PEG placement today. He denies any specific complaints postoperatively. Medications: Reviewed: Yes Vitals/I&O/Wt Last Vital Signs Temp 98.3 F 10/18/19 14:00 Pulse 81 10/18/19 14:00 Resp 18 10/18/19 14:00 BP 112/73 10/18/19 14:00 Pulse Ox 97 10/18/19 14:34 10/18/19 10/18/19 10/18/19 06:59 14:59 22:59 Intake Total 500 / 500 Output Total 470 / 2020 300 / 300 Balance -470 / -780 200 / 200 Weight last 48 hrs Weight 76.345 kg Weight 75.206 kg Physical Exam Narrative: EXAM NARRATIVE: General exam is a cachectic white male, no apparent distress Cardiovascular regular rate and rhythm without murmur Lungs clear Abdomen is soft, positive bowel sounds. No obvious organomegaly. PEG tube is in place Extremities no cyanosis clubbing or edema Data : 10/18/19 04:40 10/18/19 04:40 Other data: Laboratory error as CBC and BMP markedly different including hemoglobin. To make sure no issues are going on we will repeat BMP and potassium. A&P Assessment and plan (1) Nausea vomiting and diarrhea: Resolved. PEJ distal port appears to be in esophagus on initial CT scan and likely KUB done on follow-up. Discussed with radiology. Hold any feedings through this. Consult surgery. PEJ has now been removed and PEG placed. 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 Status: Acute Qualifiers: Laterality: unspecified laterality Qualified Code(s): C79.70 - Secondary malignant neoplasm of unspecified adrenal gland (3) Jejunostomy tube in situ: Discussed with surgery. Replaced with PEG tube today Status: Acute (4) Patient on palliative antineoplastic chemotherapy: Status: Acute (5) Chronic steroid use: Continue hydrocortisone Status: Acute (6) Chronically on opiate therapy: Status: Acute (7) Long QT interval: Reviewed medication list to make sure no medications are causing this. 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
[2019-10-18 15:32] LABS: Anion Gap 15.2 (5-19); Blood Urea Nitrogen 11 mg/dL (6-20); Calcium 7.3 mg/dL (8.5-10.5); Carbon Dioxide 17 mmol/L (22-29); Chloride 109 mmol/L (98-107); Glomerular Filtration Rate 124.9 mL/min (90-130); Glucose 95 mg/dL (65-115); Osmolality Calculated 276 mOsm/kg (285-295); Potassium 6.2 mmol/L (3.5-5.1); Sodium 135 mmol/L (136-145)
[2019-10-18] MEDS: calcium carbonate 500 mg Chew Tablet 1000 MG PO (16:50)
[2019-10-18] MEDS: sodium chloride 0.9% 1,000 ML 75 ML IV (17:37)
[2019-10-18] MEDS: sodium polystyrene sulfonate 15 gm/60 mL Btl PEG-TUBE (17:39)
[2019-10-18] MEDS: heparin 5,000 unit/mL INJ 1 mL 5000 UNIT SUBCUT (21:34)
[2019-10-19] VITALS (11 sets, daily range): BP systolic 102–112; BP diastolic 55–74; PULSE 75–83; RESP 16–18; TEMP 36.5–36.7; O2SAT 97–100
[2019-10-19] MEDS: morphine 4 mg/mL SDV 1 mL 1 MG IVP ×3 (00:25→12:18)
[2019-10-19] MEDS: LORazepam 2 mg/mL INJ 1 mL 0.5 MG IVP (00:26)
[2019-10-19 03:14] LABS: Basophils % 0.7 %; Eosinophils # 0.5 10^3/uL (0.0-0.8); Eosinophils % 8.3 %; Hematocrit 27.5 % (42.0-52.0); Hemoglobin 8.7 g/dL (11.7-16.6); Lymphocytes # 2.9 10^3/uL (0.8-4.8); Lymphocytes % 53.2 %; Mean Corpuscular HGB Conc 31.6 g/dL (30.0-36.0); Mean Corpuscular Hemoglobin 30.4 pg (28.0-34.0); Mean Corpuscular Volume 96.2 fL (80-94); Mean Platelet Volume 8.6 fL (7.4-10.4); Monocytes # 0.3 10^3/uL (0.2-0.9); Neutrophils # 1.8 10^3/uL (1.8-7.7); Neutrophils % 31.6 %; Nucleated Red Blood Cells % 0 %; Platelet Count 268 10^3/cmm (130-400); Red Blood Count 2.86 10^6/uL (4.1-5.3); Red Cell Distribution Width 14.6 % (12.1-15.1); White Blood Count 5.5 10^3/uL (4.0-10.0)
[2019-10-19 03:51] LABS: Slide Review Slide Review Perform
[2019-10-19 04:01] LABS: Anion Gap 12.6 (5-19); Blood Urea Nitrogen 8 mg/dL (6-20); Calcium 6.9 mg/dL (8.5-10.5); Carbon Dioxide 18 mmol/L (22-29); Chloride 112 mmol/L (98-107); Glomerular Filtration Rate 149.2 mL/min (90-130); Glucose 79 mg/dL (65-115); Osmolality Calculated 277 mOsm/kg (285-295); Sodium 136 mmol/L (136-145)
[2019-10-19] MEDS: oxyCODONE 5 mg IR Tab/Cap 20 MG PO ×2 (04:16→13:22)
[2019-10-19] MEDS: sodium chloride 0.9% 1,000 ML 75 ML IV (04:26)
[2019-10-19 04:48] LABS: Potassium 6.6 mmol/L (3.5-5.1)
[2019-10-19] MEDS: insulin regular-human 10 UNIT in SYRINGE 1 EACH IVP (05:59)
[2019-10-19] MEDS: dextrose 50% syringe 50 mL 25 ML IVP (05:59)
[2019-10-19] MEDS: sodium polystyrene sulfonate 15 gm/60 mL Btl PO (05:59)
[2019-10-19] MEDS: aspirin 81 mg EC Tablet PO (08:33)
[2019-10-19] MEDS: morphine ER (12 HR) 30 mg tablet PO (08:33)
[2019-10-19] MEDS: sertraline 50 mg Tablet PO (08:33)
[2019-10-19] MEDS: sucralfate 1 gm Tablet PO (08:33)
--- NOTE | 2019-10-19 09:25 | PC.SOCIAL ---
IMM Page 2 of IMM explained to patient and given with [facility] number. Initialed, dated, and timed and placed in chart.
[2019-10-19] MEDS: heparin 5,000 unit/mL INJ 1 mL 5000 UNIT SUBCUT (10:01)
[2019-10-19] MEDS: hydrocortisone 10 mg Tablet PO (10:01)
[2019-10-19 11:38] LABS: Potassium 5.1 mmol/L (3.5-5.1)
--- NOTE | 2019-10-19 12:18 | PM.DCS ---
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: Status: Acute Problem details: Unchanged Qualifiers: Laterality: unspecified laterality Qualified Code(s): C79.70 - Secondary malignant neoplasm of unspecified adrenal gland (3) Jejunostomy tube in situ: Status: Acute (4) Patient on palliative antineoplastic chemotherapy: Status: Acute (5) Chronic steroid use: Status: Acute (6) Chronically on opiate therapy: Status: Acute (7) Long QT interval: Status: Acute (8) Adrenal insufficiency: Status: Acute Reason for Visit Reason for Visit: ABD PAIN Hospital Course Hospital Course: Lit is a 39-year-old man with metastatic adrenal cancer presented to the hospital with intractable nausea and vomiting. Several weeks ago he had had a jejunostomy tube placed. During his hospital stay he received IV fluids for hydration. Review of jejunostomy tube occurred in this distal end appeared to be in his distal esophagus. As this was nonfunctioning, surgery was consulted and they replaced this with a PEG tube. During the patient's hospital stay the PEG tube was functional. He was also able to eat and drink some by mouth without significant vomiting. Many discussions were held with the patient during his hospital stay regarding his current status. He elected to go on hospice and this was arranged. He was discharged October 18. He did have some issues with hyperkalemia in the hospital, likely related to renal tubular acidosis. He was not on any medications that would cause this and was not taking any potassium. Consideration for repeat BMP in 2 to 3 days. Physical Exam Narrative: EXAM NARRATIVE: General exam no apparent distress Cardiovascular regular rhythm without murmur Lungs clear Abdomen is soft. PEG tube noted. Extremities no cyanosis clubbing or edema Discharge Data Data Completed and Pending: Completed Studies During Hospitalization Category Date Time Status CT abdomen pelvis wo con [id number] Urge nt Cat Scan 10/15/19 13:58 Completed XR KUB portable 7 [id number] Routine Exams 10/15/19 19:05 Completed Pending at discharge Category Date Time Status Clostridioides Di fficile PCR Routin e Lab 10/15/19 21:08 Ordered Enteric Bacterial Panel by PCR Rout ine Lab 10/15/19 21:08 Ordered Enteric Parasite Panel by PCR Routi ne Lab 10/15/19 21:08 Ordered Immunochemical Fe nguyễn OCB Routine Lab 10/15/19 21:08 Ordered Lactoferrin Routi ne Lab 10/15/19 21:08 Ordered Labs from last 24 hours 10/19/19 10/19/19 10/19/19 11:02 02:40 02:40 WBC 5.5 RBC 2.86 L Hgb 8.7 L D Hct 27.5 L D MCV 96.2 H D MCH 30.4 MCHC 31.6 RDW 14.6 Plt Count 268 MPV 8.6 Neut % (Auto) 31.6 Lymph % (Auto) 53.2 [place] % (Auto) 6.0 Eos % (Auto) 8.3 Baso % (Auto) 0.7 Neut # (Auto) 1.8 Lymph # (Auto) 2.9 [place] # (Auto) 0.3 Eos # (Auto) 0.5 Baso # (Auto) 0.0 Nucleated RBC % (a uto) 0 Nucleated RBCs # 0.0 Sodium 136 Potassium 5.1 6.6 H* Chloride 112 H Carbon Dioxide 18 L Anion Gap 12.6 BUN 8 Creatinine 0.6 L GFR Calculation 149.2 H Glucose 79 Calculated Osmolal ity 277 L Calcium 6.9 L 10/18/19 15:03 WBC RBC Hgb Hct MCV MCH MCHC RDW Plt Count MPV Neut % (Auto) Lymph % (Auto) [place] % (Auto) Eos % (Auto) Baso % (Auto) Neut # (Auto) Lymph # (Auto) [place] # (Auto) Eos # (Auto) Baso # (Auto) Nucleated RBC % (a uto) Nucleated RBCs # Sodium 135 L Potassium 6.2 H Chloride 109 H Carbon Dioxide 17 L Anion Gap 15.2 BUN 11 Creatinine 0.7 GFR Calculation 124.9 Glucose 95 Calculated Osmolal ity 276 L Calcium 7.3 L Vitals: Last Vital Signs Temp 98.0 F 10/19/19 10:49 Pulse 75 10/19/19 10:51 Resp 18 10/19/19 10:51 BP 102/55 10/19/19 10:51 Pulse Ox 100 10/19/19 10:51 Discharge Plan Discharge Patient Disposition: Hospice - Home Condition: Stable Prescriptions: New sodium bicarbonate 650 mg tablet 325 mg PO BID Qty: 60 RF: 0 morphine concentrate 100 mg/5 mL (20 mg/mL) solution 10 mg BUCCAL Q4H Qty: 30 RF: 0 morphine 30 mg tablet extended release 30 mg PO BID Qty: 60 RF: 0 oxycodone-acetaminophen [Percocet] 10-325 mg tablet 1 tab PO Q6H PRN (Reason: Pain) Qty: 30 RF: 0 lorazepam 1 mg tablet 1 mg PO TID PRN (Reason: Nausea) Qty: 30 RF: 0 Continued sucralfate [Carafate] 1 gram Tablet 1 g PO BID Qty: 60 RF: 0 ondansetron 8 mg tablet,disintegrating 8 mg PO Q12H PRN (Reason: Nausea) Qty: 60 RF: 0 pantoprazole 40 mg Tablet,Delayed Release (Dr/Ec) 40 mg PO DAILY Qty: 30 RF: 0 hydrocortisone 10 mg tablet See Rx Instructions .ROUTE .COMPLEX Qty: 90 RF: 0 sertraline [Zoloft] 50 mg tablet 50 mg PO DAILY Qty: 30 RF: 0 Discontinued Lysodren 500 mg tablet 2,500 mg PO BID RF: 0 alprazolam 1 mg tablet 1 mg PO BID RF: 0 morphine 15 mg tablet extended release 15 mg PO BID RF: 0 aspirin 81 mg Tablet,Delayed Release (Dr/Ec) 81 mg PO DAILY Qty: 30 RF: 0 Discharge Orders: Discharge Order (Routine); Ordered 10/19/19 Ordered By: Michael Galindo Referrals: [facility] [Other] [facility] [Other] Discharge Diet: Advance as tolerated Discharge Activity: Resume usual activity Patient Instructions: GI Discharge Instructions Activity Restrictions/Additional Instructions: Consider BMP in 2 to 3 days by hospice for check of potassium level. 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
[2019-10-19] MEDS: sodium bicarbonate 650 mg Tablet PEG-TUBE (13:22)
== END 2019-10-19 14:30 | disposition hospice, home (50) | DRG 394 ==
LOC: ER 13:53 → MEDSURG 18:27
PROVIDERS: Family Medicine; Internal Medicine; Student in an Organized Health Care Education/Training Program; Surgery; Admitting Provider Student in an Organized Health Care Education/Training Program; Visit Provider Internal Medicine
PROC: 0DJ08ZZ Inspection of Upper Intestinal Tract, Via Natural or Artificial Opening Endoscopic (ICD-10-PCS; CPT 43235; principal; 2019-10-18 10:45)
PROC: 0DH63UZ Insertion of Feeding Device into Stomach, Percutaneous Approach (ICD-10-PCS; CPT 43246; 2019-10-18 10:45)
DX: K94.23 Gastrostomy malfunction (principal); C79.70 Secondary malignant neoplasm of unspecified adrenal gland; E27.40 Unspecified adrenocortical insufficiency; R19.7 Diarrhea, unspecified; N25.89 Other disorders resulting from impaired renal tubular function; Z79.891 Long term (current) use of opiate analgesic; Z79.52 Long term (current) use of systemic steroids; Z51.5 Encounter for palliative care; Z79.82 Long term (current) use of aspirin; F17.210 Nicotine dependence, cigarettes, uncomplicated
CPT/HCPCS: 12345; 36415; 43246; 74018; 74176; 80048; 80053; 80306; 81001; 82533; 83540; 83550; 83605; 83690; 83735; 84100; 84132; 84145; 85025; 86140; 87641; 93005; 94640; 94664; 96372; 96375; 99284; G0378; J0610; J1644; J1815; J2060; J2270; J2405; J2550; J2704; J2765; J3010; J3475; J7030; J7611; J8499

== ENCOUNTER → 2021-01-07 11:04 | Outpatient (BNVA) | payer MEDICARE, SELFPAY | PROVIDERS: Visit Provider Podiatrist Foot & Ankle Surgery | DX: S92.352A Displaced fracture of fifth metatarsal bone, left foot, initial encounter for closed fracture (principal); X58.XXXA Exposure to other specified factors, initial encounter | CPT/HCPCS: 73630 ==

== ENCOUNTER 2021-01-07 15:24 | Outpatient (CLI) | payer MEDICARE, SELFPAY | END 2021-01-07 15:25 | disposition home or self-care (01) | LOC: SPT 15:26 | PROVIDERS: Visit Provider Podiatrist Foot & Ankle Surgery | DX: Z46.89 Encounter for fitting and adjustment of other specified devices (principal); S92.352D Displaced fracture of fifth metatarsal bone, left foot, subsequent encounter for fracture with routine healing; X58.XXXD Exposure to other specified factors, subsequent encounter; S92.352A Displaced fracture of fifth metatarsal bone, left foot, initial encounter for closed fracture; X58.XXXA Exposure to other specified factors, initial encounter | CPT/HCPCS: 73630; 97760; L4361 ==